=== PATIENT | male | born 1945 | race Caucasian/White ===

== ENCOUNTER 2023-08-21 10:40 | Emergency (ER) | payer MEDICARE, OTHER ==
[2023-08-21 11:31] LABS: Basophils % (A) 1 %; Eosinophils # (A) 0.1 k/uL (0-0.7); Eosinophils % (A) 2 %; HCT 41.1 % (39.0-53.0); HGB 13.4 gm/dL (13.0-17.5); Lymphocytes # (A) 0.9 k/uL (1.0-4.8); Lymphocytes % (A) 21 %; MCH 32.5 pg (25.0-35.0); MCHC 32.6 g/dL (31.0-37.0); MCV 99.6 fL (80.0-100.0); Mean Platelet Volume 9.4; Monocytes # (A) 0.3 k/uL (0-1.0); Monocytes % (A) 7 %; Neutrophils % (A) 68 %; Platelet Count 100 k/uL (150-450); RBC 4.13 m/uL (4.30-5.90); RDW 13.8 % (11.5-15.5); WBC 4.4 k/uL (3.8-10.6)
[2023-08-21 11:48] LABS: ALT <6 U/L (4-49); AST 18 U/L (17-59); African American GFR (CKD) 86 (>60 ml/min/1.73 sqM); Albumin 3.5 g/dL (3.5-5.0); Alcohol <10 mg/dL; Alkaline Phosphatase 65 U/L (38-126); Anion Gap 5 mmol/L; Blood Urea Nitrogen 29 mg/dL (9-20); Calcium 9.2 mg/dL (8.4-10.2); Carbon Dioxide 25 mmol/L (22-30); Chloride 108 mmol/L (98-107); Glucose 142 mg/dL (74-99); Non-African American GFR(CKD) 75 (>60 ml/min/1.73 sqM); Potassium 4.5 mmol/L (3.5-5.1); Sodium 138 mmol/L (137-145); Total Bilirubin 0.8 mg/dL (0.2-1.3); Total Protein 5.9 g/dL (6.3-8.2)
--- NOTE | 2023-08-21 11:59 | ED ---
Altered Mental Status HPI - General Chief Complaint: Altered Mental Status Stated Complaint: Failure to thrive Time Seen by Provider: 08/21/23 10:50 Source: patient Mode of arrival: EMS Limitations: no limitations, altered mental status, physical limitation - History of Present Illness Initial Comments: 77-year-old male brought into the emergency department from [facility]. They sent in the patient as they were concerned for his failure to thrive. He lost his in October. States that he has been going downhill. He has lost over 5 0 pounds because he does not have an appetite. He admits he is so depressed that he wishes he was with her. Nursing facility was concerned that the patient was slightly confused and therefore had him transferred to the hospital for evaluation. Upon my evaluation patient is alert and oriented x 3. Admits to his depression. States that he has balance issues due to his Parkinson's. Denies any head injuries. No urinary complaints. Does admit to pain in his left great toe due to an abnormal nail. No other alleviating, precipitating modifying factors - Related Data Home Medications Medication Instructions Recorded Confirmed Carbidopa-Levodopa ER 50-200Mg 1 tab PO TID@0800,1300,1800 08/21/23 08/21/23 [Sinemet CR 50-200 mg] Pramipexole [Mirapex] 0.25 mg PO BID@0800,2000 08/21/23 08/21/23 Allergies Allergy/AdvReac Type Severity Reaction Status Date / Time No Known Allergies Allergy Verified 08/21/23 13:56 Review of Systems ROS Statement: Those systems with pertinent positive or pertinent negative responses have been documented in the HPI. ROS Other: All systems not noted in ROS Statement are negative. Past Medical History Additional Past Medical History / Comment(s): parkinsons Past Surgical History: No Surgical Hx Reported Past Psychological History: No Psychological Hx Reported Smoking Status: Former smoker Past Alcohol Use History: None Reported Past Drug Use History: None Reported General Exam Limitations: no limitations General appearance: alert, in no apparent distress Head exam: Present: atraumatic, normocephalic, normal inspection Eye exam: Present: normal appearance, PERRL, EOMI. Absent: scleral icterus, conjunctival injection, periorbital swelling ENT exam: Present: normal exam, mucous membranes moist Neck exam: Present: normal inspection. Absent: tenderness, meningismus, lymphadenopathy Respiratory exam: Present: normal lung sounds bilaterally. Absent: respiratory distress, wheezes, rales, rhonchi, stridor Cardiovascular Exam: Present: regular rate, normal rhythm, normal heart sounds. Absent: systolic murmur, diastolic murmur, rubs, gallop, clicks GI/Abdominal exam: Present: soft, normal bowel sounds. Absent: distended, tenderness, guarding, rebound, rigid Extremities exam: Present: normal inspection, full ROM, normal capillary refill. Absent: tenderness, pedal edema, joint swelling, calf tenderness Back exam: Present: normal inspection Neurological exam: Present: alert, oriented X3, CN II-XII intact Psychiatric exam: Present: normal affect, normal mood Skin exam: Present: warm, dry, intact, normal color. Absent: rash Course Vital Signs 08/21/23 08/21/23 08/21/23 10:46 10:48 10:50 Temperature 98.8 F Pulse Rate 56 L 56 L Respiratory 20 16 Rate Blood Pressure 127/73 127/73 O2 Sat by Pulse 91 L 99 99 Oximetry 08/21/23 08/21/23 08/21/23 11:00 11:10 11:20 Temperature Pulse Rate 56 L 57 L 57 L Respiratory 18 18 15 Rate Blood Pressure 127/73 103/58 103/58 O2 Sat by Pulse 98 98 99 Oximetry 08/21/23 08/21/23 08/21/23 11:30 11:40 11:50 Temperature Pulse Rate 54 L 54 L 53 L Respiratory 11 L 11 L 13 Rate Blood Pressure 103/58 101/55 101/55 O2 Sat by Pulse 98 98 99 Oximetry 08/21/23 08/21/23 08/21/23 12:24 14:28 16:14 Temperature Pulse Rate 50 L 60 60 Respiratory 18 18 18 Rate Blood Pressure 120/60 98/60 100/60 O2 Sat by Pulse 99 96 97 Oximetry 08/21/23 08/21/23 08/21/23 19:00 20:24 23:30 Temperature Pulse Rate 56 L 56 L 60 Respiratory 18 18 13 Rate Blood Pressure 108/76 120/70 105/64 O2 Sat by Pulse 99 99 95 Oximetry 08/22/23 08/22/23 08/22/23 00:00 00:30 00:40 Temperature 97.4 F L Pulse Rate 60 57 L 57 L Respiratory 14 17 19 Rate Blood Pressure 107/59 107/72 100/59 O2 Sat by Pulse 98 99 97 Oximetry 08/22/23 08/22/23 08/22/23 02:30 04:30 07:55 Temperature 98.5 F Pulse Rate 57 L 54 L 56 L Respiratory 12 18 17 Rate Blood Pressure 91/52 121/67 109/68 O2 Sat by Pulse 98 97 99 Oximetry 08/22/23 08/22/23 08/22/23 09:00 10:06 14:32 Temperature 97.8 F Pulse Rate 56 L 57 L 81 Respiratory 17 16 18 Rate Blood Pressure 113/63 98/50 133/79 O2 Sat by Pulse 97 96 97 Oximetry Medical Decision Making - Medical Decision Making Was pt. sent in by a medical professional or institution (Dr. PA, CUSTOMER SUCCESS SPECIALIST, urgent care, hospital, or custodial...) When possible be specific @ -Patient sent in by [facility] Did you speak to anyone other than the patient for history (EMS, parent, family, police, friend...)? What history was obtained from this source @ -Poke with the daughter for history Did you review nursing and triage notes (agree or disagree)? Why? @ -I reviewed and agree with nursing and triage notes Were old charts reviewed (outside hosp., previous admission, EMS record, old EKG, old radiological studies, urgent care reports/EKG's, custodial records)? Report findings @ -No old charts were reviewed Differential Diagnosis (chest pain, altered mental status, abdominal pain women, abdominal pain men, vaginal bleeding, weakness, fever, dyspnea, syncope, headache, dizziness, GI bleed, back pain, seizure, CVA, palpatations, mental health, musculoskeletal)? @ -MDM altered mental status EKG interpreted by me (3pts min.). @ -Yes and demonstrates sinus bradycardia with a rate of 56. W[place] interval 188. QRS 134. QTc of 447. Right bundle branch block. No acute ST segment elevations X-rays interpreted by me (1pt min.). @ -Yes and demonstrates no acute process CT interpreted by me (1pt min.). @ -Yes and demonstrates no acute process U/S interpreted by me (1pt. min.). @ -None done What testing was considered but not performed or refused? (CT, X-rays, U/S, labs)? Why? @ -None What meds were considered but not given or refused? Why? @ -None Did you discuss the management of the patient with other professionals (professionals i.e. , PA, CUSTOMER SUCCESS SPECIALIST, lab, RT, psych nurse, social service director, apartment maintenance supervisor, teacher, staff air defense officer, porter sample case)? Give summary @ -Spoke with the EPS who feels that the patient should be transferred to [facility] Was smoking cessation discussed for >3mins.? @ -No Was critical care preformed (if so, how long)? @ -No Were there social determinants of health that impacted care today? How? (Homelessness, low income, unemployed, alcoholism, drug addiction, transpor tation, low edu. Level, literacy, decrease access to med. care, prison, rehab)? @ -Patient resides in [facility] Was there de-escalation of care discussed even if they declined (Discuss DNR or withdrawal of care, Hospice)? DNR status @ -No What co-morbidities impacted this encounter? (DM, HTN, Smoking, COPD, CAD, Cancer, CVA, ARF, Chemo, Hep., AIDS, mental health diagnosis, sleep apnea, morbid obesity)? @ -deression, Parkinson's pression, Parkinson's Was patient admitted / discharged? Hospital course, mention meds given and route, prescriptions, significant lab abnormalities, going to OR and other pertinent info. @ -Upon arrival patient seen and evaluated in room 23. Thorough history and physical exam was performed. Due to reported confusion patient has complete medical workup. He does seem appropriate. Urine is slightly abnormal and therefore will be started on antibiotic. EPS does evaluate the patient. Feels that he does need to be psychiatrically placed. Patient is pending transfer at this time Undiagnosed new problem with uncertain prognosis? @ -No Drug Therapy requiring intensive monitoring for toxicity (Heparin, Nitro, Insulin, Cardizem)? @ -No Were any procedures done? @ -No Diagnosis/symptom? @ -Failure to thrive, acute depression, abnormal UA Acute, or Chronic, or Acute on Chronic? @ -Acute, progressive Uncomplicated (without systemic symptoms) or Complicated (systemic symptoms)? @ -Complicated Side effects of treatment? @ -No Exacerbation, Progression, or Severe Exacerbation? @ -No Poses a threat to life or bodily function? How? (Chest pain, USA, IA, pneumonia, PE, COPD, DKA, ARF, appy, cholecystitis, CVA, Diverticulitis, Homicidal, Suicidal, threat to staff... and all critical care pts) @ -No - Lab Data Result diagrams: 08/21/23 11:06 08/21/23 11:06 Lab Results 08/21/23 08/21/23 08/21/23 Range/Units 11:06 11:06 11:06 WBC 4.4 (3.8-10.6) k/uL RBC 4.13 L (4.30-5.90) m/uL Hgb 13.4 (13.0-17.5) gm/dL Hct 41.1 (39.0-53.0) % MCV 99.6 (80.0-100.0) fL MCH 32.5 (25.0-35.0) pg MCHC 32.6 (31.0-37.0) g/dL RDW 13.8 (11.5-15.5) % Plt Count 100 L (150-450) k/uL MPV 9.4 Neutrophils % 68 % Lymphocytes % 21 % Monocytes % 7 % Eosinophils % 2 % Basophils % 1 % Neutrophils # 3.0 (1.3-7.7) k/uL Lymphocytes # 0.9 L (1.0-4.8) k/uL Monocytes # 0.3 (0-1.0) k/uL Eosinophils # 0.1 (0-0.7) k/uL Basophils # 0.0 (0-0.2) k/uL PT (10.0-12.5) sec INR (<1.2) APTT (22.0-30.0) sec Sodium 138 (137-145) mmol/L Potassium 4.5 (3.5-5.1) mmol/L Chloride 108 H (98-107) mmol/L Carbon Dioxide 25 (22-30) mmol/L Anion Gap 5 mmol/L BUN 29 H (9-20) mg/dL Creatinine 0.97 (0.66-1.25) mg/dL Est GFR (CKD-EPI)AfAm 86 (>60 ml/min/1.73 sqM) Est GFR (CKD-EPI)NonAf 75 (>60 ml/min/1.73 sqM) Glucose 142 H (74-99) mg/dL Calcium 9.2 (8.4-10.2) mg/dL Total Bilirubin 0.8 (0.2-1.3) mg/dL AST 18 (17-59) U/L ALT <6 (4-49) U/L Alkaline Phosphatase 65 (38-126) U/L Troponin I <0.012 (0.000-0.034) ng/mL Total Protein 5.9 L (6.3-8.2) g/dL Albumin 3.5 (3.5-5.0) g/dL Urine Color Urine Appearance (Clear) Urine pH (5.0-8.0) Ur Specific [place] (1.001-1.035) Urine Protein (Negative) Urine Glucose (UA) (Negative) Urine Ketones (Negative) Urine Blood (Negative) Urine Nitrite (Negative) Urine Bilirubin (Negative) Urine Urobilinogen (<2.0) mg/dL Ur Leukocyte Esterase (Negative) Urine RBC (0-5) /hpf Urine WBC (0-5) /hpf Urine Bacteria (None) /hpf Urine Mucus (None) /hpf Urine Opiates Screen (NotDetected) Ur Oxycodone Screen (NotDetected) Urine Methadone Screen (NotDetected) Ur Barbiturates Screen (NotDetected) U Tricyclic Antidepress (NotDetected) Ur Phencyclidine Scrn (NotDetected) Ur Amphetamines Screen (NotDetected) U Methamphetamines Scrn (NotDetected) U Benzodiazepines Scrn (NotDetected) Urine Cocaine Screen (NotDetected) U Marijuana (THC) Screen (NotDetected) Serum Alcohol <10 mg/dL SARS-CoV-2 (PCR) (Not Detectd) 08/21/23 08/21/23 08/21/23 Range/Units 12:00 16:10 18:43 WBC (3.8-10.6) k/uL RBC (4.30-5.90) m/uL Hgb (13.0-17.5) gm/dL Hct (39.0-53.0) % MCV (80.0-100.0) fL MCH (25.0-35.0) pg MCHC (31.0-37.0) g/dL RDW (11.5-15.5) % Plt Count (150-450) k/uL MPV Neutrophils % % Lymphocytes % % Monocytes % % Eosinophils % % Basophils % % Neutrophils # (1.3-7.7) k/uL Lymphocytes # (1.0-4.8) k/uL Monocytes # (0-1.0) k/uL Eosinophils # (0-0.7) k/uL Basophils # (0-0.2) k/uL PT 10.3 (10.0-12.5) sec INR 0.9 (<1.2) APTT 24.2 (22.0-30.0) sec Sodium (137-145) mmol/L Potassium (3.5-5.1) mmol/L Chloride (98-107) mmol/L Carbon Dioxide (22-30) mmol/L Anion Gap mmol/L BUN (9-20) mg/dL Creatinine (0.66-1.25) mg/dL Est GFR (CKD-EPI)AfAm (>60 ml/min/1.73 sqM) Est GFR (CKD-EPI)NonAf (>60 ml/min/1.73 sqM) Glucose (74-99) mg/dL Calcium (8.4-10.2) mg/dL Total Bilirubin (0.2-1.3) mg/dL AST (17-59) U/L ALT (4-49) U/L Alkaline Phosphatase (38-126) U/L Troponin I (0.000-0.034) ng/mL Total Protein (6.3-8.2) g/dL Albumin (3.5-5.0) g/dL Urine Color Light Yellow Urine Appearance Clear (Clear) Urine pH 7.0 (5.0-8.0) Ur Specific [place] 1.018 (1.001-1.035) Urine Protein Negative (Negative) Urine Glucose (UA) Negative (Negative) Urine Ketones Negative (Negative) Urine Blood Negative (Negative) Urine Nitrite Positive (Negative) Urine Bilirubin Negative (Negative) Urine Urobilinogen <2.0 (<2.0) mg/dL Ur Leukocyte Esterase Moderate H (Negative) Urine RBC 1 (0-5) /hpf Urine WBC 8 H (0-5) /hpf Urine Bacteria Few H (None) /hpf Urine Mucus Rare H (None) /hpf Urine Opiates Screen Not Detected (NotDetected) Ur Oxycodone Screen Not Detected (NotDetected) Urine Methadone Screen Not Detected (NotDetected) Ur Barbiturates Screen Not Detected (NotDetected) U Tricyclic Antidepress Not Detected (NotDetected) Ur Phencyclidine Scrn Not Detected (NotDetected) Ur Amphetamines Screen Not Detected (NotDetected) U Methamphetamines Scrn Not Detected (NotDetected) U Benzodiazepines Scrn Not Detected (NotDetected) Urine Cocaine Screen Not Detected (NotDetected) U Marijuana (THC) Screen Not Detected (NotDetected) Serum Alcohol mg/dL SARS-CoV-2 (PCR) Not Detected (Not Detectd) Disposition Clinical Impression: Depressed Disposition: TRANSFER TO PSYCH HOSP/UNIT Condition: Undetermined Is patient prescribed a controlled substance at d/c from ED?: No Referrals: Quoc Edwards DO [Primary Care Provider] - 1-2 days
[2023-08-21 12:31] LABS: INR 0.9 (<1.2); Partial Thromboplastin Time 24.2 sec (22.0-30.0); Prothrombin Time 10.3 sec (10.0-12.5)
--- NOTE | 2023-08-21 13:00 | XR ---
EXAMINATION TYPE: XR chest 2V DATE OF EXAM: 08/21/2023 COMPARISON: None INDICATION: Altered mental status. TECHNIQUE: Frontal and lateral views of the chest are obtained. FINDINGS: The heart size is normal. The pulmonary vasculature is normal. The lungs are clear. Moderate size hiatal hernia with an air-fluid levels present. IMPRESSION: 1. No acute pulmonary process. 2. Hiatal hernia
--- NOTE | 2023-08-21 13:05 | XR ---
EXAMINATION TYPE: XR foot complete LT DATE OF EXAM: 08/21/2023 COMPARISON: None HISTORY: Pain, infection TECHNIQUE: 3 view left foot FINDINGS: No acute fracture or dislocation is evident. No suspicious erosions are evident to suggest osteomyelitis. Follow-up 3 phase bone scan be performed for suspicion clinical suspicion. Hammertoes are present. Small plantar calcaneal heel spur is present. Follow up exams can be performed 7-10 days from acute trauma for continued pain. IMPRESSION: 1. No acute osseous abnormality. 2. No suspicious change suggestive of acute osteomyelitis
--- NOTE | 2023-08-21 13:08 | CT ---
EXAMINATION TYPE: CT brain wo con DATE OF EXAM: 08/21/2023 COMPARISON: INDICATION: Altered mental status DLP: 1138.4 mGycm, Automated exposure control for dose reduction was used. CONTRAST: None CT of the brain is performed utilizing 3 mm thick sections through the posterior fossa and 3 mm thick sections through the remaining calvarium. Study is performed within 24 hours of arrival to the hosp [facility]. No abnormal hyperdensity is present to suggest an acute intracranial hemorrhage. No mass lesion is evident. No acute infarcts are evident. Patchy periventricular white matter hypodensity is present, likely on the basis of chronic white ischemic changes. This may be greater towards the right occipital. Ventricles and sulci are prominent for the patient age. Paranasal sinuses and mastoid air cells within the [id number] are clear. IMPRESSION: 1. Atrophy with chronic appearing periventricular white matter ischemic changes
[2023-08-21 16:30] LABS: Appearance,Urine Clear (Clear); Bacteria,Urine Few /hpf; Bilirubin,Urine Negative (Negative); Blood,Urine Negative (Negative); Color,Urine Light Yellow; Glucose,Urine (UA) Negative (Negative); Ketones,Urine Negative (Negative); Leukocyte Esterase,Urine Moderate (Negative); Mucus,Urine Rare /hpf; Nitrite,Urine Positive (Negative); Protein,Urine Negative (Negative); RBC,Urine 1 /hpf (0-5); Specific Gravity,Urine 1.018 (1.001-1.035); Urobilinogen,Urine <2.0 mg/dL (<2.0); WBC,Urine 8 /hpf (0-5)
[2023-08-21 16:31] LABS: Amphetamine Screen,Urine Not Detected (NotDetected); Barbiturate Screen,Urine Not Detected (NotDetected); Benzodiazepines Screen,Urine Not Detected (NotDetected); Cocaine Screen,Urine Not Detected (NotDetected); Methadone Screen, Urine Not Detected (NotDetected); Opiate Screen,Urine Not Detected (NotDetected); Oxycodone Screen, Urine Not Detected (NotDetected); Phencyclidine Screen,Urine Not Detected (NotDetected); Tricyclic Antidepressant,Urine Not Detected (NotDetected); Urn Cannabinoid Scrn Not Detected (NotDetected)
[2023-08-21] MEDS: cefTRIAXone IN SWFI 1,000 MG/10 ML SYRINGE IVP STA (19:29)
[2023-08-22 15:15] VITALS: BP 133/79; PULSE 81; RESP 18; TEMP 97.8
== END 2023-08-22 14:34 ==
LOC: EC 10:40
DX: F32.A Depression, unspecified (principal); R62.7 Adult failure to thrive; R82.90 Unspecified abnormal findings in urine; I45.10 Unspecified right bundle-branch block; Z11.52 Encounter for screening for COVID-19; Z87.891 Personal history of nicotine dependence
CPT/HCPCS: 82075; 36415; 93005; 80053; 84484; 85025; 85610; 85730; 81001; 80306; 87635; 73630; 71046; 70450; 99285; 96374; G0480; J0696; 80320

== ENCOUNTER 2023-09-20 18:23 | Inpatient (IN) | payer MEDICARE ==
[2023-09-20 19:57] LABS: Basophils # (A) 0.1 k/uL (0-0.2); Basophils % (A) 1 %; Eosinophils # (A) 0.1 k/uL (0-0.7); Eosinophils % (A) 3 %; HCT 37.7 % (39.0-53.0); HGB 12.4 gm/dL (13.0-17.5); Lymphocytes % (A) 23 %; MCH 32.4 pg (25.0-35.0); MCHC 32.8 g/dL (31.0-37.0); MCV 98.8 fL (80.0-100.0); Mean Platelet Volume 9.1; Monocytes # (A) 0.4 k/uL (0-1.0); Monocytes % (A) 8 %; Neutrophils # (A) 2.8 k/uL (1.3-7.7); Neutrophils % (A) 61 %; RBC 3.82 m/uL (4.30-5.90); RDW 13.5 % (11.5-15.5); WBC 4.5 k/uL (3.8-10.6)
[2023-09-20 20:06] LABS: Partial Thromboplastin Time 23.8 sec (22.0-30.0); Prothrombin Time 10.7 sec (10.0-12.5)
--- NOTE | 2023-09-20 20:10 | XR ---
EXAMINATION TYPE: XR chest 2V DATE OF EXAM: 09/20/2023 7:46 PM CLINICAL INDICATION:Male, 77 years old with history of Weakness; [facility] COMPARISON: Chest radiographs from 08/21/2023. TECHNIQUE: XR chest 2V Frontal and lateral views of the chest. FINDINGS: Lungs/Pleura: Prominent interstitial lung markings are seen scattered throughout the lungs. No eviden ce of focal consolidation, pneumothorax or pleural effusion. Pulmonary vascularity: Unremarkable. Heart/mediastinum: Cardiomediastinal silhouette is unremarkable. Musculoskeletal: No acute osseous pathology. IMPRESSION: Chronic changes without acute pulmonary process. No significant change from prior.
[2023-09-20 20:21] LABS: ALT 6 U/L (4-49); AST 18 U/L (17-59); African American GFR (CKD) 85 (>60 ml/min/1.73 sqM); Albumin 3.4 g/dL (3.5-5.0); Alkaline Phosphatase 81 U/L (38-126); Anion Gap 4 mmol/L; Blood Urea Nitrogen 34 mg/dL (9-20); Calcium 9.5 mg/dL (8.4-10.2); Carbon Dioxide 27 mmol/L (22-30); Chloride 110 mmol/L (98-107); Glucose 106 mg/dL (74-99); Magnesium 2.1 mg/dL (1.6-2.3); Non-African American GFR(CKD) 74 (>60 ml/min/1.73 sqM); Potassium 4.4 mmol/L (3.5-5.1); Sodium 141 mmol/L (137-145); Total Bilirubin 0.4 mg/dL (0.2-1.3); Total Protein 5.7 g/dL (6.3-8.2)
[2023-09-20 20:28] LABS: NT-Pro-B-Type Natriuretic Pept 446 pg/mL
[2023-09-20 20:32] LABS: Platelet Count 206 k/uL (150-450)
[2023-09-20 20:46] LABS: Appearance,Urine Clear (Clear); Bilirubin,Urine Negative (Negative); Blood,Urine Negative (Negative); Color,Urine Light Yellow; Glucose,Urine (UA) Negative (Negative); Ketones,Urine Negative (Negative); Leukocyte Esterase,Urine Negative (Negative); Nitrite,Urine Negative (Negative); Protein,Urine Negative (Negative); Specific Gravity,Urine 1.023 (1.001-1.035); Urobilinogen,Urine <2.0 mg/dL (<2.0)
[2023-09-20] MEDS: MECLIZINE 12.5 MG TAB PO STA (22:21)
[2023-09-20] MEDS: SODIUM CHLORIDE 0.9% 1,000 ML IV ONE (22:26)
[2023-09-20] MEDS ORDERED: NALOXONE 0.4 MG/ML 1 ML VIAL IV PRN (22:48)
[2023-09-20] MEDS ORDERED: ACETAMINOPHEN TAB 325 MG TAB PO PRN (22:48)
--- NOTE | 2023-09-20 22:48 | ED ---
General Adult HPI - General Chief complaint: Recheck/Abnormal Lab/Rx Stated complaint: Lethargy Time Seen by Provider: 09/20/23 19:05 Source: EMS Mode of arrival: EMS Limitations: no limitations - History of Present Illness Initial comments: 77-year-old man presents to the emergency department from his [facility] home. It was reported that the patient has been fatigued with decreased responsiveness. Patient had the feeling like he was going to pass out and fell to his knees. EMS was called. He states that he has no will to live. He lost his last October and has been depressed. Patient was seen previously for this and was hospitalized at a psychiatric facility. States that he has been doing well up until recently. He states the home he is in makes him depressed. Patient denies hitting his head. No chest pain or shortness of breath. No other alleviating, precipitating or modifying factors - Related Data Home Medications Medication Instructions Recorded Confirmed Carbidopa-Levodopa ER 50-200Mg 1 tab PO TID@0800,1300,1800 08/21/23 09/21/23 [Sinemet CR 50-200 mg] Pramipexole [Mirapex] 0.25 mg PO BID@0800,2000 08/21/23 09/21/23 FLUoxetine HCL [PROzac] 20 mg PO DAILY@0800 09/21/23 09/21/23 OLANZapine [ZyPREXA] 5 mg PO HS@199909/21/23 09/21/23 Previous Rx's Medication Instructions Recorded Acetaminophen Tab [Tylenol] 650 mg PO Q6HR PRN tab 09/26/23 Folic Acid 1 mg PO DAILY@1200 #30 tab 09/26/23 Multivitamins, Thera [Multivitamin 1 each PO DAILY@1200 #30 tab 09/26/23 (formulary)] Thiamine [Vitamin B-1] 100 mg PO BID-W/MEALS #60 tab 09/26/23 Allergies Allergy/AdvReac Type Severity Reaction Status Date / Time No Known Allergies Allergy Verified 08/21/23 13:56 Review of Systems ROS Statement: Those systems with pertinent positive or pertinent negative responses have been documented in the HPI. ROS Other: All systems not noted in ROS Statement are negative. Past Medical History Additional Past Medical History / Comment(s): parkinsons Past Surgical History: No Surgical Hx Reported Past Psychological History: No Psychological Hx Reported Smoking Status: Former smoker Past Alcohol Use History: None Reported Past Drug Use History: None Reported General Exam Limitations: no limitations General appearance: alert, in no apparent distress Head exam: Present: atraumatic, normocephalic, normal inspection Eye exam: Present: normal appearance, PERRL, EOMI. Absent: scleral icterus, conjunctival injection, periorbital swelling ENT exam: Present: normal exam, mucous membranes moist Neck exam: Present: normal inspection. Absent: tenderness, meningismus, lymphadenopathy Respiratory exam: Present: normal lung sounds bilaterally. Absent: respiratory distress, wheezes, rales, rhonchi, stridor Cardiovascular Exam: Present: regular rate, normal rhythm, normal heart sounds. Absent: systolic murmur, diastolic murmur, rubs, gallop, clicks GI/Abdominal exam: Present: soft, normal bowel sounds. Absent: distended, tenderness, guarding, rebound, rigid Extremities exam: Present: normal inspection, full ROM, normal capillary refill. Absent: tenderness, pedal edema, joint swelling, calf tenderness Back exam: Present: normal inspection Neurological exam: Present: alert, oriented X3, CN II-XII intact Psychiatric exam: Present: depressed Skin exam: Present: warm, dry, intact, normal color. Absent: rash Course Vital Signs 09/20/23 09/20/23 09/21/23 19:02 21:19 02:39 Temperature 94 F L 97.0 F L Pulse Rate 68 56 L 57 L Respiratory 14 16 16 Rate Blood Pressure 127/67 104/53 101/62 O2 Sat by Pulse 94 L 97 95 Oximetry 09/21/23 09/21/23 09/21/23 03:00 06:06 07:45 Temperature 97.6 F Pulse Rate 58 L 57 L Respiratory 16 16 Rate Blood Pressure 108/54 O2 Sat by Pulse 97 Oximetry 09/21/23 09/21/23 09/21/23 09:13 17:41 18:09 Temperature Pulse Rate 69 55 L 62 Respiratory 16 18 18 Rate Blood Pressure 110/68 139/72 130/70 O2 Sat by Pulse 95 98 Oximetry Medical Decision Making - Medical Decision Making Was pt. sent in by a medical professional or institution (, PA, PROPULSION SYSTEMS ENGINEER, urgent care, hospital, or retirement...) When possible be specific @ -Sent in from [facility] Did you speak to anyone other than the patient for history (EMS, parent, family, police, friend...)? What history was obtained from this source @ -Spoke with EMS and the caretakers at the facility for history Did you review nursing and triage notes (agree or disagree)? Why? @ -I reviewed and agree with nursing and triage notes Were old charts reviewed (outside hosp., previous admission, EMS record, old EKG, old radiological studies, urgent care reports/EKG's, retirement records)? Report findings @ -I reviewed the note from [facility] unit where the patient was just hospitalized for depression. Note was from August 23, 2023 Differential Diagnosis (chest pain, altered mental status, abdominal pain women, abdominal pain men, vaginal bleeding, weakness, fever, dyspnea, syncope, headache, dizziness, GI bleed, back pain, seizure, CVA, palpatations, mental health, musculoskeletal)? @ -Differential Mental Health Depression, anxiety, bipolar, psychosis, schizophrenia, borderline personality, situational depression, adjustment disorder, behavioral disorder, brain tumor, malingering, substance abuse, encephalopathy, medication reaction, dementia, hypothyroidism, degenerative neurologic disorder, lupus.... This is not meant to be all-inclusive list EKG interpreted by me (3pts min.). @ - yes and demonstrates sinus bradycardia with a rate of 57. NJ interval 192. QRS 132. QTc of 452. No acute ST segment elevations or depressions X-rays interpreted by me (1pt min.). @ -S and demonstrates no acute process CT interpreted by me (1pt min.). @ -None done U/S interpreted by me (1pt. min.). @ -None done What testing was considered but not performed or refused? (CT, X-rays, U/S, lab s)? Why? @ -None What meds were considered but not given or refused? Why? @ -None Did you discuss the management of the patient with other professionals (professionals i.e. , PA, PROPULSION SYSTEMS ENGINEER, lab, RT, psych nurse, social media intern, senior php web developer, teacher, defence force senior officer, case management social worker)? Give summary @ -I spoke with Lauren from [facility] for admission Was smoking cessation discussed for >3mins.? @ -No Was critical care preformed (if so, how long)? @ -No Were there social determinants of health that impacted care today? How? (Homelessness, low income, unemployed, alcoholism, drug addiction, transportation, low edu. Level, literacy, decrease access to med. care, penitentiary, rehab)? @ -Patient is coming from adult foster care Was there de-escalation of care discussed even if they declined (Discuss DNR or withdrawal of care, Hospice)? DNR status @ -Yes, patient is a no code What co-morbidities impacted this encounter? (DM, HTN, Smoking, COPD, CAD, Cancer, CVA, ARF, Chemo, Hep., AIDS, mental health diagnosis, sleep apnea, morbid obesity)? @ -Depression Was patient admitted / discharged? Hospital course, mention meds given and route, prescriptions, significant lab abnormalities, going to OR and other pertinent info. @ -Upon arrival patient seen and evaluated in room 16. Thorough history and physical exam was performed. I have seen the patient previously for the same complaint. He was hospitalized at [facility] for his depression however does not appear to be helping him. Today the patient ended up falling due to his weakness. Laboratory studies were conducted. Chest x-ray was performed. I will admit the patient medically with psychiatry to consult. Spoke with Lauren from [facility] will admit the patient. Undiagnosed new problem with uncertain prognosis? @ -No Drug Therapy requiring intensive monitoring for toxicity (Heparin, Nitro, Insulin, Cardizem)? @ -No Were any procedures done? @ -No Diagnosis/symptom? @ -Acute depression, failure to thrive, fall Acute, or Chronic, or Acute on Chronic? @ -Acute Uncomplicated (without systemic symptoms) or Complicated (systemic symptoms)? @ -Complicated Side effects of treatment? @ -No Exacerbation, Progression, or Severe Exacerbation? @ -No Poses a threat to life or bodily function? How? (Chest pain, [place], [place], pneumonia, PE, COPD, DKA, ARF, appy, cholecystitis, CVA, Diverticulitis, Homicidal, Suicidal, threat to staff... and all critical care pts) @ -No - Lab Data Result diagrams: 09/26/23 03:20 09/26/23 03:20 Lab Results 09/20/23 09/20/23 09/20/23 Range/Units 19:33 19:33 19:33 WBC 4.5 (3.8-10.6) k/uL RBC 3.82 L (4.30-5.90) m/uL Hgb 12.4 L (13.0-17.5) gm/dL Hct 37.7 L (39.0-53.0) % MCV 98.8 (80.0-100.0) fL MCH 32.4 (25.0-35.0) pg MCHC 32.8 (31.0-37.0) g/dL RDW 13.5 (11.5-15.5) % Plt Count 206 D (150-450) k/uL MPV 9.1 Immature Gran % (Auto) % Absolute Nucleated RBC % Neutrophils % 61 % Lymphocytes % 23 % Monocytes % 8 % Eosinophils % 3 % Basophils % 1 % Immature Gran # (0.00-0.04) X 10*3/uL Neutrophils # 2.8 (1.3-7.7) k/uL Lymphocytes # 1.0 (1.0-4.8) k/uL Monocytes # 0.4 (0-1.0) k/uL Eosinophils # 0.1 (0-0.7) k/uL Basophils # 0.1 (0-0.2) k/uL NRBC/100 WBC Diff (0.00-0.01) X 10*3/uL ESR (0-20) mm/Hr PT 10.7 (10.0-12.5) sec INR 1.0 (<1.2) APTT 23.8 (22.0-30.0) sec Sodium 141 (137-145) mmol/L Potassium 4.4 (3.5-5.1) mmol/L Chloride 110 H (98-107) mmol/L Carbon Dioxide 27 (22-30) mmol/L Anion Gap 4 mmol/L BUN 34 H (9-20) mg/dL Creatinine 0.98 (0.66-1.25) mg/dL Est GFR (CKD-EPI) (>=60) Est GFR (CKD-EPI)AfAm 85 (>60 ml/min/1.73 sqM) Est GFR (CKD-EPI)NonAf 74 (>60 ml/min/1.73 sqM) BUN/Creatinine Ratio (12.00-20.00) Ratio Glucose 106 H (74-99) mg/dL Plasma Lactic Acid Ebenezer (0.7-2.0) mmol/L Calcium 9.5 (8.4-10.2) mg/dL Magnesium 2.1 (1.6-2.3) mg/dL Total Bilirubin 0.4 (0.2-1.3) mg/dL AST 18 (17-59) U/L ALT 6 (4-49) U/L Alkaline Phosphatase 81 (38-126) U/L Ammonia (<30) umol/L Troponin I (0.000-0.034) ng/mL C-Reactive Protein (<1.0) mg/dL NT-Pro-B Natriuret Pep 446 pg/mL Total Protein 5.7 L (6.3-8.2) g/dL Albumin 3.4 L (3.5-5.0) g/dL TSH (0.465-4.680) mIU/L Free T3 pg/mL (2.30-4.20) pg/mL Urine Color Urine Appearance (Clear) Urine pH (5.0-8.0) Ur Specific Moran (1.001-1.035) Urine Protein (Negative) Urine Glucose (UA) (Negative) Urine Ketones (Negative) Urine Blood (Negative) Urine Nitrite (Negative) Urine Bilirubin (Negative) Urine Urobilinogen (<2.0) mg/dL Ur Leukocyte Esterase (Negative) Influenza Type A (PCR) (Not Detectd) Influenza Type B (PCR) (Not Detectd) RSV (PCR) (Not Detectd) SARS-CoV-2 (PCR) (Not Detectd) 09/20/23 09/20/23 09/20/23 Range/Units 19:33 19:33 20:17 WBC (3.8-10.6) k/uL RBC (4.30-5.90) m/uL Hgb (13.0-17.5) gm/dL Hct (39.0-53.0) % MCV (80.0-100.0) fL MCH (25.0-35.0) pg MCHC (31.0-37.0) g/dL RDW (11.5-15.5) % Plt Count (150-450) k/uL MPV Immature Gran % (Auto) % Absolute Nucleated RBC % Neutrophils % % Lymphocytes % % Monocytes % % Eosinophils % % Basophils % % Immature Gran # (0.00-0.04) X 10*3/uL Neutrophils # (1.3-7.7) k/uL Lymphocytes # (1.0-4.8) k/uL Monocytes # (0-1.0) k/uL Eosinophils # (0-0.7) k/uL Basophils # (0-0.2) k/uL NRBC/100 WBC Diff (0.00-0.01) X 10*3/uL ESR (0-20) mm/Hr PT (10.0-12.5) sec INR (<1.2) APTT (22.0-30.0) sec Sodium (137-145) mmol/L Potassium (3.5-5.1) mmol/L Chloride (98-107) mmol/L Carbon Dioxide (22-30) mmol/L Anion Gap mmol/L BUN (9-20) mg/dL Creatinine (0.66-1.25) mg/dL Est GFR (CKD-EPI) (>=60) Est GFR (CKD-EPI)AfAm (>60 ml/min/1.73 sqM) Est GFR (CKD-EPI)NonAf (>60 ml/min/1.73 sqM) BUN/Creatinine Ratio (12.00-20.00) Ratio Glucose (74-99) mg/dL Plasma Lactic Acid Ebenezer 1.5 (0.7-2.0) mmol/L Calcium (8.4-10.2) mg/dL Magnesium (1.6-2.3) mg/dL Total Bilirubin (0.2-1.3) mg/dL AST (17-59) U/L ALT (4-49) U/L Alkaline Phosphatase (38-126) U/L Ammonia (<30) umol/L Troponin I <0.012 (0.000-0.034) ng/mL C-Reactive Protein (<1.0) mg/dL NT-Pro-B Natriuret Pep pg/mL Total Protein (6.3-8.2) g/dL Albumin (3.5-5.0) g/dL TSH (0.465-4.680) mIU/L Free T3 pg/mL (2.30-4.20) pg/mL Urine Color Light Yellow Urine Appearance Clear (Clear) Urine pH 6.0 (5.0-8.0) Ur Specific Moran 1.023 (1.001-1.035) Urine Protein Negative (Negative) Urine Glucose (UA) Negative (Negative) Urine Ketones Negative (Negative) Urine Blood Negative (Negative) Urine Nitrite Negative (Negative) Urine Bilirubin Negative (Negative) Urine Urobilinogen <2.0 (<2.0) mg/dL Ur Leukocyte Esterase Negative (Negative) Influenza Type A (PCR) (Not Detectd) Influenza Type B (PCR) (Not Detectd) RSV (PCR) (Not Detectd) SARS-CoV-2 (PCR) (Not Detectd) 09/20/23 09/21/23 09/21/23 Range/Units 22:28 09:12 09:12 WBC 4.6 (3.8-10.6) k/uL RBC 3.75 L (4.30-5.90) m/uL Hgb 12.5 L (13.0-17.5) gm/dL Hct 37.0 L (39.0-53.0) % MCV 98.5 (80.0-100.0) fL MCH 33.4 (25.0-35.0) pg MCHC 33.9 (31.0-37.0) g/dL RDW 13.3 (11.5-15.5) % Plt Count 212 (150-450) k/uL MPV 9.4 Immature Gran % (Auto) % Absolute Nucleated RBC % Neutrophils % 68 % Lymphocytes % 19 % Monocytes % 6 % Eosinophils % 3 % Basophils % 1 % Immature Gran # (0.00-0.04) X 10*3/uL Neutrophils # 3.1 (1.3-7.7) k/uL Lymphocytes # 0.9 L (1.0-4.8) k/uL Monocytes # 0.3 (0-1.0) k/uL Eosinophils # 0.1 (0-0.7) k/uL Basophils # 0.1 (0-0.2) k/uL NRBC/100 WBC Diff (0.00-0.01) X 10*3/uL ESR (0-20) mm/Hr PT (10.0-12.5) sec INR (<1.2) APTT (22.0-30.0) sec Sodium 139 (137-145) mmol/L Potassium 3.9 (3.5-5.1) mmol/L Chloride 111 H (98-107) mmol/L Carbon Dioxide 21 L (22-30) mmol/L Anion Gap 7 mmol/L BUN 25 H (9-20) mg/dL Creatinine 0.86 (0.66-1.25) mg/dL Est GFR (CKD-EPI) (>=60) Est GFR (CKD-EPI)AfAm >90 (>60 ml/min/1.73 sqM) Est GFR (CKD-EPI)NonAf 83 (>60 ml/min/1.73 sqM) BUN/Creatinine Ratio (12.00-20.00) Ratio Glucose 197 H (74-99) mg/dL Plasma Lactic Acid Ebenezer (0.7-2.0) mmol/L Calcium 9.1 (8.4-10.2) mg/dL Magnesium (1.6-2.3) mg/dL Total Bilirubin (0.2-1.3) mg/dL AST (17-59) U/L ALT (4-49) U/L Alkaline Phosphatase (38-126) U/L Ammonia (<30) umol/L Troponin I (0.000-0.034) ng/mL C-Reactive Protein (<1.0) mg/dL NT-Pro-B Natriuret Pep pg/mL Total Protein (6.3-8.2) g/dL Albumin (3.5-5.0) g/dL TSH (0.465-4.680) mIU/L Free T3 pg/mL (2.30-4.20) pg/mL Urine Color Urine Appearance (Clear) Urine pH (5.0-8.0) Ur Specific Moran (1.001-1.035) Urine Protein (Negative) Urine Glucose (UA) (Negative) Urine Ketones (Negative) Urine Blood (Negative) Urine Nitrite (Negative) Urine Bilirubin (Negative) Urine Urobilinogen (<2.0) mg/dL Ur Leukocyte Esterase (Negative) Influenza Type A (PCR) Not Detected (Not Detectd) Influenza Type B (PCR) Not Detected (Not Detectd) RSV (PCR) Not Detected (Not Detectd) SARS-CoV-2 (PCR) Not Detected (Not Detectd) 06/26/24 06/26/24 06/27/24 Range/Units 14:23 14:23 07:04 WBC 5.27 (3.8-10.6) k/uL RBC 3.91 L (4.30-5.90) m/uL Hgb 12.5 L (13.0-17.5) gm/dL Hct 39.6 (39.0-53.0) % MCV 101.3 H (80.0-100.0) fL MCH 32.0 (25.0-35.0) pg MCHC 31.6 L (31.0-37.0) g/dL RDW 13.2 (11.5-15.5) % Plt Count 215 (150-450) k/uL MPV 11.4 Immature Gran % (Auto) 0.60 % Absolute Nucleated RBC 0 % Neutrophils % 66.1 % Lymphocytes % 18.2 % Monocytes % 10.2 % Eosinophils % 3.4 % Basophils % 1.5 % Immature Gran # 0.03 (0.00-0.04) X 10*3/uL Neutrophils # 3.48 (1.3-7.7) k/uL Lymphocytes # 0.96 (1.0-4.8) k/uL Monocytes # 0.54 (0-1.0) k/uL Eosinophils # 0.18 (0-0.7) k/uL Basophils # 0.08 (0-0.2) k/uL NRBC/100 WBC Diff 0 (0.00-0.01) X 10*3/uL ESR <1 (0-20) mm/Hr PT (10.0-12.5) sec INR (<1.2) APTT (22.0-30.0) sec Sodium (137-145) mmol/L Potassium (3.5-5.1) mmol/L Chloride (98-107) mmol/L Carbon Dioxide (22-30) mmol/L Anion Gap mmol/L BUN (9-20) mg/dL Creatinine (0.66-1.25) mg/dL Est GFR (CKD-EPI) (>=60) Est GFR (CKD-EPI)AfAm (>60 ml/min/1.73 sqM) Est GFR (CKD-EPI)NonAf (>60 ml/min/1.73 sqM) BUN/Creatinine Ratio (12.00-20.00) Ratio Glucose (74-99) mg/dL Plasma Lactic Acid Ebenezer (0.7-2.0) mmol/L Calcium (8.4-10.2) mg/dL Magnesium (1.6-2.3) mg/dL Total Bilirubin (0.2-1.3) mg/dL AST (17-59) U/L ALT (4-49) U/L Alkaline Phosphatase (38-126) U/L Ammonia (<30) umol/L Troponin I (0.000-0.034) ng/mL C-Reactive Protein <0.5 (<1.0) mg/dL NT-Pro-B Natriuret Pep pg/mL Total Protein (6.3-8.2) g/dL Albumin (3.5-5.0) g/dL TSH 1.960 (0.465-4.680) mIU/L Free T3 pg/mL 2.60 (2.30-4.20) pg/mL Urine Color Urine Appearance (Clear) Urine pH (5.0-8.0) Ur Specific Moran (1.001-1.035) Urine Protein (Negative) Urine Glucose (UA) (Negative) Urine Ketones (Negative) Urine Blood (Negative) Urine Nitrite (Negative) Urine Bilirubin (Negative) Urine Urobilinogen (<2.0) mg/dL Ur Leukocyte Esterase (Negative) Influenza Type A (PCR) (Not Detectd) Influenza Type B (PCR) (Not Detectd) RSV (PCR) (Not Detectd) SARS-CoV-2 (PCR) (Not Detectd) 09/22/23 09/22/23 Range/Units 07:04 07:04 WBC (3.8-10.6) k/uL RBC (4.30-5.90) m/uL Hgb (13.0-17.5) gm/dL Hct (39.0-53.0) % MCV (80.0-100.0) fL MCH (25.0-35.0) pg MCHC (31.0-37.0) g/dL RDW (11.5-15.5) % Plt Count (150-450) k/uL MPV Immature Gran % (Auto) % Absolute Nucleated RBC % Neutrophils % % Lymphocytes % % Monocytes % % Eosinophils % % Basophils % % Immature Gran # (0.00-0.04) X 10*3/uL Neutrophils # (1.3-7.7) k/uL Lymphocytes # (1.0-4.8) k/uL Monocytes # (0-1.0) k/uL Eosinophils # (0-0.7) k/uL Basophils # (0-0.2) k/uL NRBC/100 WBC Diff (0.00-0.01) X 10*3/uL ESR (0-20) mm/Hr PT (10.0-12.5) sec INR (<1.2) APTT (22.0-30.0) sec Sodium 142 (137-145) mmol/L Potassium 4.6 (3.5-5.1) mmol/L Chloride 109 (98-107) mmol/L Carbon Dioxide 24.6 (22-30) mmol/L Anion Gap 8.40 mmol/L BUN 24.8 (9-20) mg/dL Creatinine 1.3 (0.66-1.25) mg/dL Est GFR (CKD-EPI) 56 L (>=60) Est GFR (CKD-EPI)AfAm (>60 ml/min/1.73 sqM) Est GFR (CKD-EPI)NonAf (>60 ml/min/1.73 sqM) BUN/Creatinine Ratio 19.08 (12.00-20.00) Ratio Glucose 83 (74-99) mg/dL Plasma Lactic Acid Ebenezer (0.7-2.0) mmol/L Calcium 9.2 (8.4-10.2) mg/dL Magnesium (1.6-2.3) mg/dL Total Bilirubin (0.2-1.3) mg/dL AST (17-59) U/L ALT (4-49) U/L Alkaline Phosphatase (38-126) U/L Ammonia <9 (<30) umol/L Troponin I (0.000-0.034) ng/mL C-Reactive Protein (<1.0) mg/dL NT-Pro-B Natriuret Pep pg/mL Total Protein (6.3-8.2) g/dL Albumin (3.5-5.0) g/dL TSH (0.465-4.680) mIU/L Free T3 pg/mL (2.30-4.20) pg/mL Urine Color Urine Appearance (Clear) Urine pH (5.0-8.0) Ur Specific Moran (1.001-1.035) Urine Protein (Negative) Urine Glucose (UA) (Negative) Urine Ketones (Negative) Urine Blood (Negative) Urine Nitrite (Negative) Urine Bilirubin (Negative) Urine Urobilinogen (<2.0) mg/dL Ur Leukocyte Esterase (Negative) Influenza Type A (PCR) (Not Detectd) Influenza Type B (PCR) (Not Detectd) RSV (PCR) (Not Detectd) SARS-CoV-2 (PCR) (Not Detectd) Disposition Clinical Impression: Near syncope, Depression Disposition: ADMITTED IP TO THIS [facility] Condition: Fair Is patient prescribed a controlled substance at d/c from ED?: No Time of Disposition: 22:48 Decision to Admit Reason: Admit from EC Decision Date: 09/20/23 Decision Time: 22:48
[2023-09-20] MEDS: SODIUM CHLORIDE 0.9% 1,000 ML IV SCH (23:05)
[2023-09-21 09:42] LABS: Basophils # (A) 0.1 k/uL (0-0.2); Basophils % (A) 1 %; Eosinophils # (A) 0.1 k/uL (0-0.7); Eosinophils % (A) 3 %; HGB 12.5 gm/dL (13.0-17.5); Lymphocytes # (A) 0.9 k/uL (1.0-4.8); Lymphocytes % (A) 19 %; MCH 33.4 pg (25.0-35.0); MCHC 33.9 g/dL (31.0-37.0); MCV 98.5 fL (80.0-100.0); Mean Platelet Volume 9.4; Monocytes # (A) 0.3 k/uL (0-1.0); Monocytes % (A) 6 %; Neutrophils # (A) 3.1 k/uL (1.3-7.7); Neutrophils % (A) 68 %; Platelet Count 212 k/uL (150-450); RBC 3.75 m/uL (4.30-5.90); RDW 13.3 % (11.5-15.5); WBC 4.6 k/uL (3.8-10.6)
[2023-09-21 09:53] LABS: African American GFR (CKD) >90 (>60 ml/min/1.73 sqM); Anion Gap 7 mmol/L; Blood Urea Nitrogen 25 mg/dL (9-20); Calcium 9.1 mg/dL (8.4-10.2); Carbon Dioxide 21 mmol/L (22-30); Chloride 111 mmol/L (98-107); Glucose 197 mg/dL (74-99); Non-African American GFR(CKD) 83 (>60 ml/min/1.73 sqM); Potassium 3.9 mmol/L (3.5-5.1); Sodium 139 mmol/L (137-145)
--- NOTE | 2023-09-21 11:48 | CA ---
Transthoracic Echo Report Name: Jace Matthews Age: 77 Gender: M : 1945 Exam Date: 09/21/2023 09:51 Exam Location: [facility] Ht (in): 72 Wt (lb): 150 Ordering Physician: Deepthi Knight DO Attending/Referring Phys: [id number], Antonia Rock Contractor Suzie Hunt, [facility] Procedure CPT: Indications: near syncope Cardiac Hx: Technical Quality: Fair, Technically difficult study Contrast 1: Total Dose (mL): Contrast 2: Total Dose (mL): MEASUREMENTS (Male / Female) Normal Values 2D ECHO LV Diastolic Diameter PLAX 4.3 cm 4.2 - 5.9 / 3.9 - 5.3 cm LV Systolic Diameter PLAX 3.0 cm IVS Diastolic Thickness 1.4 cm 0.6 - 1.0 / 0.6 - 0.9 cm LVPW Diastolic Thickness 1.1 cm 0.6 - 1.0 / 0.6 - 0.9 cm LV Relative Wall Thickness 0.6 RV Internal Dim ED PLAX 2.1 cm LVOT Diameter 2.1 cm Aortic Root Diameter 3.9 cm LA Systolic Diameter LX 3.5 cm 3.0 - 4.0 / 2.7 - 3.8 cm LV Diastolic Volume MOD BP 53.3 cm??? 67 - 155 / 56 - 104 cm??? LV Systolic Volume MOD BP 15.1 cm??? 22 - 58 / 19 - 49 cm??? LV Ejection Fraction MOD BP 71.7 % >= 55 % LV Cardiac Index MOD BP 1279.6 cm???/min???m??? LV Diastolic Volume MOD 4C 62.5 cm??? LV Systolic Volume MOD 4C 19.3 cm??? LV Ejection Fraction MOD 4C 69.0 % LV Cardiac Index MOD 4C 1444.9 cm???/min???m??? LV Diastolic Length 4C 7.3 cm LV Systolic Length 4C 5.3 cm LV Diastolic Volume MOD 2C 37.2 cm??? LV Systolic Volume MOD 2C 11.3 cm??? LV Ejection Fraction MOD 2C 69.7 % LV Cardiac Index MOD 2C 867.8 cm???/min???m??? LV Diastolic Length 2C 5.8 cm LV Systolic Length 2C 5.6 cm M-MODE Aortic Root Diameter MM 4.1 cm LA Systolic Diameter MM 4.0 cm LA Ao Ratio MM 1.0 AV Cusp Separation MM 0.9 cm DOPPLER AV Peak Velocity 349.5 cm/s AV Peak Gradient 48.9 mmHg AV Mean Velocity 266.3 cm/s AV Mean Gradient 31.9 mmHg AV Velocity Time Integral 77.1 cm AI Peak Velocity 233.3 cm/s AI Peak Gradient 21.8 mmHg AI Pressure Half Time 1045.1 ms LVOT Peak Velocity 104.0 cm/s LVOT Peak Gradient 4.3 mmHg LVOT Velocity Time Integral 27.7 cm LVOT Stroke Volume 99.3 cm??? LVOT Stroke Volume Index 52.7 ml/m??? LVOT Cardiac Index 3327.1 cm???/min???m??? AV Area Cont Eq vti 1.3 cm??? AV Area Cont Eq pk 1.1 cm??? Mitral E Point Velocity 59.1 cm/s Mitral A Point Velocity 72.9 cm/s Mitral E to A Ratio 0.8 MV Deceleration Time 331.6 ms MV E' Velocity 7.3 cm/s Mitral E to MV E' Ratio 8.1 TR Peak Velocity 286.3 cm/s TR Peak Gradient 32.8 mmHg FINDINGS Left Ventricle Left ventricular ejection fraction is estimated at 60-65 %. Mildly increased septal wall thickness. No obvious regional wall motion abnormalities. Left ventricular cavity size normal. Right Ventricle Normal RV size. Right ventricular systolic pressure within normal limits. RVSP 35 mmHg Right Atrium Normal right atrial size. Left Atrium Moderate left atrial dilatation. Mitral Valve Myxomatous (redundant) mitral valve. Mitral valve thickened. Mild mitral regurgitation. Aortic Valve Aortic valve not well visualized. Moderate aortic stenosis with a peak gradient of 48mmHg and a mean gradient of 31 mmHg. Mild aortic regurgitation. VTI ratio 0.7 Tricuspid Valve Structurally normal tricuspid valve. Mild tricuspid regurgitation. No tricuspid stenosis. Pulmonic Valve Structurally normal pulmonic valve. Trace pulmonic regurgitation. Pericardium No pericardial or pleural effusion. Aorta Mildly dilated aortic annulus. CONCLUSIONS LVEF 60 to 65% Mild concentric LVH No obvious regional wall motion abnormality Calcific aortic valve with moderate aortic stenosis with mean gradient of 31 mmHg. 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 Mild MR Previewed by: Dr Broderick Willard (Electronically Signed) Final Date: 21 September 2023 11:47
[2023-09-21] MEDS ORDERED: IOPAMIDOL CONTRAST (ORAL USE) VIAL PO PRN (13:20)
[2023-09-21] MEDS: PRAMIPEXOLE 0.25 MG TAB PO SCH (13:43)
[2023-09-21] MEDS: PANTOPRAZOLE 40 MG/10 ML VIAL IVP SCH (13:43)
[2023-09-21] MEDS: CARBIDOPA-LEVODOPA ER 50-200MG 1 EACH TABLET.ER PO SCH (13:54)
[2023-09-21 14:50] LABS: C Reactive Protein <0.5 mg/dL (<1.0)
--- NOTE | 2023-09-21 16:03 | P.CN ---
Psychiatric Consult - . Consult date: 09/21/23 Consult:: 09/21/23 16:02 CONSULTATION Reason for consult: Depression Identifying Data: The patient is 77 years old, white male, who lives in a [facility] in [place], [place]. Reason for admission: Fatigue and decreased and responsiveness. History of present illness: The patient noted that he lost his in October. He did well for some time and then started feeling lonely and took 4-5 pills of his Parkinsons medications and told his son and daughter that he took a bunch of pills. The patient noted that he lied to them. The patient was getting a little confused and was mixing-up the chronology. He could not tell me when he came to the hospital or how he was brought to the hospital He could not tell why he is brought to the hospital. The patients daughter indicated that the patient was admitted to [facility] in [place] in February and then again 2 months later for mentioning that he does not want to live anymore to [facility]. on his way to the hospital for a fall and weakness. [facility] She indicated that her dad has been diagnosed with Parkinsons disease for past 3 years. She noted that the patient started showing memory decline after year and a half of developing Parkinsons disease. He was placed in a [facility] after the first psychiatric admission because he was not eating and forgetting to take his medications. The patient has no other h/o of psychiatric treatment outside the two hospitalizations mentioned above. .He has not been to any out-pt psychiatric facility after the last psychiatric discharge. The patient takes Zyprexa 5 mg and Prozac 20 mg at the [facility], most likely prescribed by PCP. On leading questions, the patient admitted to depression. He denied suicidal or homicidal ideations. He noted that was foolish for him to tell his son and daughter that he took bunch of pills. The patient denied any symptoms of paranoia, or any other delusional thinking, A/V hallucinations. Current and past medications: As stated above. History of past psychiatric illness: No other than stated in HPI. No history of suicidal or homicidal ideations or behavior. Past medical history: Parkinsons disease. Substance abuse history: None MSE: Alert and attentive Orientation X2. Pleasant and cooperative. Psychomotor activity: Reduced Speech: Low toned, normal in quality, under productive Mood: Depressed. Affect: Consistent with mood. SI or HI: None Thought content: Normal Thought process: Normal Perceptual disturbance: none Cognition: Mild confusion and memory impairment, higher cognitive functions intact. Judgement and Insight: Fair. Diagnosis: Major depressive disorder in partial remission. Parkinson Disease with mild memory impairment Plan: Hold current psychiatric medications ill medical work is completed and then reinstate psychiatric medications, if not contraindications. The rn case management to arrange for out-pt psychiatric clinic for out-pt follow-up after discharge.
--- NOTE | 2023-09-21 17:26 | CT ---
EXAMINATION TYPE: CT brain wo con DATE OF EXAM: 09/21/2023 COMPARISON: 08/21/2023 HISTORY: 77-year-old male weakness, ams TECHNIQUE: Examination was done in axial plane without intravenous contrast. Coronal and sagittal r econstructions performed. CT DLP: 1140 mGycm Automated exposure control for dose reduction was used. FINDINGS: There is no evidence of acute intracranial hemorrhage, acute ischemic changes, mass, mass-effect, or extra-axial fluid collection. There is no effacement of cerebral sulci or basal subarachnoid cister ns. There is mild hydrocephalus, Conner's ratio calculated at 0.38. There is no midline shift. Quan-white matter distinction is preserved. Confluent white matter hypodensity posterior biospheres. Subcortical and some inflammation right fron kristi lobe redemonstrated. Lacunar and deep white matter are left basal ganglia and left maguire radiata . Near complete opacification right maxillary sinus. Mild mucosal thickening ethmoid air cells. Rightwa rd nasal septal deviation. Orbits and globes are intact. Mastoid air cells well pneumatized. IMPRESSION: 1. Moderate to severe confluent burden of chronic small vessel ischemic disease. Cortical encephaloma lacia right frontal lobe suggesting area of old infarct. Additional deep white matter infarct left co bettina radiata. No acute intracranial abnormality seen. If concern for subtle acute ischemia, follow-up MRI. 2. Mild hydrocephalus may in part relate to central cerebral atrophy. Correlate to exclude a componen t of NPH. 3. Severe chronic right maxillary sinusitis.
[2023-09-21] MEDS: THIAMINE 100 MG TAB PO SCH (17:36)
--- NOTE | 2023-09-21 17:38 | CT ---
EXAMINATION TYPE: CT ChestAbdPelvis wo con DATE OF EXAM: 09/21/2023 COMPARISON: None HISTORY: 77-year-old male with weight loss, weakness, ams TECHNIQUE: Contiguous axial scanning of the chest, abdomen, and pelvis without IV contrast. Coronal a nd sagittal reconstructions performed. CT DLP: 556.6 mGycm Automated exposure control for dose reduction was used. FINDINGS: Chest: Heart normal size with trace anterior pericardial effusion measuring 6 mm thick. Moderate aortic valv ular calcifications. Mild scattered three-vessel coronary calcifications. Ectatic aortic root at 3.8 cm and ascending aorta 4.0 cm. Mild atherosclerotic arch calcifications in conventional vessel branching anatomy. No thoracic lymphadenopathy by CT size criteria. Mild patchy opacities at both lung bases, likely representing atelectasis. There is a 4 mm pulmonary nodule at the periphery of the right lower lobe, axial image 48 which can b e reassessed at follow-up. Mild emphysematous change. Mild biapical pleural-parenchymal scarring. No consolidation or pleural effusion. ABDOMEN: There is a large paraesophageal hernia with the entire stomach located at the left base and demonstra ting organoaxial positioning Noncontrast appearance of the liver, gallbladder, adrenal glands, kidneys, spleen, and pancreas show no gross abnormality. There is a 4.0 cm diverticulum of the third portion of the duodenum projecting superiorly. The third portion of the duodenum here shows mild thickening, axial image 80 which should be reassessed on foll ow-up. No dilated small bowel, free fluid, or free air. Generalized colonic diverticulosis with scattered moderate stool. The rectum is distended up to 8.7 cm wide with stool. Foci of air along the periphery of the rectum p robably represents air trapped between stool and the rectal wall. Minimal presacral edema is demonstr ated. No mesenteric or retroperitoneal lymphadenopathy seen. Pelvis: Bladder urine distended. Prostate gland measures 5.0 cm wide. No abnormal fluid collection in the pel vis or pelvic lymphadenopathy. Bones: No osseous destructive process. IMPRESSION: 1. A large paraesophageal hernia involving the entire stomach within the left lower chest and with or ganoaxial positioning. Correlate for any associated symptoms. 2. COPD with mild emphysema. A 4 mm right lower lobe pulmonary nodule can be reassessed at a 6 month follow-up CT. 3. Large amount of stool distending the rectum up to nearly 19 mm wide. Foci of air along the periphe ry of the rectal wall probably represents trapped air rather than rectal wall pneumatosis. Correlate with lactic acid levels to exclude the possibility of any ischemic change. Disimpaction advised if th e patient is unable to pass the stool. 4. Third portion the duodenum shows mild circumferential wall thickening which may be due to incomple te distention or duodenitis. Recommend three-month follow-up CT to ensure a stable or improved appear ance and exclude any possibility of early neoplasm here. There is an adjacent 4 cm duodenal diverticu lum. 5. Generalized colonic diverticulosis. No convincing findings of acute diverticulitis.
[2023-09-21] MEDS: HEPARIN SODIUM,PORCINE 5,000 UNIT/ML 1 ML VIAL SQ SCH (21:08)
--- NOTE | 2023-09-21 23:28 | HP ---
HISTORY AND PHYSICAL CHIEF COMPLAINT: Weakness, weight loss, and change in mental status. HISTORY OF PRESENT ILLNESS: This is a 77-year-old gentleman with a past medical history of Parkinson's, was complaining of diminished p.o. intake and as well as progressive weight loss and significant weakness. The patient was confused also. The patient came to [facility]. The patient also had a fall, so was admitted for further evaluation and treatment. The patient is also found to be depressed as well. COVID-19 test was negative. Otherwise, chest x-ray showed only chronic changes, no acute abnormality. An echocardiogram was ordered, which was read by Cardiology as showing normal ejection fraction. There is no history of any fever, rigors, or chills. PAST MEDICAL HISTORY: Parkinson's. HOME MEDICATIONS: Mirapex and dose and rest of medications noted. ALLERGIES: None. FAMILY HISTORY: No history of heart disease or strokes in the family. SOCIAL HISTORY: Remote history of smoking. REVIEW OF SYSTEMS: Fourteen-point review is negative except as mentioned earlier. PHYSICAL EXAMINATION: VITAL SIGNS: Pulse is 57, blood pressure 186/56, respirations 16. HEENT: Conjunctivae normal. NECK: No JVD. CARDIOVASCULAR: S1, S2. RESPIRATIONS: Breath sounds diminished at the bases. A few scattered rhonchi. ABDOMEN: Soft. Minimal discomfort in the upper abdomen. No guarding. No rigidity. No mass palpable. LEGS: No edema. No swelling. NERVOUS SYSTEM: Diffusely weak. Tone is increased slightly. Some diffuse wasting also present. SKIN: No ulcer, rash, bleeding. JOINTS: No active deforming arthropathy. LABORATORY DATA: WBC 4.2, hemoglobin 12.7. Rest of the labs are reviewed. ASSESSMENT: 1. Severe weakness and gait dysfunction, possibly parkinsonian exacerbation. 2. Diffuse weight loss and malnutrition, rule out internal malignancy. 3. Anemia, normocytic. 4. Depression. 5. Remote history of nicotine dependence. RECOMMENDATIONS AND DISCUSSION: This is a 77-year-old gentleman, who presented with multiple complex medical issues, we will monitor the patient closely. The exact etiology of the patient's pathology is unknown at this time, I recommend Neurology consultation and evaluation of Parkinson's and adjust medications if necessary. PT, OT evaluation, possible ECF rehab, and I would also recommend CT scan of chest, abdomen, and pelvis to rule out any internal malignancy also at this time. CT scan of the brain also will be ordered. Overall prognosis extremely guarded because of multiple complex medical issues. Further recommendations to follow. I would recommend the patient is a full admit to evaluate and treat the above-mentioned multiple complex medical issues. The patient is confused also. I would recommend cultures to rule out the remote possibility of sepsis as well. Further recommendations to follow. MMODL / IJN: [id number] /
[2023-09-22 10:35] LABS: Basophils # (A) 0.08 X 10*3/uL (0.00-0.10); Basophils % (A) 1.5 %; Eosinophils # (A) 0.18 X 10*3/uL (0.04-0.35); Eosinophils % (A) 3.4 %; HCT 39.6 % (39.6-50.0); HGB 12.5 g/dL (13.0-17.0); Lymphocytes # (A) 0.96 X 10*3/uL (0.90-5.00); Lymphocytes % (A) 18.2 %; MCHC 31.6 g/dL (32.0-37.0); MCV 101.3 FL (80.0-97.0); Mean Platelet Volume 11.4 FL (9.5-12.2); Monocytes # (A) 0.54 X 10*3/uL (0.20-1.00); Monocytes % (A) 10.2 %; NRBC Per 100 WBC 0 X 10*3/uL (0.00-0.01); Neutrophils # (A) 3.48 X 10*3/uL (1.80-7.70); Neutrophils % (A) 66.1 %; Platelet Count 215 X 10*3/uL (140-440); RBC 3.91 X 10*6/uL (4.40-5.60); RDW 13.2 % (11.5-14.5); WBC 5.27 X 10*3/uL (4.50-10.00)
[2023-09-22 10:39] LABS: BUN/Creat Ratio 19.08 Ratio (12.00-20.00); Blood Urea Nitrogen 24.8 mg/dL (9.0-27.0); Calcium 9.2 mg/dL (8.7-10.3); Carbon Dioxide 24.6 mmol/L (21.6-31.8); Chloride 109 mmol/L (96-109); Glucose 83 mg/dL (70-110); Potassium 4.6 mmol/L (3.5-5.5); Sodium 142 mmol/L (135-145)
[2023-09-22] MEDS: MULTIVITAMINS, THERA 1 EACH TAB PO SCH (11:18)
[2023-09-22] MEDS: FOLIC ACID 1 MG TAB PO SCH (11:18)
[2023-09-22 13:54] VITALS: BMI 20.3
--- NOTE | 2023-09-22 15:16 | PN ---
PROGRESS NOTE DATE OF SERVICE: 09/22/2023 This is a 77-year-old gentleman who was admitted with severe weakness and gait dysfunction, who is also being worked up to rule out the possibility of malignancy. CAT scan of chest, abdomen and pelvis showed large paraesophageal hernia with anterior stomach located in the left base, COPD. Multiple abnormalities on the CAT scan were noted, recommended repeat CAT scan. No chest pain. No palpitations. No fever. The patient is mildly confused. PHYSICAL EXAMINATION: VITAL SIGNS: Pulse 63, blood pressure n, respirations 16. CHEST: Few scattered rhonchi. ABDOMEN: Soft, nontender. LEGS: No edema. No swelling. NERVOUS SYSTEM: Nonfocal. LABORATORY DATA: Hemoglobin 12.5. Rest of the labs are noted. ASSESSMENT: 1. Severe weakness and gait dysfunction, possibly parkinsonian, acute exacerbation. 2. Diffuse weight loss and malnutrition. 3. Paraesophageal hernia, severe. 4. Rule out internal malignancy. 5. Anemia, normocytic. 6. Depression. 7. Remote history of nicotine dependence. RECOMMENDATIONS AND DISCUSSION: Recommend to continue current management and treatment, otherwise closely follow with Neurology. PT/OT evaluation. Guarded prognosis. Further recommendations to follow. MMODL / IJN: [id number] / [facility]
--- NOTE | 2023-09-22 16:06 | P.CNNES ---
History of Present Illness Consult date: 09/22/23 Requesting physician: Laron Reid Reason for Consult: Parkinson's History of Present Illness: Patient is a 77-year-old male who has been diagnosed with Parkinson's disease, came to the hospital by ambulance 2 days ago at 6:23 PM. As per EMS flowsheet patient complains of generalized global weakness, flulike symptoms, lethargy, depression and anxiety for 3 days. Patient was alert and orient x 4 with GCS of 15. Patient was speaking in complete sentences and vitals stable. Patient reports having a cold and feeling weak and tired for the last 3 days. Patient feels depressed because his in last October. He denied any suicidal thoughts. He has been complaining of anxiety. Patient was diagnosed with Parkinson's disease 8 months ago. Patient's vitals at the scene was blood pressure 151/54, pulse rate 53, respirations 16 saturation 99% temperature 98.7. Blood sugar 98 mg/dL. Blood test shows normal WBC, hemoglobin 12.4, platelets are normal. PT PTT normal, electrolytes, renal function, hepatic panel, troponin are normal. TSH 1.96, free T42.6. UA negative. Influenza, RSV and coronavirus PCR negative. CT head showed moderate to severe confluent burden of chronic small vessel ischemic disease. Cortical encephalomalacia right frontal lobe suggesting area of old infarct. Additional deep white matter infarct left maguire radiata. No acute intracranial abnormality seen. Mild hydrocephalus may in part related to central cerebral atrophy. Correlate to exclude a component of NPH. Severe chronic right maxillary sinusitis. I personally reviewed CT head, agree with e findings. Patient states that he was diagnosed with Parkinson's disease about 6 months ago. He follows up with the neurologist Dr. Ivy close to [facility]. 2D echo revealed mildly increased septal wall thickness, with LVEF 60 to 65%. No obvious regional wall motion abnormalities. Moderate left atrial dilation. Mild thickening of mitral valve leaflets suggest mild myxomatous degeneration. Mild MR. EKG shows sinus bradycardia with heart rate of 57. CT of abdomen pelvis revealed large paraesophageal hernia, COPD, third portion of duodenum shows mild circumferential wall thickening which may be due to incomplete distention or duodenitis. Recommend follow-up. Diverticulosis. Patient has been seen by general surgery, and patient undergoing possible hernia surgery on Tuesday. Home medications include Mirapex 0.25 mg twice daily, Sinemet ER 50/200 3 times daily at 8 AM, 1 PM and 6 PM. Prozac 20 mg and Zyprexa 5 mg bedtime. Patient states he is taking Sinemet 4 times a day, 8 AM, 1 PM, 5 PM and 8 PM. But later he said that he is taking it 3 times a day. He is not very sure. He is not sure if he is taking Mirapex either. Patient states he lives alone, although the nurse reports that he lives in a nursing home and the medications are supervised. Patient has smoked 1 pack/day for 40 years, quit 5 years ago. Patient lives by himself. He does have 2 adult children. Patient's in December 2022, and he has been depressed since. He uses walker once in a while. Otherwise he does not use any device. Review of Systems Constitutional: Reports weight loss, Denies chills, Denies fever Eyes: denies blurred vision, denies diplopia, denies pain Ears: deny: decreased hearing, ear discharge Ears, nose, mouth and throat: Denies headache, Denies sore throat, Denies vertigo Cardiovascular: Denies chest pain, Denies lightheadedness, Denies shortness of breath Respiratory: Denies cough, Denies excessive sputum Gastrointestinal: Denies abdominal pain, Denies diarrhea, Denies nausea, Denies vomiting Genitourinary: Reports incontinence (urge), Denies dysuria Musculoskeletal: Denies low back pain, Denies myalgias, Denies neck pain Integumentary: Denies pruritus, Denies rash Neurological: Reports as per HPI Psychiatric: Reports anxiety, Reports depression, Denies memory loss Endocrine: Reports fatigue, Reports weight change Past Medical History Additional Past Medical History / Comment(s): parkinsons History of Any Multi-Drug Resistant Organisms: None Reported Past Surgical History: No Surgical Hx Reported Past Psychological History: No Psychological Hx Reported Smoking Status: Former smoker Past Alcohol Use History: None Reported Past Drug Use History: None Reported Medications and Allergies Home Medications Medication Instructions Recorded Confirmed Type Carbidopa-Levodopa ER 50-200Mg 1 tab PO TID@0800,1300,1800 08/21/23 09/21/23 History [Sinemet CR 50-200 mg] Pramipexole [Mirapex] 0.25 mg PO BID@0800,2000 05/26/24 06/26/24 History FLUoxetine HCL [PROzac] 20 mg PO DAILY@79909/21/23 09/21/23 History OLANZapine [ZyPREXA] 5 mg PO HS@199909/21/23 09/21/23 History Allergies Allergy/AdvReac Type Severity Reaction Status Date / Time No Known Allergies Allergy Verified 08/21/23 13:56 Physical Examination - Vital Signs Vital Signs: Vital Signs Temp Pulse Pulse Resp BP BP BP 09/22/23 07:00 98.0 F 56 L 16 119/66 09/22/23 02:08 98.4 F 63 16 98/55 09/22/23 02:00 63 09/21/23 21:08 57 L 09/21/23 20:34 98.2 F 57 L 16 128/78 09/21/23 18:58 55 L 09/21/23 18:35 97.7 F 55 L 16 131/70 09/21/23 18:09 62 18 130/70 09/21/23 17:41 55 L 18 139/72 Pulse Ox 09/22/23 07:00 99 09/22/23 02:08 99 09/22/23 02:00 09/21/23 21:08 09/21/23 20:34 99 09/21/23 18:58 09/21/23 18:35 100 09/21/23 18:09 98 09/21/23 17:41 Intake and Output 09/21/23 09/22/23 09/22/23 22:59 06:59 14:59 Intake Total 118 Output Total 900 Balance -900 118 Intake: Oral 118 Output: Urine 900 Other: Voiding Method Urinal Urinal Diaper Diaper # Voids 3 Weight 68.039 kg Patient is an elderly male, very pleasant, no acute distress. Patient is alert awake oriented to time place and person. Patient knows it is September 23, 2023, his complete date of and that he is in "[facility]" in [facility] and name of the current president Mr. Robins. He knows it is summer season, but believes it is Tuesday (although actually ). Speech and language functions are normal. Patient can name and repeat very well. No aphasia or dysarthria. Attention, concentration and fund of knowledge is adequate. On cranial nerve examination, pupils are equal, round and reacting to light, visual guevara are full on confrontation, with no neglect on double simultaneous stimulation. Extraocular muscles are intact with no nystagmus. Face is symmetric, tongue protrudes to the midline. Palatal elevation and sensation normal, hearing and shoulder shrug normal, facial sensation normal. On muscle strength testing, there is no pronator drift and the strength is normal in arms and legs distally and proximally. Deep tendon reflexes are symmetric 1 at the brachioradialis, 2 at the biceps, 2 knees and plantars are flat. Sensory to touch is equal with no neglect on double simultaneous stimulation. Cerebellar function showed no ataxia for uldzjv-me-chiu testing. There is mild, or mild to moderate tremor for orwjij-ov-tnno testing bilaterally, left slig htly more than right. There is mild fine tremors of outstretched hands. Mild tremors at rest, right more than left. No ataxia for tuag-ac-vdth testing on either side. Tone and bulk of muscles normal. Patient does not appear bradykinetic. Gait deferred.. On general examination, there is no carotid bruit or murmur, S1-S2 audible. Chest is clear on consultation. Abdomen is soft nontender. No organomegaly, bowel sounds present. Peripheral pulses are present. No peripheral edema. Results - Laboratory Findings CBC and BMP: 09/23/23 03:43 09/23/23 03:43 Abnormal Lab Findings: Abnormal Labs 09/20/23 09/20/23 09/21/23 19:33 19:33 09:12 RBC 3.82 L 3.75 L Hgb 12.4 L 12.5 L Hct 37.7 L 37.0 L MCV MCHC Lymphocytes # 0.9 L Chloride 110 H Carbon Dioxide BUN 34 H Est GFR (CKD-EPI) Glucose 106 H Total Protein 5.7 L Albumin 3.4 L 09/21/23 09/22/23 09/22/23 09:12 07:04 07:04 RBC 3.91 L Hgb 12.5 L Hct MCV 101.3 H MCHC 31.6 L Lymphocytes # Chloride 111 H Carbon Dioxide 21 L BUN 25 H Est GFR (CKD-EPI) 56 L Glucose 197 H Total Protein Albumin Assessment and Plan Assessment: * Possible Parkinson's disease. Patient has some tremors at rest, along with postural and intention tremors as well. His Parkinson's is fairly well- controlled. He does not appear bradykinetic, and the tone of muscles is normal. This could be related to optimal control of Parkinson's disease. * Abnormal CT head, rule out NPH. Evidence of previous CVA. * Large paraesophageal hiatal hernia, involving the entire stomach within the left lower chest * Ex tobacco use Plan: * Patient's Parkinson's is fairly well-controlled. Patient will continue Sinemet ER 50/200, 1 tablet 3 times daily, and Mirapex 0.25 mg twice daily. * I would recommend to discontinue Zyprexa, as it can produce drug-induced Parkinson's. * TSH is normal. Ammonia <9 * CT head revealed mild normal pressure hydrocephalus. Recommend patient follow-up with his neurologist, or perhaps a neurosurgeon as an outpatient. CT head also revealed evidence of old CVA. We will check carotid Doppler. Also check lipid panel and A1c. * Patient possibly undergoing surgery for large paraesophageal hernia on 09/26/2023. * Neurologically clear. Recommend patient follow-up with his neurologist outpatient in 1-2 weeks after discharge. * Thank you for the consult.
[2023-09-22] MEDS: MELATONIN 3 MG TABLET PO PRN (21:57)
--- NOTE | 2023-09-23 02:37 | CONS ---
CONSULTATION CHIEF COMPLAINT: Lethargy and fatigue. HISTORY OF PRESENT ILLNESS: This is a 77-year-old male, who presented with fatigue and weakness. He is from an [facility] home. The patient is a poor historian. The patient reports that he is tolerating diet with no nausea and vomiting currently. Due to the patient having weight loss, and malnutrition, Medicine Service ordered a CT scan of the chest, abdomen, and pelvis. Results reported a large paraesophageal hiatal hernia involving the entire stomach within the left lower chest and with organoaxial positioning. Surgical Service was consulted. The patient currently denies any abdominal pain. Denies any nausea, or vomiting. He did have a large bowel movement. PAST MEDICAL HISTORY: Includes Parkinson's. PAST SURGICAL HISTORY: None. REVIEW OF SYSTEMS: Please refer to HPI. PHYSICAL EXAMINATION: ABDOMEN: Soft, nontender, nondistended. NEURO: The patient is confused. Able to answer some questions. VITAL SIGNS: Stable. LABORATORY RESULTS: WBC is 5.27, HGB 12.5, platelets 215. Sodium 142, potassium 4.6, creatinine 1.3. CT scan chest, abdomen and pelvis reports large paraesophageal hernia involving entire stomach, within the left lower chest, and with organoaxial positioning. COPD with mild emphysema. A 4 mm right lower lobe pulmonary nodule. Large amount of stool distending the rectum up to nearly 19 mm wide. ASSESSMENT: 1. Large paraesophageal hiatal hernia involving the entire stomach within the left lower chest. 2. Organoaxial volvulus. PLAN: The patient is scheduled for laparoscopic repair of hiatal hernia on Tuesday with Dr. Jaramillo. Continue to medically optimize patient. Okay to continue regular diet for now. Continue supportive care. MMODL / IJN: [id number] /
[2023-09-23 08:41] LABS: BUN/Creat Ratio 21.46 Ratio (12.00-20.00); Blood Urea Nitrogen 27.9 mg/dL (9.0-27.0); Calcium 9.1 mg/dL (8.7-10.3); Carbon Dioxide 25.3 mmol/L (21.6-31.8); Chloride 107 mmol/L (96-109); Glucose 95 mg/dL (70-110); Potassium 4.5 mmol/L (3.5-5.5); Sodium 140 mmol/L (135-145)
[2023-09-23 08:43] LABS: Basophils # (A) 0.04 X 10*3/uL (0.00-0.10); Basophils % (A) 0.7 %; Eosinophils # (A) 0.18 X 10*3/uL (0.04-0.35); Eosinophils % (A) 3.1 %; HCT 36.5 % (39.6-50.0); Lymphocytes # (A) 1.18 X 10*3/uL (0.90-5.00); Lymphocytes % (A) 20.3 %; MCH 32.8 pg (27.0-32.0); MCHC 32.9 g/dL (32.0-37.0); MCV 99.7 FL (80.0-97.0); Mean Platelet Volume 11.6 FL (9.5-12.2); Monocytes # (A) 0.61 X 10*3/uL (0.20-1.00); Monocytes % (A) 10.5 %; NRBC Per 100 WBC 0 X 10*3/uL (0.00-0.01); Neutrophils # (A) 3.79 X 10*3/uL (1.80-7.70); Neutrophils % (A) 65.1 %; Platelet Count 193 X 10*3/uL (140-440); RBC 3.66 X 10*6/uL (4.40-5.60); RDW 13.2 % (11.5-14.5); WBC 5.82 X 10*3/uL (4.50-10.00)
--- NOTE | 2023-09-23 11:34 | CDI ---
Documentation Clarification Form Date: 09/23/2023 10:34:54 AM From: Laila Dodge RN CCDS Phone: [phone] Admit Date: 09/22/2023 07:44:00 AM Patient Name: Jace Matthews Visit Number: [id number] Discharge Date: ATTENTION: The Clinical Documentation Specialists (CDI) and [facility] Coding Staff appreciate your assistance in clarifying documentation. Please respond to the clarification below the line at the bottom and electronically sign. The CDI & [facility] Coding staff will review the response and follow-up if needed. Please note: Queries are made part of the Legal Health Record. If you have any questions, please contact the author of this message via ITS. Dr. Laron Reid Malnutrition is documented 09/20, HP. Additional clarification regarding the severity of malnutrition is requested. History/Risk Factors: 77 year old male presents to the ED with fatigue and weakness. Medical History: Parkinsons disease, Depression and Anemia. 09/22, HP Clinical Indicators: 09/20, HP: Diffuse weight loss and malnutrition RD Consult Assessment: 09/21 Current BMI: 20.3kg/m Height 6ft Weight 68.039kg estimated by staff. Usual weight 79.379kg Weight loss 11.34kg related to: Depression, decreased intake, a year ago and she cooked the meals. Duration one year. Estimated nutritional needs Kcals: 25 -30 Kcals/Kg. Energy Needs 1,700 2,040 Kcal Estimated nutritional needs Protein: Estimated 1.25 gram/kg, Estimated Protein 85 grams/day Estimated fluid needs: Fluid formula 1ml/Kcal, Estimated fluid 1,700 2,040mls/day Nutritional diagnosis clinical : Unintended weight loss related to depression evidenced by weight loss of 25lbs x 1 year. [Cite applicable ASPEN criteria listed below] Treatment: Heart healthy diet, monitor po intake, and supplement intake. Diet education. Supplements: Magic cup BID Please clarify the severity of malnutrition, if known: [ ] Moderate Protein-Calorie Malnutrition [ ] Severe Protein-Calorie Malnutrition [ ] Other condition, please specify [ ] Unable to Determine Reference: Using the ASPEN Guidelines, Undernutrition (Malnutrition) is characterized by at least two of the following six findings. The severity can be determined based on the criteria listed below. Malnutrition Characteristics for Moderate and Severe Malnutrition Type of Malnutrition Acute Illness or Injury Chronic Illness Degree of Malnutrition Non-severe (moderate) Malnutrition Severe Malnutrition Non-severe (moderate) Malnutrition Severe Malnutrition Energy Intake <75% for >7 days = 50% for = 5 days <75% for = 1 month =75% for = 1 month Weight Loss 1-2% in one week, 5% in 1 month, 7.5% in 3 months 2% in one week, >5% in 1 month, >7.5% in 3 months 5% in one month, 7.5% in 3 months, 10% in 6 months, 20% in 1 year >5% in one month, >7.5% in 3 months, >10% in 6 months, >20% in 1 year Body Fat Wasting Mild Moderate Mild Severe Muscle Wasting Mild Moderate Mild Severe Presence of Edema Mild Moderate to Severe Mild Severe Literature Teacher Strength Not applicable Measurably Reduced Not applicable Measurably Reduced Source: Deb BlancoV, Carina P, Baljit G, et al. Consensus statement: Academy of Nutrition and Dietetics and [place] Society for Parenteral and Enteral Nutrition: characteristics recommended for the identification and documentation of adult malnutrition (undernutrition).HEATHER J Parenter Enteral Nutr. 2012;36(3):275-283. (Template Last Revised: September 2022) Unable to Determine MTDD
--- NOTE | 2023-09-23 12:40 | US ---
EXAMINATION TYPE: US carotid duplex BILAT DATE OF EXAM: 09/23/2023 COMPARISON: NONE CLINICAL INDICATION: Male, 77 years old with history of Abnormal CT, rule out stenosis; abnormal CT TECHNIQUE: Carotid duplex ultrasound examination. Indirect Doppler criteria was utilized. FINDINGS: EXAM MEASUREMENTS: RIGHT: Peak Systolic Velocity (PSV) cm/sec ----- Right CCA: 97.1 ----- Right ICA: 119 ----- Right ECA: 138 ICA/CCA ratio: 1.2 RIGHT: End Diastole cm/sec ----- Right CCA: 16.1 ----- Right ICA: 26.1 ----- Right ECA: 9.1 LEFT: Peak Systolic Velocity (PSV) cm/sec ----- Left CCA: 114 ----- Left ICA: 82.0 ----- Left ECA: 125 ICA/CCA ratio: 0.7 LEFT: End Diastole cm/sec ----- Left CCA: 17.4 ----- Left ICA: 23.2 ----- Left ECA: 8.7 VERTEBRALS (direction of flow): Right Vertebral: Antegrade Left Vertebral: Antegrade Rhythm: Normal FORK LIFT MECHANIC NOTES: plaque seen in bilateral bulbs and prox ICA's IMPRESSION: Less than 50% stenosis of the bilateral carotid bifurcations. Criteria for Assigning % of Stenosis / Diameter reduction (Estimation based on the indirect measurements of the internal carotid artery velocities (ICA PSV). 1. Normal (no stenosis)=ICA PSV < 125 cm/s: ratio < 2.0: ICA EDV<40 cm/s. 2. Less than 50% stenosis=ICA PSV < 125 cm/s: ratio < 2.0: ICA EDV<40 cm/s. 3. 50 to 69% stenosis=ICA PSV of 125 to 230 cm/s: ration 2.0 ? 4.0: ICA EDV 40-100 cm/s. 4. Greater than 70% stenosis to near occlusion= ICA PSV > 230 cm/s: ratio > 4.0: ICA EDV > 100 cm/s. 5. Near occlusion= ICA PSV velocities may be low or undetectable: variable ratio and ICA EDV. 6. Total occlusion=unable to detect flow.
--- NOTE | 2023-09-23 14:55 | PN ---
PROGRESS NOTE DATE OF SERVICE: 09/23/2023 SUBJECTIVE: This 77-year-old gentleman admitted with weakness and gait dysfunction, also had significant large paraesophageal hiatal hernia. Surgery is planned on Tuesday by Dr. Jaramillo. The patient is confused. OBJECTIVE: VITAL SIGNS: Pulse is 59, blood pressure 90/50, respirations 16. CHEST: Clear to auscultation. CARDIOVASCULAR: S1, S2. ABDOMEN: Soft, nontender. NERVOUS SYSTEM: Nonfocal. LABORATORY DATA: Reviewed. ASSESSMENT: 1. Large paraesophageal hiatal hernia involving the anterior stomach with left lower chest. 2. Severe weakness and gait dysfunction, possibly parkinsonian acute exacerbation. 3. Diffuse weight loss and malnutrition. 4. Anemia, normocytic. 5. Depression. 6. Remote history of nicotine dependence. RECOMMENDATIONS AND DISCUSSION: Continue current medications, continue symptomatic treatment. Otherwise closely follow with Surgery. Possible surgery on Tuesday. I will recommend repeat labs and further recommendations to follow. MMODL / IJN: [id number] /
--- NOTE | 2023-09-23 14:58 | P.PN ---
Subjective Progress Note Date: 09/23/23 patient still. Patient has a large paraesophageal hiatal hernia. We will plan for repair on Tuesday. Objective - Vital Signs Vital signs: Vital Signs Temp 97.9 F 09/23/23 14:30 Pulse 63 09/23/23 14:30 Resp 16 09/23/23 14:30 BP 103/61 09/23/23 14:30 Pulse Ox 96 09/23/23 14:30 FiO2 Intake & Output 09/22/23 09/23/23 09/23/23 18:59 06:59 18:59 Intake Total 466 118 Output Total 1050 575 Balance -584 -575 118 Weight 68.039 kg Intake: Oral 466 118 Output: Urine 1050 575 Other: Voiding Method Bedside Commode Bedside Commode Bedside Commode Diaper Diaper Diaper Incontinent Incontinent Incontinent External Catheter External Catheter External Catheter # Voids 2 # Bowel Movements 1 - Labs CBC & Chem 7: 09/23/23 03:43 09/23/23 03:43 Labs: Abnormal Lab Results - Last 24 Hours (Table) 09/23/23 09/23/23 Range/Units 03:43 03:43 RBC 3.66 L (4.40-5.60) X 10*6/uL Hgb 12.0 L (13.0-17.0) g/dL Hct 36.5 L (39.6-50.0) % MCV 99.7 H (80.0-97.0) FL MCH 32.8 H (27.0-32.0) pg BUN 27.9 H (9.0-27.0) mg/dL Est GFR (CKD-EPI) 56 L (>=60) BUN/Creatinine Ratio 21.46 H (12.00-20.00) Ratio
[2023-09-23 18:29] LABS: Chol/HDL Ratio 3.87 Ratio; LDL Cholesterol,Calculated 107.4 mg/dL (0.0-131.0)
[2023-09-24] MEDS ORDERED: HYDROmorphone 0.5 MG/0.5 ML SYRINGE IVP PRN (07:12)
[2023-09-24 09:19] LABS: Basophils # (A) 0.05 X 10*3/uL (0.00-0.10); Basophils % (A) 0.9 %; Eosinophils # (A) 0.14 X 10*3/uL (0.04-0.35); Eosinophils % (A) 2.5 %; HCT 36.6 % (39.6-50.0); HGB 12.3 g/dL (13.0-17.0); Lymphocytes # (A) 0.92 X 10*3/uL (0.90-5.00); Lymphocytes % (A) 16.3 %; MCH 33.3 pg (27.0-32.0); MCHC 33.6 g/dL (32.0-37.0); MCV 99.2 FL (80.0-97.0); Mean Platelet Volume 11.8 FL (9.5-12.2); Monocytes # (A) 0.68 X 10*3/uL (0.20-1.00); Monocytes % (A) 12.1 %; NRBC Per 100 WBC 0 X 10*3/uL (0.00-0.01); Neutrophils # (A) 3.82 X 10*3/uL (1.80-7.70); Neutrophils % (A) 67.7 %; Platelet Count 188 X 10*3/uL (140-440); RBC 3.69 X 10*6/uL (4.40-5.60); WBC 5.64 X 10*3/uL (4.50-10.00)
[2023-09-24 09:41] LABS: BUN/Creat Ratio 27.36 Ratio (12.00-20.00); Blood Urea Nitrogen 30.1 mg/dL (9.0-27.0); Calcium 8.8 mg/dL (8.7-10.3); Carbon Dioxide 23.6 mmol/L (21.6-31.8); Chloride 109 mmol/L (96-109); Glucose 99 mg/dL (70-110); Potassium 4.2 mmol/L (3.5-5.5); Sodium 142 mmol/L (135-145)
[2023-09-24] MEDS: LACTATED RINGERS 1,000 ML IV SCH (10:29)
[2023-09-24] MEDS: ONDANSETRON 4 MG/2 ML VIAL IVP ONE (10:29)
--- NOTE | 2023-09-24 11:12 | P.PN ---
Subjective Progress Note Date: 09/23/23 Patient was seen for a follow-up. Patient is laying comfortably in the bed. A sitter is also present. Patient is stressed because of need for upcoming abdominal surgery for large pad a esophageal hernia. 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 Patient denies any history of clinical stroke. He denies any history of concussions or any accidents. Objective - Vital Signs Vital signs: Vital Signs Temp 97.9 F 09/23/23 14:30 Pulse 63 09/23/23 14:30 Resp 16 09/23/23 14:30 BP 103/61 09/23/23 14:30 Pulse Ox 96 09/23/23 14:30 FiO2 Intake & Output 09/22/23 09/23/23 09/23/23 18:59 06:59 18:59 Intake Total 466 118 Output Total 1050 575 Balance -584 -575 118 Weight 68.039 kg Intake: Oral 466 118 Output: Urine 1050 575 Other: Voiding Method Bedside Commode Bedside Commode Bedside Commode Diaper Diaper Diaper Incontinent Incontinent Incontinent External Catheter External Catheter External Catheter # Voids 2 # Bowel Movements 1 - Exam Examination is essentially unchanged. - Labs CBC & Chem 7: 09/24/23 03:53 09/24/23 03:53 Labs: Abnormal Lab Results - Last 24 Hours (Table) 09/23/23 09/23/23 Range/Units 03:43 03:43 RBC 3.66 L (4.40-5.60) X 10*6/uL Hgb 12.0 L (13.0-17.0) g/dL Hct 36.5 L (39.6-50.0) % MCV 99.7 H (80.0-97.0) FL MCH 32.8 H (27.0-32.0) pg BUN 27.9 H (9.0-27.0) mg/dL Est GFR (CKD-EPI) 56 L (>=60) BUN/Creatinine Ratio 21.46 H (12.00-20.00) Ratio Assessment and Plan Assessment: * Possible Parkinson's disease. Patient has some tremors at rest, along with postural and intention tremors as well. His Parkinson's is fairly well- controlled. He does not appear bradykinetic, and the tone of muscles is normal. This could be related to optimal control of Parkinson's disease. * Abnormal CT head, rule out NPH. Evidence of previous CVA. * Large paraesophageal hiatal hernia, involving the entire stomach within the left lower chest * Ex tobacco use Plan: * Patient's Parkinson's is fairly well-controlled. Patient will continue Sinemet ER 50/200, 1 tablet 3 times daily, and Mirapex 0.25 mg twice daily. * I would recommend to discontinue Zyprexa, as it can produce drug-induced Parkinson's. * TSH is normal. Ammonia <9 * CT head revealed mild normal pressure hydrocephalus. Recommend patient follow-up with his neurologist, or perhaps a neurosurgeon as an outpatient. CT head also revealed evidence of old CVA. Patient denies any history of clinical stroke. * Carotid Doppler revealed less than 50% stenosis of bilateral carotid bifurcations. Antegrade flow in both vertebral arteries. * 2-D echo 09/20/2023 revealed LVEF 60-65%. Mildly increased septal wall thickness. No obvious regional wall motion abnormality. Moderate left atrial dilation. Myxomatous mitral valve. Mitral valve thickened. Moderate aortic stenosis. * Hemoglobin A1c 5.1 * Lipid panel with cholesterol 167, LDL 107, AST 43 triglycerides 82. * Suggest starting aspirin 81 mg and Lipitor 20 mg, if no medical contraindications. * Patient possibly undergoing surgery for large paraesophageal hernia on 09/26/2023. * Neurologically clear. Recommend patient follow-up with his neurologist outpatient in 1-2 weeks after discharge.
--- NOTE | 2023-09-24 22:49 | P.PN ---
Subjective Patient seen and evaluated at bedside. Appears to be somewhat pleasantly confused. Denies abdominal pain, difficulty breathing or swallowing. Objective - Vital Signs Vital signs: Vital Signs Temp 98 F 09/24/23 20:00 Pulse 63 09/24/23 20:00 Resp 18 09/24/23 20:00 BP 99/57 09/24/23 20:00 Pulse Ox 97 09/24/23 20:00 FiO2 Intake & Output 09/24/23 09/24/23 09/25/23 06:59 18:59 06:59 Intake Total 472 Output Total 400 397 Balance -400 75 Intake: Oral 472 Output: Urine 400 200 Post Void Residual 197 Other: Voiding Method Bedside Commode Urinal Diaper Incontinent # Voids 2 3 # Bowel Movements 1 - Exam gen; nad cv: rrr pul: non labored abd: soft, non tender, non distended - Labs CBC & Chem 7: 09/24/23 03:53 09/24/23 03:53 Labs: Abnormal Lab Results - Last 24 Hours (Table) 09/24/23 09/24/23 Range/Units 03:53 03:53 RBC 3.69 L (4.40-5.60) X 10*6/uL Hgb 12.3 L (13.0-17.0) g/dL Hct 36.6 L (39.6-50.0) % MCV 99.2 H (80.0-97.0) FL MCH 33.3 H (27.0-32.0) pg BUN 30.1 H (9.0-27.0) mg/dL BUN/Creatinine Ratio 27.36 H (12.00-20.00) Ratio Assessment and Plan Assessment: 77 yo male w/ large paraesophageal hernia -continue npo for now -surgery on tuesday Time with Patient: Less than 30
--- NOTE | 2023-09-25 01:46 | PN ---
PROGRESS NOTE DATE OF SERVICE: 09/24/2023 SUBJECTIVE: This is a 77-year-old gentleman with multiple medical issues, had large paraesophageal hiatal hernia, scheduled for surgery on Tuesday. No chest pain, no palpitation. OBJECTIVE: VITAL SIGNS: Pulse is 64, blood pressure 196/60, respirations 13. CHEST: Clear to auscultation. CARDIOVASCULAR: S1, S2. ABDOMEN: Soft. NERVOUS SYSTEM: Diffusely weak. LABORATORY DATA: Hemoglobin 12.34. ASSESSMENT: 1. Large paraesophageal hernia, hiatal hernia involving the anterior stomach of the left lower chest. 2. Severe weakness and gait dysfunction, possibly Parkinson's acute exacerbation. 3. Diffuse weight loss and malnutrition. 4. Anemia, normocytic. 5. Multiple complex medical issues. RECOMMENDATIONS: Recommended to continue current management, continue symptomatic and treatment. Repeat labs. Closely follow with surgery. Continue with Sinemet. Further recommendations to follow. MMODL / IJN: [id number] /
[2023-09-25 09:34] LABS: Basophils # (A) 0.06 X 10*3/uL (0.00-0.10); Basophils % (A) 1.4 %; Eosinophils # (A) 0.14 X 10*3/uL (0.04-0.35); Eosinophils % (A) 3.2 %; HCT 36.8 % (39.6-50.0); HGB 12.2 g/dL (13.0-17.0); Lymphocytes # (A) 0.89 X 10*3/uL (0.90-5.00); Lymphocytes % (A) 20.4 %; MCH 33.1 pg (27.0-32.0); MCHC 33.2 g/dL (32.0-37.0); MCV 99.7 FL (80.0-97.0); Mean Platelet Volume 11.4 FL (9.5-12.2); Monocytes # (A) 0.59 X 10*3/uL (0.20-1.00); Monocytes % (A) 13.5 %; NRBC Per 100 WBC 0 X 10*3/uL (0.00-0.01); Neutrophils # (A) 2.65 X 10*3/uL (1.80-7.70); Neutrophils % (A) 60.8 %; Platelet Count 172 X 10*3/uL (140-440); RBC 3.69 X 10*6/uL (4.40-5.60); WBC 4.36 X 10*3/uL (4.50-10.00)
--- NOTE | 2023-09-25 09:45 | P.PN ---
Subjective Progress Note Date: 09/25/23 Principal diagnosis: Hiatal hernia Patient doing well today. Denies pain. No nausea or vomiting currently. Somewhat agitated at times. Objective - Vital Signs Vital signs: Vital Signs Temp 97.4 F L 09/25/23 07:27 Pulse 59 L 09/25/23 07:27 Resp 14 09/25/23 07:27 BP 104/60 09/25/23 07:27 Pulse Ox 98 09/25/23 07:27 FiO2 Intake & Output 09/24/23 09/25/23 09/25/23 18:59 06:59 18:59 Intake Total 472 118 Output Total 397 Balance 75 118 Intake: Oral 472 118 Output: Urine 200 Post Void Residual 197 Other: Voiding Method Toilet Diaper Incontinent # Voids 3 2 1 # Bowel Movements 1 1 - Exam Abdomen: Soft, nontender, nondistended - Labs CBC & Chem 7: 09/25/23 05:30 09/24/23 03:53 Labs: Abnormal Lab Results - Last 24 Hours (Table) 09/25/23 Range/Units 05:30 WBC 4.36 L (4.50-10.00) X 10*3/uL RBC 3.69 L (4.40-5.60) X 10*6/uL Hgb 12.2 L (13.0-17.0) g/dL Hct 36.8 L (39.6-50.0) % MCV 99.7 H (80.0-97.0) FL MCH 33.1 H (27.0-32.0) pg Lymphocytes # 0.89 L (0.90-5.00) X 10*3/uL Assessment and Plan (1) Hiatal hernia Narrative/Plan: 77-year-old male with large hiatal hernia. Patient is scheduled for operative repair tomorrow. N.p.o. after midnight. Current Visit: Yes Status: Acute Code(s): K44.9 - DIAPHRAGMATIC HERNIA WITHOUT OBSTRUCTION OR GANGRENE SNOMED Code(s): 79893539
[2023-09-25 10:09] LABS: BUN/Creat Ratio 23.08 Ratio (12.00-20.00); Blood Urea Nitrogen 27.7 mg/dL (9.0-27.0); Calcium 8.8 mg/dL (8.7-10.3); Carbon Dioxide 24.1 mmol/L (21.6-31.8); Chloride 109 mmol/L (96-109); Glucose 97 mg/dL (70-110); Potassium 4.2 mmol/L (3.5-5.5); Sodium 140 mmol/L (135-145)
--- NOTE | 2023-09-25 21:57 | PN ---
PROGRESS NOTE DATE OF SERVICE: 09/25/2023 SUBJECTIVE: This 77-year-old gentleman was admitted with large paraesophageal hernia, is scheduled for surgery. No chest pain, no palpitations, no fever. OBJECTIVE: VITAL SIGNS: Pulse is 59, blood pressure 104/60, respirations 14. CHEST: Clear to auscultation. CARDIOVASCULAR: S1, S2. ABDOMEN: Soft. LABORATORY DATA: Hemoglobin 12.2. ASSESSMENT: 1. Large paraesophageal hernia, hiatal hernia involving the anterior stomach going in the left lower chest. 2. Severe weakness and gait dysfunction, possibly Parkinson's acute exacerbation. 3. Diffuse weight loss and malnutrition. 4. Anemia, normocytic. 5. Multiple complex medical issues. RECOMMENDATIONS: Recommended to continue current management, continue symptomatic treatment. Continue surgical evaluation, PT OT evaluation, possible ECF rehab. Guarded prognosis. Further recommendations to follow. Repeat labs. CHUCKIE / NISA: [id number] /
--- NOTE | 2023-09-26 01:56 | P.PN ---
Subjective Progress Note Date: 09/25/23 Patient was seen for a follow-up. Patient is laying comfortably in the bed. A sitter is also present. Patient states that he is feeling "mentally sick". He denies any headache, no chest pain, no abdominal pain. He wants to go for surgery for paraesophageal hernia. He says that he is "tired of living". "It is a "road so long". He admits to feeling depression. 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 Patient denies any history of clinical stroke. He denies any history of concussions or any accidents. Objective - Vital Signs Vital signs: Vital Signs Temp 98.0 F 09/25/23 21:59 Pulse 57 L 09/25/23 21:59 Resp 17 09/25/23 21:59 BP 110/67 09/25/23 21:59 Pulse Ox 97 09/25/23 21:59 FiO2 Intake & Output 09/25/23 09/25/23 09/26/23 06:59 18:59 06:59 Intake Total 236 Output Total 300 Balance -64 Intake: Oral 236 Output: Urine 300 Other: Voiding Method Toilet Toilet Toilet Diaper Diaper Diaper Incontinent Incontinent Incontinent # Voids 2 1 # Bowel Movements 1 - Exam Examination is essentially unchanged. - Labs CBC & Chem 7: 09/25/23 05:30 09/25/23 05:30 Labs: Abnormal Lab Results - Last 24 Hours (Table) 09/25/23 09/25/23 Range/Units 05:30 05:30 WBC 4.36 L (4.50-10.00) X 10*3/uL RBC 3.69 L (4.40-5.60) X 10*6/uL Hgb 12.2 L (13.0-17.0) g/dL Hct 36.8 L (39.6-50.0) % MCV 99.7 H (80.0-97.0) FL MCH 33.1 H (27.0-32.0) pg Lymphocytes # 0.89 L (0.90-5.00) X 10*3/uL BUN 27.7 H (9.0-27.0) mg/dL BUN/Creatinine Ratio 23.08 H (12.00-20.00) Ratio Assessment and Plan Assessment: * Possible Parkinson's disease. Patient has some tremors at rest, along with postural and intention tremors as well. His Parkinson's is fairly well- controlled. He does not appear bradykinetic, and the tone of muscles is normal. * Abnormal CT head, rule out NPH. Evidence of previous CVA. * Large paraesophageal hiatal hernia, involving the entire stomach within the le ft lower chest * Ex tobacco use * Depression Plan: * Patient's Parkinson's is fairly well-controlled. Patient will continue Sinemet ER 50/200, 1 tablet 3 times daily, and Mirapex 0.25 mg twice daily. * I would recommend to discontinue Zyprexa, as it can produce drug-induced Parkinson's. * TSH is normal. Ammonia <9 * CT head revealed mild normal pressure hydrocephalus. Recommend patient follow-up with his neurologist, or perhaps a neurosurgeon as an outpatient. CT head also revealed evidence of old CVA. Patient denies any history of clinical stroke. * Carotid Doppler revealed less than 50% stenosis of bilateral carotid bifurcations. Antegrade flow in both vertebral arteries. * 2-D echo 09/20/2023 revealed LVEF 60-65%. Mildly increased septal wall thickness. No obvious regional wall motion abnormality. Moderate left atrial dilation. Myxomatous mitral valve. Mitral valve thickened. Moderate aortic stenosis. * Hemoglobin A1c 5.1 * Lipid panel with cholesterol 167, LDL 107, AST 43 triglycerides 82. * Suggest starting aspirin 81 mg and Lipitor 20 mg, if no medical contraindications. * Patient undergoing surgery for large paraesophageal hernia on 09/26/2023. * Patient admits to feeling depressed. Suggest follow-up with psychiatry. * Recommend patient follow up with neurologist in 1-2 weeks after discharge. * Dr. David Garduno to resume neurology service in the morning.
[2023-09-26 08:44] LABS: Basophils # (A) 0.06 X 10*3/uL (0.00-0.10); Basophils % (A) 1.4 %; Eosinophils # (A) 0.18 X 10*3/uL (0.04-0.35); Eosinophils % (A) 4.1 %; HCT 36.9 % (39.6-50.0); HGB 12.3 g/dL (13.0-17.0); Lymphocytes % (A) 25.3 %; MCH 32.6 pg (27.0-32.0); MCHC 33.3 g/dL (32.0-37.0); MCV 97.9 FL (80.0-97.0); Mean Platelet Volume 11.5 FL (9.5-12.2); Monocytes % (A) 11.5 %; NRBC Per 100 WBC 0 X 10*3/uL (0.00-0.01); Neutrophils # (A) 2.48 X 10*3/uL (1.80-7.70); Neutrophils % (A) 57.2 %; Platelet Count 183 X 10*3/uL (140-440); RBC 3.77 X 10*6/uL (4.40-5.60); WBC 4.34 X 10*3/uL (4.50-10.00)
[2023-09-26 09:47] LABS: Blood Urea Nitrogen 22.5 mg/dL (9.0-27.0); Carbon Dioxide 21.4 mmol/L (21.6-31.8); Chloride 108 mmol/L (96-109); Glucose 101 mg/dL (70-110); Potassium 4.2 mmol/L (3.5-5.5); Sodium 140 mmol/L (135-145)
--- NOTE | 2023-09-26 13:00 | P.PN ---
Subjective Progress Note Date: 09/26/23 CHIEF COMPLAINT: Large paraesophageal hiatal hernia HISTORY OF PRESENT ILLNESS: Patient denies any abdominal pain. He denies any nausea or vomiting. Denies any acid reflux. Patient somewhat agitated at times. Patient currently stating that he does not want any surgery done. PHYSICAL EXAM: VITAL SIGNS: Reviewed. GENERAL: no acute distress. ABDOMEN: Soft. Nondistended. Nontender. NEUROLOGIC: awake and alert ASSESSMENT: 1. Large paraesophageal hiatal hernia 2. Organoaxial volvulus PLAN: -Patient can be discharged from surgical standpoint with outpatient follow-up -Dr. Jaramillo does recommend a large hiatal hernia repair outpatient given patient's volvulus Physician Occupational Health Rn note has been reviewed by physician. Signing provider agrees with the documented findings, assessment, and plan of care. Objective - Vital Signs Vital signs: Vital Signs Temp 97.5 F L 09/26/23 07:00 Pulse 54 L 09/26/23 07:00 Resp 16 09/26/23 07:00 BP 111/67 09/26/23 07:00 Pulse Ox 98 09/26/23 07:00 FiO2 Intake & Output 09/25/23 09/26/23 09/26/23 18:59 06:59 18:59 Intake Total 236 118 Output Total 300 Balance -64 118 Intake: Oral 236 118 Output: Urine 300 Other: Voiding Method Toilet Toilet Diaper Diaper Incontinent Incontinent # Voids 1 1 # Bowel Movements 1 - Labs CBC & Chem 7: 09/26/23 03:20 09/26/23 03:20 Labs: Abnormal Lab Results - Last 24 Hours (Table) 09/26/23 09/26/23 Range/Units 03:20 03:20 WBC 4.34 L (4.50-10.00) X 10*3/uL RBC 3.77 L (4.40-5.60) X 10*6/uL Hgb 12.3 L (13.0-17.0) g/dL Hct 36.9 L (39.6-50.0) % MCV 97.9 H (80.0-97.0) FL MCH 32.6 H (27.0-32.0) pg Carbon Dioxide 21.4 L (21.6-31.8) mmol/L BUN/Creatinine Ratio 22.50 H (12.00-20.00) Ratio
[2023-09-26] MEDS: FLUoxetine HCL 20 MG CAP PO SCH (13:40)
[2023-09-26 14:30] VITALS: BP 107/65; PULSE 59; RESP 17; TEMP 98.1
[2023-09-26] MEDS ORDERED: OLANZapine 5 MG TAB PO SCH (20:00)
[2023-09-26] MEDS ORDERED: PANTOPRAZOLE 40 MG/10 ML VIAL IVP SCH (21:00)
--- NOTE | 2023-09-28 09:52 | P.DS ---
Providers Date of admission: 09/22/23 07:44 Expected date of discharge: 09/26/23 Attending physician: Laron Reid Consults: 09/20/23 22:48 Consult Physician Urgent Consulting Provider: Ebenezer Lamar Consult Reason/Comments: depression Do you want consulting provider notified?: Yes 09/21/23 13:19 Consult Physician Routine Consulting Provider: Oswald Ceja Consult Reason/Comments: parkinsons Do you want consulting provider notified?: Yes 09/22/23 10:36 Consult Physician Urgent Consulting Provider: Gera Jaramillo Consult Reason/Comments: abnormal ct abd Do you want consulting provider notified?: Yes Primary care physician: Quoc Edwards [facility] Course: Final diagnosis Large paraesophageal hernia, hiatal hernia involving the anterior stomach going into the left lower chest Severe weakness and gait dysfunction, likely Parkinson's acute exacerbation Diffuse weight loss and malnutrition likely secondary to assessment #1 History of anemia, normocytic Moderate protein calorie malnutrition with a BMI of 20.3 gi prophylaxis dvt prophylaxis no code Discharge disposition Patient is being discharged in a stable condition with guarded prognosis to [facility] where he resides. Patient will follow-up with Dr. Edwards in the outpatient setting upon discharge. Patient is to continue with current medications and outpatient follow-up with general surgery as scheduled. Total time taken is greater than 35 minutes. Hospital course This is a 77-year-old male who was recently admitted with abdominal pain and difficulty eating and evaluated by general surgery. Patient had imaging done including CT of the abdomen which showed a large paraesophageal hernia initially scheduled for surgery. After discussion with family patient is no code and did not want any further surgical intervention. Patient does not want to have surgery and this was confirmed with family. Patient to follow-up with general surgery outpatient. Patient will be returning to [facility] where he resides and recommend outpatient follow-up with primary care provider this week. Patient has been cleared by consultations for discharge. Please refer to other consultation notes for further HPI. Currently no reports of chest pain, shortness of breath, or palpitations. Patient is afebrile. No reports of nausea or vomiting and patient is tolerating diet. Patient will be going to [facility] where he resides today. Guarded prognosis and high risk for readmissions Physical exam: Gen: This is a 77-year-old male who is awake, alert and oriented x 2, baseline, well-developed, ill-appearing, elderly appearing, anxious HEENT: Head is atraumatic, normocephalic. Pupils equal, round. Sclerae is anicteric. NECK: Supple. No JVD. No lymphadenopathy. No thyromegaly. LUNGS: Diminished breath sounds bilaterally otherwise clear to auscultation. No wheezes or rhonchi. No intercostal retractions. HEART: S1, S2 are muffled ABDOMEN: Soft. Thin bowel sounds are present. No masses. No tenderness. EXTREMITIES: No pedal edema. No calf tenderness. NEUROLOGICAL: Patient is awake, alert and oriented x3. Cranial nerves 2 through 12 are grossly intact. Please refer to medication reconciliation sheet for a list of medications. The impression and plan of care has been dictated by Lauren Meza, Nurse Practitioner as directed. Dr. Franklin MD I have performed a history and examination and MDM of this patient, discussed the same with the dictator, and agree with the dictator's assessment and plan as written ,documented as a scribe. Based on total visit time, I have performed more than 50% of the visit. Patient Condition at Discharge: Fair Plan - Discharge Summary Discharge Rx Participant: No New Discharge Prescriptions: New Multivitamins, Thera [Multivitamin (formulary)] 1 each PO DAILY@1200 #30 tab Folic Acid 1 mg PO DAILY@1200 #30 tab Acetaminophen Tab [Tylenol] 650 mg PO Q6HR PRN tab PRN Reason: Mild Pain Or Fever > 100.5 Thiamine [Vitamin B-1] 100 mg PO BID-W/MEALS #60 tab Continue Pramipexole [Mirapex] 0.25 mg PO BID@799,1999 FLUoxetine HCL [PROzac] 20 mg PO DAILY@0800 Carbidopa-Levodopa ER 50-200Mg [Sinemet CR 50-200 mg] 1 tab PO TID@0800,1300,1800 OLANZapine [ZyPREXA] 5 mg PO HS@1999 Discharge Medication List Carbidopa-Levodopa ER 50-200Mg [Sinemet CR 50-200 mg] 1 tab PO TID@0800,1300,1800 08/21/23 [History] Pramipexole [Mirapex] 0.25 mg PO BID@0800,199908/21/23 [History] FLUoxetine HCL [PROzac] 20 mg PO DAILY@0800 09/21/23 [History] OLANZapine [ZyPREXA] 5 mg PO HS@199909/21/23 [History] Acetaminophen Tab [Tylenol] 650 mg PO Q6HR PRN tab 09/26/23 [Rx] Folic Acid 1 mg PO DAILY@1200 #30 tab 09/26/23 [Rx] Multivitamins, Thera [Multivitamin (formulary)] 1 each PO DAILY@1200 #30 tab 09/26/23 [Rx] Thiamine [Vitamin B-1] 100 mg PO BID-W/MEALS #60 tab 09/26/23 [Rx] Follow up Appointment(s)/Referral(s): Quoc Edwards DO [Primary Care Provider] - 1-2 days Gera Jaramillo MD [STAFF PHYSICIAN] - 10/11/23 1:50 pm Activity/Diet/Wound Care/Special Instructions: Okay to return to [facility] Continue current diet Follow-up with general surgery outpatient Follow-up with psychiatry/[facility] outpatient Discharge Disposition: HOME SELF-CARE
== END 2023-09-26 17:15 | disposition home or self-care (01) | DRG 57 ==
LOC: EC 18:23 → 6NMEDSUR 22:50 → OBSVTOIN 09-22 07:44
PROVIDERS: ADMIT Hospitalist; ATTEND Hospitalist
DX: G20.A1 Parkinson's disease without dyskinesia, without mention of fluctuations (principal); E44.0 Moderate protein-calorie malnutrition; G91.9 Hydrocephalus, unspecified; Z68.20 Body mass index [BMI] 20.0-20.9, adult; F32.4 Major depressive disorder, single episode, in partial remission; K44.9 Diaphragmatic hernia without obstruction or gangrene; D64.9 Anemia, unspecified; Z66 Do not resuscitate; K31.89 Other diseases of stomach and duodenum; J43.9 Emphysema, unspecified; J32.0 Chronic maxillary sinusitis; G93.89 Other specified disorders of brain; F41.9 Anxiety disorder, unspecified; Z87.891 Personal history of nicotine dependence; Z79.899 Other long term (current) drug therapy; Z71.3 Dietary counseling and surveillance; Z86.73 Personal history of transient ischemic attack (TIA), and cerebral infarction without residual deficits; Z63.4 Disappearance and death of family member; Z91.81 History of falling
CPT/HCPCS: 36415; 70450; 71046; 71250; 74176; 80048; 80053; 80061; 81003; 82140; 83036; 83605; 83735; 83880; 84443; 84481; 84484; 85025; 85610; 85652; 85730; 86140; 86850; 86870; 86880; 86900; 86901; 87636; 93005; 93306; 93880; 96361; 96374; 99285

== ENCOUNTER 2023-10-12 01:32 | Emergency (ER) | payer MEDICARE ==
[2023-10-12 01:56] VITALS: RESP 16; TEMP 97.6
--- NOTE | 2023-10-12 02:01 | ED ---
General Adult HPI - General Chief complaint: Psychiatric Symptoms Stated complaint: Mental health Time Seen by Provider: 10/12/23 01:50 Source: patient, EMS, RN notes reviewed, old records reviewed Mode of arrival: EMS - History of Present Illness Initial comments: Patient is a 77-year-old male who presents emergency department for suicidal ideations. Is having thoughts of generalized feelings of not wanting to be here anymore. Denies any specific plans. States that he recently lost his within the last year has been having issues with depression and suicidal ideation since then. Has been seen before here in our department for similar complaints. He has a history of Parkinson's. Endorses a dry cough but no other complaints. Presents for further evaluation. Denies homicidal ideations, times complaints. Denies any hallucinations. - Related Data Home Medications Medication Instructions Recorded Confirmed Carbidopa-Levodopa ER 50-200Mg 1 tab PO TID@0800,1300,1800 08/21/23 09/21/23 [Sinemet CR 50-200 mg] Pramipexole [Mirapex] 0.25 mg PO BID@0800,199908/21/23 09/21/23 FLUoxetine HCL [PROzac] 20 mg PO DAILY@0800 09/21/23 09/21/23 OLANZapine [ZyPREXA] 5 mg PO HS@199909/21/23 09/21/23 Previous Rx's Medication Instructions Recorded Acetaminophen Tab [Tylenol] 650 mg PO Q6HR PRN tab 09/26/23 Folic Acid 1 mg PO DAILY@1200 #30 tab 09/26/23 Multivitamins, Thera [Multivitamin 1 each PO DAILY@1200 #30 tab 09/26/23 (formulary)] Thiamine [Vitamin B-1] 100 mg PO BID-W/MEALS #60 tab 09/26/23 Allergies Allergy/AdvReac Type Severity Reaction Status Date / Time No Known Allergies Allergy Verified 10/12/23 01:56 Review of Systems ROS Statement: Those systems with pertinent positive or pertinent negative responses have been documented in the HPI. Review of Systems: CONST: Denies fever EYES: Denies blurry vision ENT: Denies nasal congestion C/V: Denies Chest pain RESP: Denies shortness of breath GI: Denies abdominal pain : Denies dysuria SKIN: Denies rash. MSK: Denies joint pain. NEURO: Denies headache ROS Other: All systems not noted in ROS Statement are negative. Past Medical History Additional Past Medical History / Comment(s): parkinsons History of Any Multi-Drug Resistant Organisms: None Reported Past Surgical History: No Surgical Hx Reported Past Psychological History: No Psychological Hx Reported Smoking Status: Former smoker Past Alcohol Use History: None Reported Past Drug Use History: None Reported General Exam - General Exam Comments Initial Comments: General: Appears in no acute distress. HEAD: Normal with no signs of head trauma. EYES: PERRLA, EOMI, conjunctiva normal, no discharge. ENT: Hearing grossly intact, normal oropharynx. RESPIRATORY: Clear breath sounds bilaterally. No wheezes, rales, or rhonchi. C/V: Regular rate and rhythm. S1 and S2 auscultated, no edema, peripheral pulses 2+ and intact throughout ABD: Abd is soft, nontender, nondistended EXT: Normal range of motion, no obvious deformity SKIN: No rashes or lesions observed on exposed skin. NEURO: Alert and oriented x 4. Cranial nerves II-XII intact. No focal sensory or strength deficits. Course Vital Signs 10/12/23 01:47 Temperature 97.6 F Pulse Rate 64 Respiratory 16 Rate Blood Pressure 115/67 O2 Sat by Pulse 96 Oximetry Medical Decision Making - Medical Decision Making Was pt. sent in by a medical professional or institution ([facility], RESIDENTIAL TREATMENT STAFF, urgent care, hospital, or long-term...) When possible be specific @ -No Did you speak to anyone other than the patient for history (EMS, parent, family, police, friend...)? What history was obtained from this source @ -No Did you review nursing and triage notes (agree or disagree)? Why? @ -I reviewed and agree with nursing and triage notes Were old charts reviewed (outside hosp., previous admission, EMS record, old EKG, old radiological studies, urgent care reports/EKG's, long-term records)? Report findings @ -Old charts reviewed viewed which shows that patient was evaluated for similar complaints last month. Differential Diagnosis (chest pain, altered mental status, abdominal pain women, abdominal pain men, vaginal bleeding, weakness, fever, dyspnea, syncope, headache, dizziness, GI bleed, back pain, seizure, CVA, palpatations, mental health, musculoskeletal)? @ -Differential Mental Health Depression, anxiety, bipolar, psychosis, schizophrenia, borderline personality, situational depression, adjustment disorder, behavioral disorder, brain tumor, malingering, substance abuse, encephalopathy, medication reaction, dementia, h ypothyroidism, degenerative neurologic disorder, lupus.... This is not meant to be all-inclusive list EKG interpreted by me (3pts min.). @ -As above X-rays interpreted by me (1pt min.). @ -Chest x-ray reveals no obvious acute cardiopulmonary process. CT interpreted by me (1pt min.). @ -None done U/S interpreted by me (1pt. min.). @ -None done What testing was considered but not performed or refused? (CT, X-rays, U/S, labs)? Why? @ -None What meds were considered but not given or refused? Why? @ -None Did you discuss the management of the patient with other professionals (professionals i.e. , PA, RESIDENTIAL TREATMENT STAFF, lab, RT, psych nurse, social worker aide, linoleum tile layer, teacher, chief strategy officer, case operator)? Give summary @ -EPS notified of the consult. Was smoking cessation discussed for >3mins.? @ -No Was critical care preformed (if so, how long)? @ -No Were there social determinants of health that impacted care today? How? (Homelessness, low income, unemployed, alcoholism, drug addiction, transpor tation, low edu. Level, literacy, decrease access to med. care, half-way, rehab)? @ -No Was there de-escalation of care discussed even if they declined (Discuss DNR or withdrawal of care, Hospice)? DNR status @ -No What co-morbidities impacted this encounter? (DM, HTN, Smoking, COPD, CAD, Cancer, CVA, ARF, Chemo, Hep., AIDS, mental health diagnosis, sleep apnea, morbid obesity)? @ -None Was patient admitted / discharged? Hospital course, mention meds given and route, prescriptions, significant lab abnormalities, going to OR and other pertinent info. @ -Patient presents emergency department complaining of suicidal ideations. Sitter ordered. Suicide precautions ordered. Due to his age we will obtain basic labs as well as screening EKG. He is having a cough and Cepheid as well as chest x-ray will be obtained. Presents from nursing facility. Vital signs within acceptable limits. Patient was in agreement this plan. BAT is 0. EKG shows no signs of acute ischemia. Patient's laboratory studies are unremarkable. Chest x-ray shows no evidence of pneumonia. At this time, patient is medically cleared for evaluation by psychiatry. Disposition pending psychiatric evaluation. EPS notified of the consult. EPS Jayna evaluate the patient after discussion with the nursing facility as well as family, patient is cleared by psychiatry. Does not meet inpatient criteria. Patient be discharged home with safety plan. Undiagnosed new problem with uncertain prognosis? @ -No Drug Therapy requiring intensive monitoring for toxicity (Heparin, Nitro, Insulin, Cardizem)? @ -No Were any procedures done? @ -No Diagnosis/symptom? @ -Encounter for psychiatric evaluation Acute, or Chronic, or Acute on Chronic? @ -Acute Uncomplicated (without systemic symptoms) or Complicated (systemic symptoms)? @ -Uncomplicated Side effects of treatment? @ -None Exacerbation, Progression, or Severe Exacerbation] @ -No Poses a threat to life or bodily function? @ -Unlikely - Lab Data Result diagrams: 10/12/23 02:20 10/12/23 02:20 Lab Results 10/12/23 10/12/23 10/12/23 Range/Units 02:20 02:20 02:20 WBC 6.1 (3.8-10.6) k/uL RBC 3.86 L (4.30-5.90) m/uL Hgb 12.5 L (13.0-17.5) gm/dL Hct 38.7 L (39.0-53.0) % MCV 100.3 H (80.0-100.0) fL MCH 32.5 (25.0-35.0) pg MCHC 32.4 (31.0-37.0) g/dL RDW 12.9 (11.5-15.5) % Plt Count 197 (150-450) k/uL MPV 9.2 Neutrophils % 73 % Lymphocytes % 15 % Monocytes % 7 % Eosinophils % 2 % Basophils % 1 % Neutrophils # 4.5 (1.3-7.7) k/uL Lymphocytes # 0.9 L (1.0-4.8) k/uL Monocytes # 0.4 (0-1.0) k/uL Eosinophils # 0.1 (0-0.7) k/uL Basophils # 0.1 (0-0.2) k/uL Sodium 138 (137-145) mmol/L Potassium 4.3 (3.5-5.1) mmol/L Chloride 110 H (98-107) mmol/L Carbon Dioxide 22 (22-30) mmol/L Anion Gap 6 mmol/L BUN 38 H (9-20) mg/dL Creatinine 1.21 (0.66-1.25) mg/dL Est GFR (CKD-EPI)AfAm 66 (>60 ml/min/1.73 sqM) Est GFR (CKD-EPI)NonAf 57 (>60 ml/min/1.73 sqM) Glucose 110 H (74-99) mg/dL Calcium 9.6 (8.4-10.2) mg/dL Total Bilirubin 0.7 (0.2-1.3) mg/dL AST 24 (17-59) U/L ALT <6 (4-49) U/L Alkaline Phosphatase 104 (38-126) U/L Total Protein 6.0 L (6.3-8.2) g/dL Albumin 3.8 (3.5-5.0) g/dL Urine Color Urine Appearance (Clear) Urine pH (5.0-8.0) Ur Specific [place] (1.001-1.035) Urine Protein (Negative) Urine Glucose (UA) (Negative) Urine Ketones (Negative) Urine Blood (Negative) Urine Nitrite (Negative) Urine Bilirubin (Negative) Urine Urobilinogen (<2.0) mg/dL Ur Leukocyte Esterase (Negative) Urine RBC (0-5) /hpf Urine WBC (0-5) /hpf Urine WBC Clumps (None) /hpf Urine Bacteria (None) /hpf Hyaline Casts (0-2) /lpf Urine Mucus (None) /hpf Urine Opiates Screen (NotDetected) Ur Oxycodone Screen (NotDetected) Urine Methadone Screen (NotDetected) Ur Barbiturates Screen (NotDetected) U Tricyclic Antidepress (NotDetected) Ur Phencyclidine Scrn (NotDetected) Ur Amphetamines Screen (NotDetected) U Methamphetamines Scrn (NotDetected) U Benzodiazepines Scrn (NotDetected) Urine Cocaine Screen (NotDetected) U Marijuana (THC) Screen (NotDetected) Influenza Type A (PCR) Not Detected (Not Detectd) Influenza Type B (PCR) Not Detected (Not Detectd) RSV (PCR) Not Detected (Not Detectd) SARS-CoV-2 (PCR) Not Detected (Not Detectd) 10/12/23 Range/Units 03:10 WBC (3.8-10.6) k/uL RBC (4.30-5.90) m/uL Hgb (13.0-17.5) gm/dL Hct (39.0-53.0) % MCV (80.0-100.0) fL MCH (25.0-35.0) pg MCHC (31.0-37.0) g/dL RDW (11.5-15.5) % Plt Count (150-450) k/uL MPV Neutrophils % % Lymphocytes % % Monocytes % % Eosinophils % % Basophils % % Neutrophils # (1.3-7.7) k/uL Lymphocytes # (1.0-4.8) k/uL Monocytes # (0-1.0) k/uL Eosinophils # (0-0.7) k/uL Basophils # (0-0.2) k/uL Sodium (137-145) mmol/L Potassium (3.5-5.1) mmol/L Chloride (98-107) mmol/L Carbon Dioxide (22-30) mmol/L Anion Gap mmol/L BUN (9-20) mg/dL Creatinine (0.66-1.25) mg/dL Est GFR (CKD-EPI)AfAm (>60 ml/min/1.73 sqM) Est GFR (CKD-EPI)NonAf (>60 ml/min/1.73 sqM) Glucose (74-99) mg/dL Calcium (8.4-10.2) mg/dL Total Bilirubin (0.2-1.3) mg/dL AST (17-59) U/L ALT (4-49) U/L Alkaline Phosphatase (38-126) U/L Total Protein (6.3-8.2) g/dL Albumin (3.5-5.0) g/dL Urine Color Light Yellow Urine Appearance Clear (Clear) Urine pH 5.5 (5.0-8.0) Ur Specific [place] 1.022 (1.001-1.035) Urine Protein Negative (Negative) Urine Glucose (UA) Negative (Negative) Urine Ketones Negative (Negative) Urine Blood Negative (Negative) Urine Nitrite Negative (Negative) Urine Bilirubin Negative (Negative) Urine Urobilinogen <2.0 (<2.0) mg/dL Ur Leukocyte Esterase Trace H (Negative) Urine RBC <1 (0-5) /hpf Urine WBC 9 H (0-5) /hpf Urine WBC Clumps Rare H (None) /hpf Urine Bacteria Rare H (None) /hpf Hyaline Casts 1 (0-2) /lpf Urine Mucus Rare H (None) /hpf Urine Opiates Screen Not Detected (NotDetected) Ur Oxycodone Screen Not Detected (NotDetected) Urine Methadone Screen Not Detected (NotDetected) Ur Barbiturates Screen Not Detected (NotDetected) U Tricyclic Antidepress Not Detected (NotDetected) Ur Phencyclidine Scrn Not Detected (NotDetected) Ur Amphetamines Screen Not Detected (NotDetected) U Methamphetamines Scrn Not Detected (NotDetected) U Benzodiazepines Scrn Not Detected (NotDetected) Urine Cocaine Screen Not Detected (NotDetected) U Marijuana (THC) Screen Not Detected (NotDetected) Influenza Type A (PCR) (Not Detectd) Influenza Type B (PCR) (Not Detectd) RSV (PCR) (Not Detectd) SARS-CoV-2 (PCR) (Not Detectd) - EKG Data -: EKG Interpreted by Me EKG Comments: 12-lead Electrocardiogram Interpretation Note EKG was reviewed and interpreted by myself. 12-lead ECG performed at 0155 is interpreted by me as revealing sinus bradycardia with a right bundle branch block at a rate of 59 beats per minute. [place] is normal. [place] interval is 202 ms, QRS duration is 125 ms, QTc is 452 ms.. There were no ST or T wave abnormalities to suggest myocardial ischemia or injury. R wave progression across the precordium was satisfactory. By my interpretation this EKG is non- diagnostic for acute ischemia. When compared with EKG from August 2023, no significant change. Disposition Clinical Impression: Encounter for psychiatric assessment Disposition: HOME SELF-CARE Condition: Good Additional Instructions: follow safety plan Is patient prescribed a controlled substance at d/c from ED?: No Referrals: None,Stated [Primary Care Provider] - 1-2 days Time of Disposition: 06:19
[2023-10-12 02:41] LABS: Basophils # (A) 0.1 k/uL (0-0.2); Basophils % (A) 1 %; Eosinophils # (A) 0.1 k/uL (0-0.7); Eosinophils % (A) 2 %; HCT 38.7 % (39.0-53.0); HGB 12.5 gm/dL (13.0-17.5); Lymphocytes # (A) 0.9 k/uL (1.0-4.8); Lymphocytes % (A) 15 %; MCH 32.5 pg (25.0-35.0); MCHC 32.4 g/dL (31.0-37.0); MCV 100.3 fL (80.0-100.0); Mean Platelet Volume 9.2; Monocytes # (A) 0.4 k/uL (0-1.0); Monocytes % (A) 7 %; Neutrophils # (A) 4.5 k/uL (1.3-7.7); Neutrophils % (A) 73 %; Platelet Count 197 k/uL (150-450); RBC 3.86 m/uL (4.30-5.90); RDW 12.9 % (11.5-15.5); WBC 6.1 k/uL (3.8-10.6)
[2023-10-12 02:55] LABS: ALT <6 U/L (4-49); AST 24 U/L (17-59); African American GFR (CKD) 66 (>60 ml/min/1.73 sqM); Albumin 3.8 g/dL (3.5-5.0); Alkaline Phosphatase 104 U/L (38-126); Anion Gap 6 mmol/L; Blood Urea Nitrogen 38 mg/dL (9-20); Calcium 9.6 mg/dL (8.4-10.2); Carbon Dioxide 22 mmol/L (22-30); Chloride 110 mmol/L (98-107); Glucose 110 mg/dL (74-99); Non-African American GFR(CKD) 57 (>60 ml/min/1.73 sqM); Potassium 4.3 mmol/L (3.5-5.1); Sodium 138 mmol/L (137-145); Total Bilirubin 0.7 mg/dL (0.2-1.3)
--- NOTE | 2023-10-12 03:47 | XR ---
EXAM: XR Chest, 2 Views CLINICAL HISTORY: Cough TECHNIQUE: Frontal and lateral views of the chest. COMPARISON: Chest 2 views dated 09/20/2023 FINDINGS: Lungs: No focal airspace consolidation identified. The interstitial markings are stable. The pulmonary vasculature demonstrates no significant radiographic abnormality. Pleural space: Unremarkable. No pneumothorax. No large pleural effusion. Heart: Unremarkable. No cardiomegaly. Mediastinum: The mediastinal contours are stable in appearance and unremarkable. No significant tracheal deviation. The thoracic aorta is widely calcified and is tortuous without significant enlargement. Bones/joints: Unremarkable. No acute fracture. IMPRESSION: No acute cardiopulmonary process or significant alteration from the prior examination.
[2023-10-12 04:10] LABS: Appearance,Urine Clear (Clear); Bacteria,Urine Rare /hpf; Bilirubin,Urine Negative (Negative); Blood,Urine Negative (Negative); Color,Urine Light Yellow; Glucose,Urine (UA) Negative (Negative); Hyaline Casts,Urine 1 /lpf (0-2); Ketones,Urine Negative (Negative); Leukocyte Esterase,Urine Trace (Negative); Mucus,Urine Rare /hpf; Nitrite,Urine Negative (Negative); PH, Urine 5.5 (5.0-8.0); Protein,Urine Negative (Negative); RBC,Urine <1 /hpf (0-5); Specific Gravity,Urine 1.022 (1.001-1.035); Urobilinogen,Urine <2.0 mg/dL (<2.0); WBC,Urine 9 /hpf (0-5)
[2023-10-12 04:28] LABS: Amphetamine Screen,Urine Not Detected (NotDetected); Benzodiazepines Screen,Urine Not Detected (NotDetected); Cocaine Screen,Urine Not Detected (NotDetected); Methadone Screen, Urine Not Detected (NotDetected); Opiate Screen,Urine Not Detected (NotDetected); Phencyclidine Screen,Urine Not Detected (NotDetected); Tricyclic Antidepressant,Urine Not Detected (NotDetected); Urn Cannabinoid Scrn Not Detected (NotDetected)
[2023-10-12 04:29] LABS: Barbiturate Screen,Urine Not Detected (NotDetected); Oxycodone Screen, Urine Not Detected (NotDetected)
[2023-10-12 06:46] VITALS: BP 104/62; PULSE 56
== END 2023-10-12 06:46 | disposition home or self-care (01) ==
LOC: EC 01:32
DX: Z13.39 Encounter for screening examination for other mental health and behavioral disorders (principal); I45.10 Unspecified right bundle-branch block; R00.1 Bradycardia, unspecified; Z11.52 Encounter for screening for COVID-19; Z87.891 Personal history of nicotine dependence
CPT/HCPCS: 36415; 71046; 80053; 80306; 81001; 82075; 85025; 87636; 93005; 99285

== ENCOUNTER 2023-10-14 01:47 | Emergency (ER) | payer MEDICARE ==
--- NOTE | 2023-10-14 02:10 | ED ---
Chest Pain HPI - General Chief Complaint: Shortness of Breath Stated Complaint: Chest Pain Time Seen by Provider: 10/14/23 01:54 Source: patient, EMS Mode of arrival: EMS Limitations: no limitations - History of Present Illness Initial Comments: This patient is an 78-year-old man who presents with complaint of chest pain. The patient states he has been having pains intermittently going back sometime. He is in fact scheduled to have surgery related to hiatal hernia next week. The it was reported that he had low pulse oximetry reading at his long-term care facility however during EMS transport the numbers were normal. Patient denies any anginal type symptoms. MD Complaint: chest pain -: week(s) Onset: during rest Pain Location: epigastric Pain Radiation: none Severity: moderate Quality: aching Consistency: constant Improves With: nothing Worsens With: eating Treatments Prior to Arrival: none - Related Data Home Medications Medication Instructions Recorded Confirmed Carbidopa-Levodopa ER 50-200Mg 1 tab PO TID@0800,1300,1800 08/21/23 10/18/23 [Sinemet CR 50-200 mg] Pramipexole [Mirapex] 0.25 mg PO BID@0800,2000 08/21/23 10/18/23 FLUoxetine HCL [PROzac] 20 mg PO QAM 09/21/23 10/18/23 OLANZapine [ZyPREXA] 5 mg PO HS@199909/21/23 10/18/23 busPIRone HCL [Buspar] 7.5 mg PO BID 10/14/23 10/18/23 Previous Rx's Medication Instructions Recorded Acetaminophen Tab [Tylenol] 650 mg PO Q6HR PRN tab 09/26/23 Folic Acid 1 mg PO DAILY@1200 #30 tab 09/26/23 Multivitamins, Thera [Multivitamin 1 each PO DAILY@1200 #30 tab 09/26/23 (formulary)] Thiamine [Vitamin B-1] 100 mg PO BID-W/MEALS #60 tab 09/26/23 traMADol HCl [Ultram] 50 mg PO Q6HR PRN 3 Days #12 tab 10/20/23 Allergies Allergy/AdvReac Type Severity Reaction Status Date / Time No Known Allergies Allergy Verified 10/18/23 09:54 Review of Systems ROS Statement: Those systems with pertinent positive or pertinent negative responses have been documented in the HPI. ROS Other: All systems not noted in ROS Statement are negative. Constitutional: Denies: fever, chills Respiratory: Denies: cough, dyspnea Cardiovascular: Reports: chest pain. Denies: as per HPI, palpitations, edema, syncope Gastrointestinal: Denies: abdominal pain, nausea, vomiting, diarrhea Genitourinary: Denies: dysuria, hematuria Musculoskeletal: Denies: back pain Skin: Denies: rash Neurological: Denies: headache, weakness EKG Findings - EKG Results: EKG: interpreted by RIMAD, sinus rhythm, normal axis, normal ST/T EKG shows: bradycardia (Rate 56 bpm) - Blocks, [place], Hypertrophy, ST Abn: AV and intraventricular conduction: right bundle branch block (fixed/intermittent, complete/incomplete) Past Medical History Additional Past Medical History / Comment(s): parkinsons History of Any Multi-Drug Resistant Organisms: None Reported Past Surgical History: No Surgical Hx Reported Past Psychological History: No Psychological Hx Reported Smoking Status: Former smoker Past Alcohol Use History: None Reported Past Drug Use History: None Reported General Exam Limitations: no limitations General appearance: alert, in no apparent distress Head exam: Present: atraumatic, normocephalic Eye exam: Present: normal appearance. Absent: scleral icterus, conjunctival injection Neck exam: Present: normal inspection Respiratory exam: Present: normal lung sounds bilaterally. Absent: respiratory distress, wheezes, rales, rhonchi, stridor, accessory muscle use Cardiovascular Exam: Present: regular rate, normal rhythm, normal heart sounds. Absent: systolic murmur, diastolic murmur, rubs, gallop GI/Abdominal exam: Present: soft. Absent: distended, tenderness, guarding, rebound, rigid, mass Extremities exam: Present: normal inspection, normal capillary refill. Absent: pedal edema, calf tenderness Back exam: Present: normal inspection. Absent: CVA tenderness (R), CVA tenderness (L) Neurological exam: Present: alert Skin exam: Present: warm, dry, intact, normal color. Absent: rash Course Vital Signs 10/14/23 10/14/23 10/14/23 01:52 02:04 03:12 Temperature 97.9 F Pulse Rate 70 53 L Respiratory 18 18 14 Rate Blood Pressure 102/60 96/53 O2 Sat by Pulse 98 100 Oximetry 10/14/23 10/14/23 04:29 05:37 Temperature 97.6 F Pulse Rate 68 52 L Respiratory 16 15 Rate Blood Pressure 120/59 110/57 O2 Sat by Pulse 99 99 Oximetry Chest Pain MDM - [facility] The patient had chest x-ray that I interpreted as negative for acute infiltrate, congestive heart failure, pneumothorax. Was pt. sent in by a medical professional or institution (, [facility], [employer], urgent ca re, hospital, or correction...) When possible be specific @ -[Patient is sent in from [facility] to have evaluation Did you speak to anyone other than the patient for history (EMS, parent, family, police, friend...)? What history was obtained from this source @ -[No] Did you review nursing and triage notes (agree or disagree)? Why? @ -[I reviewed and agree with nursing and triage notes] Were old charts reviewed (outside hosp., previous admission, EMS record, old EKG, old radiological studies, urgent care reports/EKG's, correction records)? Report findings @ -[No old charts were reviewed] Differential Diagnosis (chest pain, altered mental status, abdominal pain women, abdominal pain men, vaginal bleeding, weakness, fever, dyspnea, syncope, headache, dizziness, GI bleed, back pain, seizure, CVA, palpatations, mental health, musculoskeletal)? @ -[Differential Chest Pain: Stable Angina, Unstable Angina, STEMI, NSTEMI Aortic Dissection, Pneumothorax, Musculoskeletal, Esophageal Spasm GERD, Cholecystitis, Pancreatitis, Zoster, this is not meant to be an all-inclusive list. EKG interpreted by me (3pts min.). @ -[I interpreted as above] X-rays interpreted by me (1pt min.). @ -[I interpreted as above CT interpreted by me (1pt min.). @ -[None done] U/S interpreted by me (1pt. min.). @ -[None done] What testing was considered but not performed or refused? (CT, X-rays, U/S, labs)? Why? @ -[None] What meds were considered but not given or refused? Why? @ -[None] Did you discuss the management of the patient with other professionals (professionals i.e. MARY ANNE Monterroso, B[employer]IER, lab, RT, psych nurse, social services coordinator, bag grader, teacher, assurance officer, case management coordinator)? Give summary @ -[No] Was smoking cessation discussed for >3mins.? @ -[No] Was critical care preformed (if so, how long)? @ -[No] Were there social determinants of health that impacted care today? How? (Homelessness, low income, unemployed, alcoholism, drug addiction, transportation, low edu. Level, literacy, decrease access to med. care, mcc, rehab)? @ -[No] Was there de-escalation of care discussed even if they declined (Discuss DNR or withdrawal of care, Hospice)? DNR status @ -[No] What co-morbidities impacted this encounter? (DM, HTN, Smoking, COPD, CAD, Cancer, CVA, ARF, Chemo, Hep., AIDS, mental health diagnosis, sleep apnea, morbid obesity)? @ -[None] Was patient admitted / discharged? Hospital course, mention meds given and route, prescriptions, significant lab abnormalities, going to OR and other pertinent info. @ -[Patient is an 78-year-old man presenting with exacerbation of chronic chest pain. He is scheduled to have surgery related to hiatal hernia. The patient states that the pain is similar to what it has been. The home reported that the patient had low pulse oximetry readings but throughout the EMS transport and here his readings have been well and he is not complaining of dyspnea. At this point patient appears stable to follow-up for his already scheduled surgery. Undiagnosed new problem with uncertain prognosis? @ -[No] Drug Therapy requiring intensive monitoring for toxicity (Heparin, Nitro, Insulin, Cardizem)? @ -[No] Were any procedures done? @ -[No] Diagnosis/symptom? @ -Acute exacerbation of chronic chest pain Acute, or Chronic, or Acute on Chronic? @ -[Acute on chronic Uncomplicated (without systemic symptoms) or Complicated (systemic symptoms)? @ -Uncomplicated Side effects of treatment? @ -[No] Exacerbation, Progression, or Severe Exacerbation? @ -[No] Poses a threat to life or bodily function? How? (Chest pain, [place], [place], pneumonia, PE, COPD, DKA, ARF, appy, cholecystitis, CVA, Diverticulitis, Homicidal, Suicidal, threat to staff... and all critical care pts) @ -[No] Disposition Clinical Impression: Hiatal hernia, Chest pain Disposition: HOME SELF-CARE Condition: Good Instructions (If sedation given, give patient instructions): Chest Pain (ED) Is patient prescribed a controlled substance at d/c from ED?: No Referrals: None,Stated [REFERRING] - 1-2 days
[2023-10-14] MEDS: MAG HYDROX/AL HYDROX/SIMETH 30 ML, HYOSCYAMINE ELIXIR 10 ML, LIDOCAINE VISCOUS 2% 10 ML PO STA (02:40)
--- NOTE | 2023-10-14 02:52 | XR ---
EXAM: XR Chest, 2 Views CLINICAL HISTORY: ITS.REASON XR Reason: Chest Pain TECHNIQUE: Frontal and lateral views of the chest. COMPARISON: No relevant prior studies available. FINDINGS: Lungs: Unremarkable. No consolidation. Pleural space: Unremarkable. No pneumothorax. Heart: Unremarkable. No cardiomegaly. Mediastinum: Unremarkable. Normal mediastinal contour. Bones/joints: Unremarkable. No acute fracture. IMPRESSION: Normal chest x-rays.
[2023-10-14 02:55] LABS: Basophils # (A) 0.1 k/uL (0-0.2); Basophils % (A) 1 %; Eosinophils # (A) 0.1 k/uL (0-0.7); Eosinophils % (A) 3 %; HGB 13.6 gm/dL (13.0-17.5); Lymphocytes # (A) 1.5 k/uL (1.0-4.8); Lymphocytes % (A) 30 %; MCH 32.9 pg (25.0-35.0); MCHC 33.1 g/dL (31.0-37.0); MCV 99.5 fL (80.0-100.0); Mean Platelet Volume 8.5; Monocytes # (A) 0.4 k/uL (0-1.0); Monocytes % (A) 8 %; Neutrophils # (A) 2.7 k/uL (1.3-7.7); Neutrophils % (A) 55 %; Platelet Count 230 k/uL (150-450); RBC 4.12 m/uL (4.30-5.90); RDW 12.9 % (11.5-15.5)
[2023-10-14 02:57] LABS: ALT <6 U/L (4-49); AST 58 U/L (17-59); African American GFR (CKD) >90 (>60 ml/min/1.73 sqM); Albumin 4.3 g/dL (3.5-5.0); Alkaline Phosphatase 47 U/L (38-126); Anion Gap 4 mmol/L; Blood Urea Nitrogen 30 mg/dL (9-20); Calcium 9.4 mg/dL (8.4-10.2); Carbon Dioxide 22 mmol/L (22-30); Chloride 111 mmol/L (98-107); Glucose 97 mg/dL (74-99); Magnesium 2.3 mg/dL (1.6-2.3); Non-African American GFR(CKD) 83 (>60 ml/min/1.73 sqM); Sodium 137 mmol/L (137-145); Total Bilirubin 2.2 mg/dL (0.2-1.3); Total Protein 6.9 g/dL (6.3-8.2)
[2023-10-14] MEDS: LORazepam 2 MG/ML INJ IV STA (03:08)
[2023-10-14 03:25] LABS: INR 0.9 (<1.2); Partial Thromboplastin Time 23.2 sec (22.0-30.0); Prothrombin Time 10.2 sec (10.0-12.5)
[2023-10-14] MEDS: SODIUM CHLORIDE 0.9% 1,000 ML IV ONE (03:41)
[2023-10-14 05:39] VITALS: BP 110/57; PULSE 52; RESP 15; TEMP 97.6
== END 2023-10-14 05:58 | disposition home or self-care (01) ==
LOC: EC 01:47
DX: R00.1 Bradycardia, unspecified (principal); R07.89 Other chest pain; K44.9 Diaphragmatic hernia without obstruction or gangrene; Z87.891 Personal history of nicotine dependence
CPT/HCPCS: 36415; 93005; 80053; 83735; 84484; 85025; 85610; 85730; 71046; 99285; 96374; 96361 ×2; J2060

== ENCOUNTER 2023-10-18 09:14 | Inpatient (IN) | payer MEDICARE ==
[~2023-10-18 09:14] MED LIST: HYDROmorphone 0.5 MG/0.5 ML SYRINGE IVP PRN; LIDOCAINE 1% (10MG/ML) FOR IV START INTRADERMA PRN
[2023-10-18] MEDS: IV FLUID CONTINUATION 1,000 ML IV ONE (09:47)
[2023-10-18] MEDS: HEPARIN SODIUM,PORCINE 5,000 UNIT/ML 1 ML VIAL SQ PRN (10:03)
[2023-10-18] MEDS: ONDANSETRON 4 MG/2 ML VIAL IVP ONE (10:03)
[2023-10-18] MEDS: ACETAMINOPHEN TAB 500 MG TAB PO PRN (10:03)
[2023-10-18] MEDS: LACTATED RINGERS 1,000 ML IV SCH ×2 (10:11→13:00)
[2023-10-18] MEDS ORDERED: SUCCINYLCHOLINE CHLORIDE 200 MG/10 ML VIAL IV ONE (10:27)
[2023-10-18] MEDS ORDERED: NEOSTIGMINE 1 MG/ML 10 ML VIAL ONE (10:27)
[2023-10-18] MEDS ORDERED: fentaNYL (PF) 50 MCG/ML 2 ML AMP ONE (10:27)
[2023-10-18] MEDS ORDERED: ROCURONIUM 10 MG/ML (5 ML VIAL) IV ONE (10:27)
[2023-10-18] MEDS ORDERED: LIDOCAINE 1% INJ 10MG/ML (20 ML MDV) ONE (10:27)
[2023-10-18] MEDS ORDERED: GLYCOPYRROLATE 0.2 MG/ML 2 ML VIAL ONE (10:27)
[2023-10-18] MEDS ORDERED: PROPOFOL 10 MG/ML 20 ML VIAL IV ONE (10:27)
[2023-10-18] MEDS ORDERED: ePHEDrine 50 MG/ML 1 ML VIAL ONE (10:27)
[2023-10-18] MEDS: LIDOCAINE 1%-EPI 1:100,000 20 ML VIAL SQ ONE (10:51)
[2023-10-18] MEDS: LACTATED RINGERS 1,000 ML IV ONE (11:25)
[2023-10-18] MEDS ORDERED: ONDANSETRON 4 MG/2 ML VIAL IVP PRN (11:35)
[2023-10-18] MEDS ORDERED: NALOXONE 0.4 MG/ML 1 ML VIAL IV PRN (11:35)
[2023-10-18] MEDS ORDERED: ACETAMINOPHEN TAB 325 MG TAB PO PRN (11:35)
--- NOTE | 2023-10-18 11:35 | P.OP ---
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 The patient received general anesthesia. And was placed in dorsal lithotomy position. The patient was prepped and draped in the usual sterile fashion. The skin incision sites were anesthetized with 1% local Xylocaine. The skin was incised in the left periumbilical area and then using a blade less 5 mm trocar under direct visualization panel cavity was entered. After adequate insufflation the laparoscope was then placed into the peritoneal cavity. Next a 5 mm trochars placed in the right epigastric position. Another 5 millimeter trocar the right lateral position. Another 5 millimeter trocar in the left la teral position a 5 mm trocar is placed in the left epigastric position. And then the initial 5 mm trocar was exchanged for a 10 mm trocar. The left lateral lobe liver was retracted. The hernia was seen. The patient had a large intrathoracic paraesophageal hiatal hernia. The stomach was reduced. The adhesions to the stomach and hernia sac were then dissected using robotic scissors. The crural defect was then dissected using the Harmonic scissors device. A 360 crural dissection was performed the esophagus stomach was reduced back into the peritoneal Cavity. The crural defect was then closed using 2-0 Ethibond suture. Next. A piece of [place] bio a mesh was placed over top of the hiatal hernia repair. This secured with a 2-0 Ethibond via the Sogroya device.. Care was taken that the fundal location rested over top of the intra-abdominal esophagus. There was no injury seen to the stomach or esophagus. The dilator was then withdrawn. The abdomen was irrigated there is no bleeding seen. The trochars were then withdrawn and then skin incision sites were closed using 3-0 Monocryl suture Steri-Strips are applied. Patient thought procedure well and sent to recovery room in stable condition.
[2023-10-18] MEDS: KETOROLAC 15 MG/ML 1 ML VIAL IVP SCH (12:08)
[2023-10-18] MEDS: THIAMINE 100 MG TAB PO SCH (17:10)
[2023-10-18] MEDS: CARBIDOPA-LEVODOPA ER 50-200MG 1 EACH TABLET.ER PO SCH (17:10)
--- NOTE | 2023-10-18 19:09 | P.CONS ---
History of Present Illness - Reason for Consult Consult date: 10/18/23 Medical Management Requesting physician: Gera Jaramillo - History of Present Illness History of Presenting Illness: Patient is a 77-year-old male with a past medical history of Parkinson's disease. He is currently admitted under general surgery team status post paraesophageal hernia repair. Surgical procedure was completed by Dr. Jaramillo. We were consulted for medical management throughout hospitalization. Patient seen and fully evaluated in room 478 upon completion of surgical procedure. He is currently resting comfortably and reports only complaint is feeling tired. Patient denies having any postoperative nausea or vomiting and currently reports pain is controlled. He denies having headache, lightheadedness, dizziness, chest pain, palpitations, shortness of breath, or any other complaints at this time. Review of systems: Pertinent positives and negatives as discussed in HPI, a complete review of systems was performed and all other systems are negative. Physical exam: Vital signs reviewed and stable. General: Nontoxic, no distress and appears stated age. Derm: Skin warm and dry, normal coloration for ethnicity. Head: Atraumatic, normocephalic and symmetric. Eyes: EOMs intact, no lid lag, and anicteric sclera Mouth: no lip lesions, mucus membranes moist Cardiovascular: regular rate and rhythm with normal S1S2, systolic murmur, positive posterior tibial pulses bilaterally, and cap refill < 2 seconds. Lungs: Respirations even, regular, and unlabored on room air. Lungs CTA bilaterally, no rhonchi, no rales, no wheezing, and no accessory muscle usage. Abdominal: soft, nontender to palpation, no guarding, no appreciable organomegaly. Laparoscopic incisions to abdomen intact. Ext: Movement and sensation intact. No gross muscle atrophy, no edema, no contractures Neuro: Speech clear, face symmetrical and CN II-XII grossly intact with no noted focal neuro deficits Psych: Alert and oriented to person, place, time, and situation. Appropriate and pleasant affect. Assessment and Plan of Care: Status post paraesophageal hernia repair -Management per primary admitting general surgery team including DVT prophylaxis, wound/dressing management, advancement of diet, and pain management. -Order placed for telemetry monitoring -Order placed for incentive spirometry -Symptomatic care and pain management. -Patient placed on telemetry monitoring. Parkinson's disease -Patient to continue daily medication regimen with carbidopa levodopa 50-200 mg tablets 3 times daily. Anxiety with depression -Continue daily medication regimen with BuSpar 7.5 mg twice daily, Prozac 20 mg daily, and Zyprexa 5 mg nightly. Data and imaging reviewed: Reviewed operative report. Reviewed preoperative labs completed 10/14/2023 showing WBC count of 5.0, hemoglobin 13.6, and platelet count of 230. Vital signs reviewed. Blood pressure 104/56, heart rate 62, respiratory rate 16, temp 98.0 F, and SpO2 of 99% on 3 L. Thank you for allowing us to participate in the care of this pleasant patient. Do not hesitate to contact us with questions. Someone can be reached from the [facility] hospitalist group all hours of the day at [phone] or via [employer]. Patient was seen independently by Nurse Practitioner. This document was prepared using [employer] dictation software. Please allow for errors in head animal keeper while rare they do occur. Past Medical History Additional Past Medical History / Comment(s): Parkinson's, hiatal hernia History of Any Multi-Drug Resistant Organisms: None Reported Past Surgical History: Tonsillectomy Additional Past Surgical History / Comment(s): hernia repair 2023 Past Anesthesia/Blood Transfusion Reactions: No Reported Reaction Past Psychological History: Anxiety, Depression Smoking Status: Former smoker Past Alcohol Use History: None Reported Additional Past Alcohol Use History / Comment(s): quit 2011, smoked 1 ppd x 30 years. quit drinking 2018 but was a heavy drinker Past Drug Use History: None Reported Medications and Allergies Home Medications Medication Instructions Recorded Confirmed Type Carbidopa-Levodopa ER 50-200Mg 1 tab PO TID@0800,1300,1800 08/21/23 10/18/23 History [Sinemet CR 50-200 mg] Pramipexole [Mirapex] 0.25 mg PO BID@0800,199908/21/23 10/18/23 History FLUoxetine HCL [PROzac] 20 mg PO QAM 09/21/23 10/18/23 History OLANZapine [ZyPREXA] 5 mg PO HS@199909/21/23 10/18/23 History Acetaminophen Tab [Tylenol] 650 mg PO Q6HR PRN tab 09/26/23 10/18/23 Rx Folic Acid 1 mg PO DAILY@1200 #30 tab 09/26/23 10/18/23 Rx Multivitamins, Thera [Multivitamin 1 each PO DAILY@1200 #30 tab 09/26/23 10/18/23 Rx (formulary)] Thiamine [Vitamin B-1] 100 mg PO BID-W/MEALS #60 tab 09/26/23 10/18/23 Rx busPIRone HCL [Buspar] 7.5 mg PO BID 10/14/23 10/18/23 History Allergies Allergy/AdvReac Type Severity Reaction Status Date / Time No Known Allergies Allergy Verified 10/18/23 09:54 Physical Exam Vitals: Vital Signs Temp Pulse Resp BP BP Pulse Ox 10/18/23 14:18 62 16 10/18/23 14:13 98.0 F 62 16 104/56 99 10/18/23 13:42 98.3 F 62 17 102/57 97 10/18/23 12:49 98 F 72 16 102/72 97 10/18/23 12:30 61 20 109/47 94 L 10/18/23 12:15 63 22 110/53 94 L 10/18/23 12:00 68 20 111/44 96 10/18/23 11:45 70 16 108/46 100 10/18/23 11:40 97.4 F L 76 16 113/49 100 10/18/23 10:00 97.0 F L 62 16 128/60 97 Intake and Output 10/18/23 10/18/23 10/18/23 06:59 14:59 22:59 Intake Total 1350 Output Total 5 Balance 1345 Intake: IV 1350 Output: Estimated Blood Loss 5 Other: Voiding Method Urinal Weight 63.4 kg
[2023-10-18] MEDS: busPIRone HCl 5 MG TAB PO SCH (20:11)
[2023-10-18] MEDS: OLANZapine 5 MG TAB PO SCH (20:11)
[2023-10-18] MEDS: PRAMIPEXOLE 0.25 MG TAB PO SCH (20:11)
[2023-10-18] MEDS: SODIUM CHLORIDE 0.9% 500 ML 500 ML IV ONE (20:19)
[2023-10-19] MEDS: traMADol 50 MG TAB PO PRN (08:09)
[2023-10-19 09:05] LABS: ALT 13 U/L (4-49); AST 33 U/L (17-59); African American GFR (CKD) 74 (>60 ml/min/1.73 sqM); Albumin 2.9 g/dL (3.5-5.0); Albumin/Globulin Ratio 1.3; Alkaline Phosphatase 62 U/L (38-126); Anion Gap 2 mmol/L; Blood Urea Nitrogen 25 mg/dL (9-20); Calcium 8.8 mg/dL (8.4-10.2); Carbon Dioxide 24 mmol/L (22-30); Chloride 111 mmol/L (98-107); Globulin 2.2 g/dL; Glucose 88 mg/dL (74-99); Magnesium 1.9 mg/dL (1.6-2.3); Non-African American GFR(CKD) 64 (>60 ml/min/1.73 sqM); Potassium 4.8 mmol/L (3.5-5.1); Sodium 137 mmol/L (137-145); Total Bilirubin 1.1 mg/dL (0.2-1.3); Total Protein 5.1 g/dL (6.3-8.2)
[2023-10-19 09:10] LABS: HCT 36.4 % (39.0-53.0); MCH 33.1 pg (25.0-35.0); MCHC 32.9 g/dL (31.0-37.0); MCV 100.5 fL (80.0-100.0); Mean Platelet Volume 8.2; Platelet Count 185 k/uL (150-450); RBC 3.62 m/uL (4.30-5.90); RDW 12.9 % (11.5-15.5); WBC 4.5 k/uL (3.8-10.6)
[2023-10-19] MEDS: ENOXAPARIN 40 MG/0.4 ML SYRINGE SQ SCH (09:18)
[2023-10-19] MEDS: FLUoxetine HCL 20 MG CAP PO SCH (09:19)
[2023-10-19] MEDS: HYDROmorphone 0.5 MG/0.5 ML SYRINGE IVP PRN (09:48)
[2023-10-19] MEDS: TAMSULOSIN 0.4 MG CAP.ER.24H PO STA (11:24)
[2023-10-19] MEDS: FOLIC ACID 1 MG TAB PO SCH (11:48)
[2023-10-19] MEDS: MULTIVITAMINS, THERA 1 EACH TAB PO SCH (11:48)
--- NOTE | 2023-10-19 14:12 | P.PN ---
Subjective Progress Note Date: 10/19/23 CHIEF COMPLAINT: Large paraesophageal hiatal HISTORY OF PRESENT ILLNESS: Patient postop day #1 status post laparoscopic repair of a large paraesophageal hiatal hernia with intrathoracic stomach with mesh. Patient reports his pain is controlled. He did tolerate a few sips of liquid. He is having urinary retention and required to be straight cathed. Afebrile. WBC is 4.5 Hgb 12 platelets 185 creatinine 1.09 PHYSICAL EXAM: VITAL SIGNS: Reviewed. GENERAL: no acute distress. ABDOMEN: Soft. Nondistended. Tenderness at incision sites. Incisions clean dry and intact NEUROLOGIC: Alert and oriented. Cranial nerves II through XII grossly intact. ASSESSMENT: 1. 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 Urinary retention PLAN: -Continue clear liquid diet with no straws or carbonated beverages -Flomax added for urinary retention. Recommend Lawrence catheter placement if patient has to be straight cathed again -Increase activity level. Consult placed for PT OT -Encourage patient to use incentive spirometer -Continue IV fluids -Continue pain management -DVT prophylaxis Lovenox and GI prophylaxis Protonix Physician Ultrasound Supervisor note has been reviewed by physician. Signing provider agrees with the documented findings, assessment, and plan of care. Objective - Vital Signs Vital signs: Vital Signs Temp 98.0 F 10/19/23 13:55 Pulse 60 10/19/23 13:55 Resp 17 10/19/23 13:55 BP 98/58 10/19/23 13:55 Pulse Ox 98 10/19/23 13:55 FiO2 Intake & Output 10/18/23 10/19/23 10/19/23 18:59 06:59 18:59 Intake Total 1350 Output Total 5 450 500 Balance 1345 -450 -500 Weight 63.4 kg Intake: IV 1350 Output: Urine 0 450 500 Straight 450 500 Stool 0 Estimated Blood Loss 5 Other: Voiding Method Urinal # Voids 0 - Labs CBC & Chem 7: 10/19/23 08:46 10/19/23 08:46 Labs: Abnormal Lab Results - Last 24 Hours (Table) 10/19/23 10/19/23 Range/Units 08:46 08:46 RBC 3.62 L (4.30-5.90) m/uL Hgb 12.0 L (13.0-17.5) gm/dL Hct 36.4 L (39.0-53.0) % MCV 100.5 H (80.0-100.0) fL Chloride 111 H (98-107) mmol/L BUN 25 H (9-20) mg/dL Total Protein 5.1 L (6.3-8.2) g/dL Albumin 2.9 L (3.5-5.0) g/dL
[2023-10-19] MEDS: PANTOPRAZOLE 40 MG/10 ML VIAL IVP SCH (14:26)
--- NOTE | 2023-10-19 16:22 | P.PN ---
Subjective Progress Note Date: 10/19/23 Hospital Course: Patient is a 77-year-old male with a past medical history of Parkinson's disease. He is currently admitted under general surgery team status post paraesophageal hernia repair. Surgical procedure was completed by Dr. Jaramillo. We were consulted for medical management throughout hospitalization. Physical exam: Patient was seen and fully evaluated at bedside. He reports mild abdominal discomfort this morning but denies any episodes of nausea or vomiting. Patient reports he really does not have a large appetite but has been able to tolerate intake with clear liquid diet. Patient denies having any chest pain, palpitations, shortness of breath, or any other complaints at this time. Vital signs reviewed and stable. General: Nontoxic, no distress and appears stated age. Derm: Skin warm and dry, normal coloration for ethnicity. Head: Atraumatic, normocephalic and symmetric. Eyes: EOMs intact, no lid lag, and anicteric sclera Mouth: no lip lesions, mucus membranes moist Cardiovascular: regular rate and rhythm with normal S1S2, systolic murmur, positive posterior tibial pulses bilaterally, and cap refill < 2 seconds. Lungs: Respirations even, regular, and unlabored on room air. Lungs CTA bilaterally, no rhonchi, no rales, no wheezing, and no accessory muscle usage. Abdominal: soft, nontender to palpation, no guarding, no appreciable organomegaly. Laparoscopic incisions to abdomen intact. Ext: Movement and sensation intact. No gross muscle atrophy, no edema, no contractures Neuro: Speech clear, face symmetrical and CN II-XII grossly intact with no noted focal neuro deficits Psych: Alert and oriented to person, place, time, and situation. Appropriate and pleasant affect. Assessment and Plan of Care: Postoperative pain Status post paraesophageal hernia repair -Management per primary admitting general surgery team including DVT prophylaxis, wound/dressing management, advancement of diet, and pain management. -Continue telemetry monitoring -Continue to encourage use of incentive spirometry -Symptomatic care and pain management. -Patient placed on telemetry monitoring. Parkinson's disease -Patient to continue daily medication regimen with carbidopa levodopa 50-200 mg tablets 3 times daily. Anxiety with depression -Continue daily medication regimen with BuSpar 7.5 mg twice daily, Prozac 20 mg daily, and Zyprexa 5 mg nightly. Data and imaging reviewed: Labs reviewed. CBC showing acute postoperative blood loss anemia with hemoglobin of 12.0. BMP showing mild hyperchloremia with chloride of 111 and mild prerenal azotemia with BUN of 25 otherwise normal findings. Magnesium 1.9. Liver profile showing normal findings with exception of hypoalbuminemia with albumin of 2.9. Vital signs reviewed. Blood pressure 104/58, heart rate 63, respiratory rate 17, temp 97.9 F, and SpO2 of 95% on room air. Thank you for allowing us to participate in the care of this pleasant patient. Do not hesitate to contact us with questions. Someone can be reached from the [facility] hospitalist group all hours of the day at [phone] or via [employer]. Patient was seen independently by Nurse Practitioner. This document was prepared using [employer] dictation software. Please allow for errors in copywriting intern while rare they do occur. Objective - Vital Signs Vital signs: Vital Signs Temp 97.9 F 10/19/23 07:11 Pulse 97 10/19/23 07:11 Resp 16 10/19/23 07:11 BP 107/57 10/19/23 07:11 Pulse Ox 97 10/19/23 07:11 FiO2 Intake & Output 10/18/23 10/19/23 10/19/23 18:59 06:59 18:59 Intake Total 1350 Output Total 5 450 Balance 1345 -450 Weight 63.4 kg Intake: IV 1350 Output: Urine 0 450 Straight 450 Stool 0 Estimated Blood Loss 5 Other: Voiding Method Urinal # Voids 0 - Labs CBC & Chem 7: 10/19/23 08:46 10/19/23 08:46
[2023-10-19] MEDS: TAMSULOSIN 0.4 MG CAP.ER.24H PO SCH (17:45)
[2023-10-20 08:49] LABS: HCT 39.4 % (39.0-53.0); HGB 12.7 gm/dL (13.0-17.5); Hypochromasia Slight; MCH 33.1 pg (25.0-35.0); MCHC 32.3 g/dL (31.0-37.0); MCV 102.5 fL (80.0-100.0); Macrocytosis Slight; Mean Platelet Volume 8.7; Platelet Count 185 k/uL (150-450); RBC 3.84 m/uL (4.30-5.90); RDW 12.9 % (11.5-15.5); WBC 5.3 k/uL (3.8-10.6)
[2023-10-20 09:04] LABS: ALT <6 U/L (4-49); AST 27 U/L (17-59); African American GFR (CKD) 85 (>60 ml/min/1.73 sqM); Albumin 3.1 g/dL (3.5-5.0); Albumin/Globulin Ratio 1.3; Alkaline Phosphatase 68 U/L (38-126); Anion Gap 5 mmol/L; Blood Urea Nitrogen 19 mg/dL (9-20); Carbon Dioxide 23 mmol/L (22-30); Chloride 109 mmol/L (98-107); Globulin 2.3 g/dL; Glucose 104 mg/dL (74-99); Magnesium 1.8 mg/dL (1.6-2.3); Non-African American GFR(CKD) 74 (>60 ml/min/1.73 sqM); Potassium 4.5 mmol/L (3.5-5.1); Sodium 137 mmol/L (137-145); Total Bilirubin 1.3 mg/dL (0.2-1.3); Total Protein 5.4 g/dL (6.3-8.2)
--- NOTE | 2023-10-20 12:17 | P.PN ---
Subjective Progress Note Date: 10/20/23 Hospital Course: Patient is a 77-year-old male with a past medical history of Parkinson's disease. He is currently admitted under general surgery team status post paraesophageal hernia repair completed 10/18/2023. Surgical procedure was completed by Dr. Jaramillo. We were consulted for medical management throughout hospitalization. Physical exam: Patient was seen and fully evaluated at bedside. He is postoperative day 2 and appears to be doing well this morning. Patient sitting up in the chair and reports only mild postoperative pain at incisional sites. He denies having any nausea or vomiting and continues to tolerate clear liquid diet without any difficulties. Vital signs reviewed and stable. General: Nontoxic, no distress and appears stated age. Derm: Skin warm and dry, normal coloration for ethnicity. Head: Atraumatic, normocephalic and symmetric. Eyes: EOMs intact, no lid lag, and anicteric sclera Mouth: no lip lesions, mucus membranes moist Cardiovascular: regular rate and rhythm with normal S1S2, systolic murmur, positive posterior tibial pulses bilaterally, and cap refill < 2 seconds. Lungs: Respirations even, regular, and unlabored on room air. Lungs CTA bilaterally, no rhonchi, no rales, no wheezing, and no accessory muscle usage. Abdominal: soft, nontender to palpation, no guarding, no appreciable organomegaly. Laparoscopic incisions to abdomen intact. Ext: Movement and sensation intact. No gross muscle atrophy, no edema, no contractures Neuro: Speech clear, face symmetrical and CN II-XII grossly intact with no noted focal neuro deficits Psych: Alert and oriented to person, place, time, and situation. Appropriate and pleasant affect. Assessment and Plan of Care: Postoperative pain Status post paraesophageal hernia repair -Management per primary admitting general surgery team including DVT prophylaxis, wound/dressing management, advancement of diet, and pain management. -Continue telemetry monitoring -Continue to encourage use of incentive spirometry -Symptomatic care and pain management. Postoperative urinary retention -Patient straight catheterized x 2 and continued to have postoperative urinary retention, order was placed for insertion of Lawrence catheter. -Patient started on Flomax 0.4 mg daily. -Strict I's and O's. Urinary output over the past 24 hours documented 3350 cc. Parkinson's disease -Patient to continue daily medication regimen with carbidopa levodopa 50-200 mg tablets 3 times daily. Anxiety with depression -Continue daily medication regimen with BuSpar 7.5 mg twice daily, Prozac 20 mg daily, and Zyprexa 5 mg nightly. Data and imaging reviewed: Labs reviewed. CBC showing stable and microcytic anemia with hemoglobin of 12.7 and MCV of 102.5. BMP showing mild hyperchloremia with chloride of 109 otherwise normal findings. Blood glucose 104. Magnesium 1.8. And liver profi le unremarkable with exception of hypoalbuminemia with albumin of 3.1. Vital signs reviewed. Blood pressure 129/72, heart rate 68, respiratory rate 18, temp 97.9 F, and SpO2 of 94% on room air. Thank you for allowing us to participate in the care of this pleasant patient. Do not hesitate to contact us with questions. Someone can be reached from the [facility] hospitalist group all hours of the day at [phone] or via [employer]. Patient was seen independently by Nurse Practitioner. This document was prepared using [employer] dictation software. Please allow for errors in associate professor of pathology while rare they do occur. Objective - Vital Signs Vital signs: Vital Signs Temp 97.9 F 10/20/23 07:12 Pulse 68 10/20/23 07:49 Resp 18 10/20/23 07:49 BP 129/72 10/20/23 07:12 Pulse Ox 94 L 10/20/23 07:12 FiO2 Intake & Output 10/19/23 10/20/23 10/20/23 18:59 06:59 18:59 Intake Total 240 Output Total 800 2550 Balance -800 -2310 Intake: Oral 240 Output: Urine 800 2550 Straight 500 Uretheral (Lawrence) 1100 Other: Voiding Method Urinal - Labs CBC & Chem 7: 10/20/23 08:26 10/20/23 08:26 Labs: Abnormal Lab Results - Last 24 Hours (Table) 10/19/23 10/19/23 Range/Units 08:46 08:46 RBC 3.62 L (4.30-5.90) m/uL Hgb 12.0 L (13.0-17.5) gm/dL Hct 36.4 L (39.0-53.0) % MCV 100.5 H (80.0-100.0) fL Chloride 111 H (98-107) mmol/L BUN 25 H (9-20) mg/dL Total Protein 5.1 L (6.3-8.2) g/dL Albumin 2.9 L (3.5-5.0) g/dL
--- NOTE | 2023-10-20 13:16 | P.PN ---
Subjective Progress Note Date: 10/20/23 CHIEF COMPLAINT: Large paraesophageal hiatal HISTORY OF PRESENT ILLNESS: Patient postop day #2 status post laparoscopic repair of a large paraesophageal hiatal hernia with intrathoracic stomach with mesh. Patient complaining of abdominal pain. He denies any nausea or vomiting. Denies any difficulty swallowing. Denies any bowel activity. He did have urinary retention and Lawrence catheter had to be placed yesterday. Afebrile. WBC 5.3 Hgb 12.7 Patient seen and examined with Dr. Jaramillo PHYSICAL EXAM: VITAL SIGNS: Reviewed. GENERAL: no acute distress. ABDOMEN: Soft. Mildly distended tenderness at incision sites. Incisions clean dry and intact NEUROLOGIC: Alert and oriented. Cranial nerves II through XII grossly intact. ASSESSMENT: 1. 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 Urinary retention PLAN: -Continue clear liquid diet with no straws or carbonated beverages -Encouraged patient to increase activity level -Anticipate discharge tomorrow -Discontinue Lawrence catheter in a.m. -Continue IV fluids -Continue pain management -DVT prophylaxis Lovenox and GI prophylaxis Protonix Physician Engine Turner note has been reviewed by physician. Signing provider agrees with the documented findings, assessment, and plan of care. Objective - Vital Signs Vital signs: Vital Signs Temp 97.9 F 10/20/23 07:12 Pulse 68 10/20/23 07:49 Resp 18 10/20/23 07:49 BP 129/72 10/20/23 07:12 Pulse Ox 94 L 10/20/23 07:12 FiO2 Intake & Output 10/19/23 10/20/23 10/20/23 18:59 06:59 18:59 Intake Total 240 360 Output Total 800 2550 Balance -800 -2310 360 Intake: Oral 240 360 Output: Urine 800 2550 Straight 500 Uretheral (Lawrence) 1100 Other: Voiding Method Indwelling Catheter - Labs CBC & Chem 7: 10/20/23 08:26 10/20/23 08:26 Labs: Abnormal Lab Results - Last 24 Hours (Table) 10/20/23 10/20/23 Range/Units 08:26 08:26 RBC 3.84 L (4.30-5.90) m/uL Hgb 12.7 L (13.0-17.5) gm/dL MCV 102.5 H (80.0-100.0) fL Chloride 109 H (98-107) mmol/L Glucose 104 H (74-99) mg/dL Total Protein 5.4 L (6.3-8.2) g/dL Albumin 3.1 L (3.5-5.0) g/dL
[2023-10-20 15:32] VITALS: BMI 18.9
[2023-10-21 08:31] LABS: HCT 34.2 % (39.6-50.0); HGB 11.6 g/dL (13.0-17.0); MCH 32.7 pg (27.0-32.0); MCHC 33.9 g/dL (32.0-37.0); MCV 96.3 FL (80.0-97.0); Mean Platelet Volume 11.5 FL (9.5-12.2); NRBC Per 100 WBC 0 X 10*3/uL (0.00-0.01); Platelet Count 169 X 10*3/uL (140-440); RBC 3.55 X 10*6/uL (4.40-5.60); RDW 12.4 % (11.5-14.5); WBC 3.87 X 10*3/uL (4.50-10.00)
[2023-10-21 08:38] LABS: ALT 8 U/L (10-49); AST 25 U/L (14-35); Albumin 3.4 g/dL (3.8-4.9); Albumin/Globulin Ratio 2.12 Ratio (1.60-3.17); Alkaline Phosphatase 85 U/L (41-126); Blood Urea Nitrogen 14.3 mg/dL (9.0-27.0); Calcium 8.8 mg/dL (8.7-10.3); Carbon Dioxide 21.9 mmol/L (21.6-31.8); Chloride 107 mmol/L (96-109); Globulin 1.6 g/dL (1.6-3.3); Glucose 87 mg/dL (70-110); Magnesium 1.8 mg/dL (1.5-2.4); Potassium 4.1 mmol/L (3.5-5.5); Sodium 139 mmol/L (135-145); Total Bilirubin 0.8 mg/dL (0.3-1.2)
[2023-10-21] MEDS: DICYCLOMINE 10 MG/ML 2 ML AMP IM STA (11:57)
--- NOTE | 2023-10-21 12:56 | US ---
EXAMINATION TYPE: US kidneys/renal and bladder DATE OF EXAM: 10/21/2023 Exam done portable COMPARISON: CT 2023 CLINICAL INDICATION: Male, 77 years old with history of hematuria, urinary retention; EXAM MEASUREMENTS: Right Kidney: 7.6 x 3.8 x 3.9 cm Left Kidney: not seen Right Kidney: small in size Left Kidney: not seen due to patient position and overlying bowel gas Bladder: debris, appears overly distended Bilateral Jets seen: no IMPRESSION: 1. Left kidney not visualized. Right kidney is diminutive in size correlate for chronic medical renal disease. No hydronephrosis. 2. The bladder is distended with internal debris which could be related to sediment or blood product. Correlate for infectious etiology. Correlate for urinary outlet obstruction.
--- NOTE | 2023-10-21 14:52 | P.PN ---
Subjective Progress Note Date: 10/21/23 Principal diagnosis: I reviewed the documentation as provided by the ADITI above, who is the original author of this note. I agree with the documented assessment and plan, with the following changes: none Hospital Course: Patient is a 77-year-old male with a past medical history of Parkinson's disease. He is currently admitted under general surgery team status post paraesophageal hernia repair completed 10/18/2023. Surgical procedure was completed by Dr. Jaramillo. We were consulted for medical management throughout hospitalization. Physical exam: Patient was seen and fully evaluated at bedside. He is postoperative day 2 and appears to be doing well this morning. Patient sitting up in the chair and reports only mild postoperative pain at incisional sites. He denies having any nausea or vomiting and continues to tolerate clear liquid diet without any di fficulties. Vital signs reviewed and stable. General: Nontoxic, no distress and appears stated age. Derm: Skin warm and dry, normal coloration for ethnicity. Head: Atraumatic, normocephalic and symmetric. Eyes: EOMs intact, no lid lag, and anicteric sclera Mouth: no lip lesions, mucus membranes moist Cardiovascular: regular rate and rhythm with normal S1S2, systolic murmur, positive posterior tibial pulses bilaterally, and cap refill < 2 seconds. Lungs: Respirations even, regular, and unlabored on room air. Lungs CTA bilaterally, no rhonchi, no rales, no wheezing, and no accessory muscle usage. Abdominal: soft, nontender to palpation, no guarding, no appreciable organomegaly. Laparoscopic incisions to abdomen intact. Ext: Movement and sensation intact. No gross muscle atrophy, no edema, no contractures Neuro: Speech clear, face symmetrical and CN II-XII grossly intact with no noted focal neuro deficits Psych: Alert and oriented to person, place, time, and situation. Appropriate and pleasant affect. Assessment and Plan of Care: Postoperative pain Status post paraesophageal hernia repair -Management per primary admitting general surgery team including DVT prophylaxis, wound/dressing management, advancement of diet, and pain management. -Continue telemetry monitoring -Continue to encourage use of incentive spirometry -Symptomatic care and pain management. Postoperative urinary retention Hematuria -Patient straight catheterized x 2 and continued to have postoperative urinary retention, order was placed for insertion of Lawrence catheter. -Continue Flomax 0.4 mg daily. -Continue management/care of Lawrence catheter -Urology consulted, appreciate recommendation -Orders placed for ultrasound kidneys, ureters, bladder -Strict I's and O's. Urinary output over the past 24 hours documented 3375 cc. Parkinson's disease -Patient to continue daily medication regimen with carbidopa levodopa 50-200 mg tablets 3 times daily. Anxiety with depression -Continue daily medication regimen with BuSpar 7.5 mg twice daily, Prozac 20 mg daily, and Zyprexa 5 mg nightly. Data and imaging reviewed: Labs reviewed. CBC showing bicytopenia with WBC count of 3.87, hemoglobin 11.6. BMP unremarkable. Liver profile showing hypoalbuminemia with albumin of 3.4 otherwise normal findings. Magnesium 1.8. Vital signs reviewed. Blood pressure 131/67, heart rate 70, respiratory rate 20, temp 97.9 F, and SpO2 of 90% on room air. Thank you for allowing us to participate in the care of this pleasant patient. Do not hesitate to contact us with questions. Someone can be reached from the [facility] hospitalist group all hours of the day at [phone] or via [employer]. Patient was seen independently by Nurse Practitioner. This document was prepared using [employer] dictation software. Please allow for errors in cinder man while rare they do occur. Objective - Vital Signs Vital signs: Vital Signs Temp 97.9 F 10/21/23 06:49 Pulse 70 10/21/23 06:49 Resp 20 10/21/23 06:49 BP 131/67 10/21/23 06:49 Pulse Ox 93 L 10/21/23 08:12 FiO2 Intake & Output 10/20/23 10/21/23 10/21/23 18:59 06:59 18:59 Intake Total 960 1375 Output Total 525 2850 Balance 435 -1475 Weight 63.4 kg Intake: Intake, IV Titration 1375 Amount Lactated Ringers 1,000 ml 1375 @ 125 mls/hr IV .Q8H [facility] Rx#:[id number] Oral 960 Output: Urine 525 2850 Other: Voiding Method Indwelling Catheter Indwelling Catheter # Bowel Movements 1 - Labs CBC & Chem 7: 10/24/23 03:42 10/24/23 03:42 Labs: Abnormal Lab Results - Last 24 Hours (Table) 07/25/24 07/26/24 07/26/24 Range/Units 08:26 05:18 05:18 WBC 3.87 L (4.50-10.00) X 10*3/uL RBC 3.55 L (4.40-5.60) X 10*6/uL Hgb 11.6 L (13.0-17.0) g/dL Hct 34.2 L (39.6-50.0) % MCH 32.7 H (27.0-32.0) pg Chloride 109 H (98-107) mmol/L Glucose 104 H (74-99) mg/dL ALT 8 L (10-49) U/L Total Protein 5.4 L 5.0 L (6.3-8.2) g/dL Albumin 3.1 L 3.4 L (3.5-5.0) g/dL
--- NOTE | 2023-10-21 15:04 | P.PN ---
Subjective Progress Note Date: 10/21/23 CHIEF COMPLAINT: Paraesophageal hiatal hernia HISTORY OF PRESENT ILLNESS: The patient is a 77-year-old male status post repair paraesophageal hiatal hernia. He is sitting in bed with moderate bleeding along his hands and thighs with Lawrence discontinued. No reports of vomiting. Per discussion with nurse, patient was actively pulling his own Lawrence catheter causing urogenital trauma. ROS: No reports of nausea and vomiting. No bowel movements. No fevers or chills. No new chest pain. No productive sputum PHYSICAL EXAM: VITAL SIGNS: Reviewed CONSTITUTIONAL: Well developed and in no acute distress. EYES: Conjuctivae without sclera icterus. Extraocular movements grossly intact. HEAD, EARS, NOSE, THROAT: Moist buccal mucosa. Head is atraumatic, normocephalic. Hears conversational speech. No nasal drainage. RESPIRATORY: Non-labored respirations and equal bilateral excursions. CARDIOVASCULAR: Palpable 2+ radial pulses. ABDOMEN: No peritonitis. MUSCULOSKELETAL: No gross deformity of the lower extremities noted. No clubbing. No cyanosis. SKIN: Good skin turgor. Well perfused. NEUROLOGIC: Cranial nerves II through XII grossly intact. No focal or lateralizing signs. PSYCH: CLINICAL LABS: Reviewed. Hemoglobin down 12.7 11.6, anemia. ASSESSMENT: 1. Paraesophageal hiatal hernia 2. Urinary retention 3. Urogenital trauma due to pulling a Lawrence PLAN: 1. Per discussion with nurse, reinsertion of Lawrence catheter confirmed per urologist. 2. Recommend liquid diet for recent paraesophageal hiatal hernia repair Objective - Vital Signs Vital signs: Vital Signs Temp 98.1 F 10/21/23 13:56 Pulse 79 10/21/23 13:56 Resp 18 10/21/23 13:56 BP 126/66 10/21/23 13:56 Pulse Ox 93 L 10/21/23 13:56 FiO2 Intake & Output 10/20/23 10/21/23 10/21/23 18:59 06:59 18:59 Intake Total 960 1375 Output Total 525 2850 0 Balance 435 -1475 0 Weight 63.4 kg Intake: Intake, IV Titration 1375 Amount Lactated Ringers 1,000 ml 1375 @ 125 mls/hr IV .Q8H [facility] Rx#:[id number] Oral 960 Output: Urine 525 2850 Stool 0 Other: Voiding Method Indwelling Catheter Indwelling Catheter Indwelling Catheter # Bowel Movements 1 - Labs CBC & Chem 7: 10/21/23 05:18 10/21/23 05:18 Labs: Abnormal Lab Results - Last 24 Hours (Table) 10/21/23 10/21/23 Range/Units 05:18 05:18 WBC 3.87 L (4.50-10.00) X 10*3/uL RBC 3.55 L (4.40-5.60) X 10*6/uL Hgb 11.6 L (13.0-17.0) g/dL Hct 34.2 L (39.6-50.0) % MCH 32.7 H (27.0-32.0) pg ALT 8 L (10-49) U/L Total Protein 5.0 L (6.2-8.2) g/dL Albumin 3.4 L (3.8-4.9) g/dL
[2023-10-22] MEDS: PANTOPRAZOLE 40 MG TABLET PO SCH (08:00)
[2023-10-22 08:24] LABS: HCT 35.6 % (39.0-53.0); HGB 12.2 gm/dL (13.0-17.5); MCH 34.1 pg (25.0-35.0); MCHC 34.3 g/dL (31.0-37.0); MCV 99.5 fL (80.0-100.0); Mean Platelet Volume 8.7; Platelet Count 214 k/uL (150-450); RBC 3.58 m/uL (4.30-5.90); RDW 12.6 % (11.5-15.5); WBC 5.6 k/uL (3.8-10.6)
[2023-10-22 08:51] LABS: ALT 8 U/L (4-49); AST 28 U/L (17-59); African American GFR (CKD) 74 (>60 ml/min/1.73 sqM); Albumin 3.2 g/dL (3.5-5.0); Albumin/Globulin Ratio 1.5; Alkaline Phosphatase 80 U/L (38-126); Anion Gap 8 mmol/L; Blood Urea Nitrogen 22 mg/dL (9-20); Calcium 8.9 mg/dL (8.4-10.2); Carbon Dioxide 22 mmol/L (22-30); Chloride 106 mmol/L (98-107); Globulin 2.2 g/dL; Glucose 95 mg/dL (74-99); Magnesium 1.8 mg/dL (1.6-2.3); Non-African American GFR(CKD) 64 (>60 ml/min/1.73 sqM); Sodium 136 mmol/L (137-145); Total Bilirubin 1.8 mg/dL (0.2-1.3); Total Protein 5.4 g/dL (6.3-8.2)
--- NOTE | 2023-10-22 09:54 | P.GSCN ---
History of Present Illness Consult date: 10/22/23 Reason for Consult: Urinary retention History of present illness: This is a 77-year-old male status post tus post repair paraesophageal hiatal hernia, urologist consulted for urinary retention. Patient pulled his catheter out on the night of October 19. Following that it was noticed that he is having gross hematuria and difficulty voiding. Underwent a renal bladder ultrasound that showed evidence of a distended bladder with debris. Patient is a poor historian. But no previous known history of urinary retention or previous urological surgeries. Catheter was reinserted yesterday and the urine this morning is clear. Review of Systems ROS unobtainable: due to mental status Past Medical History Additional Past Medical History / Comment(s): Parkinson's, hiatal hernia History of Any Multi-Drug Resistant Organisms: None Reported Past Surgical History: Tonsillectomy Additional Past Surgical History / Comment(s): hernia repair 2023 Past Anesthesia/Blood Transfusion Reactions: No Reported Reaction Past Psychological History: Anxiety, Depression Smoking Status: Former smoker Past Alcohol Use History: None Reported Additional Past Alcohol Use History / Comment(s): quit 2011, smoked 1 ppd x 30 years. quit drinking 2018 but was a heavy drinker Past Drug Use History: None Reported Medications and Allergies Home Medications Medication Instructions Recorded Confirmed Type Carbidopa-Levodopa ER 50-200Mg 1 tab PO TID@0800,1300,1800 08/21/23 10/18/23 History [Sinemet CR 50-200 mg] Pramipexole [Mirapex] 0.25 mg PO BID@0800,199908/21/23 10/18/23 History FLUoxetine HCL [PROzac] 20 mg PO QAM 09/21/23 10/18/23 History OLANZapine [ZyPREXA] 5 mg PO HS@199909/21/23 10/18/23 History Acetaminophen Tab [Tylenol] 650 mg PO Q6HR PRN tab 09/26/23 10/18/23 Rx Folic Acid 1 mg PO DAILY@1200 #30 tab 09/26/23 10/18/23 Rx Multivitamins, Thera [Multivitamin 1 each PO DAILY@1200 #30 tab 09/26/23 10/18/23 Rx (formulary)] Thiamine [Vitamin B-1] 100 mg PO BID-W/MEALS #60 tab 09/26/23 10/18/23 Rx busPIRone HCL [Buspar] 7.5 mg PO BID 10/14/23 10/18/23 History traMADol HCl [Ultram] 50 mg PO Q6HR PRN 3 Days #12 tab 10/20/23 Rx Allergies Allergy/AdvReac Type Severity Reaction Status Date / Time No Known Allergies Allergy Verified 10/18/23 09:54 Surgical - Exam Vital Signs Temp Pulse Resp BP Pulse Ox 97.0 F L 62 16 128/60 97 10/18/23 10:00 10/18/23 10:00 10/18/23 10:00 10/18/23 10:00 10/18/23 10:00 - General no distress, no pain - Eyes normal ocular movement, no pale - ENT normal nares, normal mucosa - Abdomen Abdomen: soft, non tender, no distended Results - Labs 10/22/23 08:13 10/22/23 08:13 Abnormal Lab Results - Last 24 Hours (Table) 10/22/23 10/22/23 Range/Units 08:13 08:13 RBC 3.58 L (4.30-5.90) m/uL Hgb 12.2 L (13.0-17.5) gm/dL Hct 35.6 L (39.0-53.0) % Sodium 136 L (137-145) mmol/L BUN 22 H (9-20) mg/dL Total Bilirubin 1.8 H (0.2-1.3) mg/dL Total Protein 5.4 L (6.3-8.2) g/dL Albumin 3.2 L (3.5-5.0) g/dL Diabetes panel 10/22/23 Range/Units 08:13 Sodium 136 L (137-145) mmol/L Potassium 4.0 (3.5-5.1) mmol/L Chloride 106 (98-107) mmol/L Carbon Dioxide 22 (22-30) mmol/L BUN 22 H (9-20) mg/dL Creatinine 1.09 (0.66-1.25) mg/dL Glucose 95 (74-99) mg/dL Calcium 8.9 (8.4-10.2) mg/dL AST 28 (17-59) U/L ALT 8 (4-49) U/L Alkaline Phosphatase 80 (38-126) U/L Total Protein 5.4 L (6.3-8.2) g/dL Albumin 3.2 L (3.5-5.0) g/dL Calcium panel 10/22/23 Range/Units 08:13 Calcium 8.9 (8.4-10.2) mg/dL Albumin 3.2 L (3.5-5.0) g/dL Pituitary panel 10/22/23 Range/Units 08:13 Sodium 136 L (137-145) mmol/L Potassium 4.0 (3.5-5.1) mmol/L Chloride 106 (98-107) mmol/L Carbon Dioxide 22 (22-30) mmol/L BUN 22 H (9-20) mg/dL Creatinine 1.09 (0.66-1.25) mg/dL Glucose 95 (74-99) mg/dL Calcium 8.9 (8.4-10.2) mg/dL Adrenal panel 10/22/23 Range/Units 08:13 Sodium 136 L (137-145) mmol/L Potassium 4.0 (3.5-5.1) mmol/L Chloride 106 (98-107) mmol/L Carbon Dioxide 22 (22-30) mmol/L BUN 22 H (9-20) mg/dL Creatinine 1.09 (0.66-1.25) mg/dL Glucose 95 (74-99) mg/dL Calcium 8.9 (8.4-10.2) mg/dL Total Bilirubin 1.8 H (0.2-1.3) mg/dL AST 28 (17-59) U/L ALT 8 (4-49) U/L Alkaline Phosphatase 80 (38-126) U/L Total Protein 5.4 L (6.3-8.2) g/dL Albumin 3.2 L (3.5-5.0) g/dL Assessment and Plan Assessment: 77-year-old male with history of urinary retention, pulled his catheter out on October 19 developed hematuria and retention, catheter was reinserted yesterday. Urine this morning is clear Recommend starting Flomax Can have a repeat trial of void prior to discharge
--- NOTE | 2023-10-22 11:56 | P.PN ---
Subjective Progress Note Date: 10/22/23 Principal diagnosis: I reviewed the documentation as provided by the ADITI above, who is the original author of this note. I agree with the documented assessment and plan, with the following changes: none Hospital Course: Patient is a 77-year-old male with a past medical history of Parkinson's disease. He is currently admitted under general surgery team status post paraesophageal hernia repair completed 10/18/2023. Surgical procedure was completed by Dr. Jaramillo. We were consulted for medical management throughout hospitalization. Physical exam: Patient was seen and fully evaluated at bedside. He is postoperative day 4 and continues to do well at this time. He has tolerated clear liquid diet and requesting for diet to be advanced at this time. He denies any dysphagia and reports only experiencing mild pain this morning. Patient denies having any armin sea, vomiting, chest pain, palpitations, shortness of breath, or any other complaints. Vital signs reviewed and stable. General: Nontoxic, no distress and appears stated age. Derm: Skin warm and dry, normal coloration for ethnicity. Head: Atraumatic, normocephalic and symmetric. Eyes: EOMs intact, no lid lag, and anicteric sclera Mouth: no lip lesions, mucus membranes moist Cardiovascular: regular rate and rhythm with normal S1S2, systolic murmur, positive posterior tibial pulses bilaterally, and cap refill < 2 seconds. Lungs: Respirations even, regular, and unlabored on room air. Lungs CTA bilaterally, no rhonchi, no rales, no wheezing, and no accessory muscle usage. Abdominal: soft, nontender to palpation, no guarding, no appreciable organomegaly. Laparoscopic incisions to abdomen intact. Ext: Movement and sensation intact. No gross muscle atrophy, no edema, no contractures Neuro: Speech clear, face symmetrical and CN II-XII grossly intact with no noted focal neuro deficits Psych: Alert and oriented to person, place, time, and situation. Appropriate and pleasant affect. Assessment and Plan of Care: Postoperative pain Status post paraesophageal hernia repair -Management per primary admitting general surgery team including DVT prophylaxis, wound/dressing management, advancement of diet, and pain management. -Continue telemetry monitoring -Continue to encourage use of incentive spirometry -Symptomatic care and pain management. -PT/OT following Postoperative urinary retention Hematuria, secondary to urogenital trauma from patient pulling out Lawrence -Continue Flomax 0.4 mg daily. -Continue management/care of Lawrence catheter -Urology consulted Secondary to urogenital trauma from pulling out Lawrence and now with gross hematuria, appreciate recommendation -Bladder ultrasound showing bladder is distended with internal debris's likely representing blood product, with concerns of urinary outlet obstruction. -Strict I's and O's. Urinary output over the past 24 hours documented 1325 cc. Parkinson's disease -Patient to continue daily medication regimen with carbidopa levodopa 50-200 mg tablets 3 times daily. Anxiety with depression -Continue daily medication regimen with BuSpar 7.5 mg twice daily, Prozac 20 mg daily, and Zyprexa 5 mg nightly. Data and imaging reviewed: Labs reviewed. CBC showing mild normocytic anemia with hemoglobin of 12.2. BMP showing mild prerenal azotemia with BUN of 22 otherwise normal findings. Magnesium 1.8. Liver profile showing mild hyperbilirubinemia with total bili of 1.8 and hypoalbuminemia with albumin of 3.2 otherwise normal findings. Vital signs reviewed. Blood pressure 117/63, heart rate 65, respiratory rate 17, temp 97.8 F, and SpO2 of 96% on room air. Thank you for allowing us to participate in the care of this pleasant patient. Do not hesitate to contact us with questions. Someone can be reached from the [facility] hospitalist group all hours of the day at [phone] or via perfect serve. Patient was seen independently by Nurse Practitioner. This document was prepared using [employer] dictation software. Please allow for errors in barrel inspector while rare they do occur. Objective - Vital Signs Vital signs: Vital Signs Temp 99.1 F 10/22/23 01:47 Pulse 75 10/22/23 01:47 Resp 18 10/22/23 01:47 BP 108/62 10/22/23 01:47 Pulse Ox 96 10/22/23 01:47 FiO2 Intake & Output 10/21/23 10/22/23 10/22/23 18:59 06:59 18:59 Output Total 900 425 Balance -900 -425 Output: Urine 900 425 Stool 0 Other: Voiding Method Indwelling Catheter Indwelling Catheter # Bowel Movements 1 - Labs CBC & Chem 7: 10/24/23 03:42 10/24/23 03:42 Labs: Abnormal Lab Results - Last 24 Hours (Table) 10/21/23 10/21/23 Range/Units 05:18 05:18 WBC 3.87 L (4.50-10.00) X 10*3/uL RBC 3.55 L (4.40-5.60) X 10*6/uL Hgb 11.6 L (13.0-17.0) g/dL Hct 34.2 L (39.6-50.0) % MCH 32.7 H (27.0-32.0) pg ALT 8 L (10-49) U/L Total Protein 5.0 L (6.2-8.2) g/dL Albumin 3.4 L (3.8-4.9) g/dL
--- NOTE | 2023-10-23 01:24 | P.PN ---
Subjective Progress Note Date: 10/22/23 Patient seen and evaluated at bedside. Patient doing well, tolerating diet, denies nausea, vomiting, fevers, chills. Objective - Vital Signs Vital signs: Vital Signs Temp 98.1 F 10/22/23 19:57 Pulse 72 10/22/23 19:57 Resp 17 10/22/23 13:59 BP 103/46 10/22/23 21:00 Pulse Ox 94 L 10/22/23 19:57 FiO2 Intake & Output 10/22/23 10/22/23 10/23/23 06:59 18:59 06:59 Output Total 425 Balance -425 Output: Urine 425 Other: Voiding Method Indwelling Catheter Indwelling Catheter # Voids 1 # Bowel Movements 1 - Exam gen; nad cv: rrr' pul: non labored breathing abd: soft, non distended, no guarding, surgical incision c/d/i - Labs CBC & Chem 7: 10/22/23 08:13 10/22/23 08:13 Labs: Abnormal Lab Results - Last 24 Hours (Table) 10/22/23 10/22/23 Range/Units 08:13 08:13 RBC 3.58 L (4.30-5.90) m/uL Hgb 12.2 L (13.0-17.5) gm/dL Hct 35.6 L (39.0-53.0) % Sodium 136 L (137-145) mmol/L BUN 22 H (9-20) mg/dL Total Bilirubin 1.8 H (0.2-1.3) mg/dL Total Protein 5.4 L (6.3-8.2) g/dL Albumin 3.2 L (3.5-5.0) g/dL Assessment and Plan Assessment: 77 yo male s/p paraesphageal hernia repair -advance diet -encourage ambulation -encourage incentive spirometer Time with Patient: Less than 30
[2023-10-23] MEDS: MAG HYDROX/AL HYDROX/SIMETH 30 ML, HYOSCYAMINE ELIXIR 10 ML, LIDOCAINE VISCOUS 2% 10 ML PO ONE (09:35)
[2023-10-23 10:05] LABS: HCT 32.8 % (39.6-50.0); MCH 32.6 pg (27.0-32.0); MCHC 33.5 g/dL (32.0-37.0); MCV 97.3 FL (80.0-97.0); Mean Platelet Volume 11.3 FL (9.5-12.2); NRBC Per 100 WBC 0 X 10*3/uL (0.00-0.01); Platelet Count 180 X 10*3/uL (140-440); RBC 3.37 X 10*6/uL (4.40-5.60); RDW 12.7 % (11.5-14.5); WBC 4.27 X 10*3/uL (4.50-10.00)
[2023-10-23 10:35] LABS: BUN/Creat Ratio 19.18 Ratio (12.00-20.00); Blood Urea Nitrogen 21.1 mg/dL (9.0-27.0); Glucose 80 mg/dL (70-110); Magnesium 1.8 mg/dL (1.5-2.4)
[2023-10-23 10:36] LABS: ALT 7 U/L (10-49); AST 22 U/L (14-35); Albumin 3.1 g/dL (3.8-4.9); Albumin/Globulin Ratio 1.82 Ratio (1.60-3.17); Alkaline Phosphatase 77 U/L (41-126); Calcium 8.6 mg/dL (8.7-10.3); Chloride 108 mmol/L (96-109); Globulin 1.7 g/dL (1.6-3.3); Potassium 4.1 mmol/L (3.5-5.5); Sodium 140 mmol/L (135-145); Total Bilirubin 0.8 mg/dL (0.3-1.2); Total Protein 4.8 g/dL (6.2-8.2)
--- NOTE | 2023-10-23 12:43 | P.PN ---
Subjective Progress Note Date: 10/23/23 Principal diagnosis: I reviewed the documentation as provided by the ADITI above, who is the original author of this note. I agree with the documented assessment and plan, with the following changes: none Hospital Course: Patient is a 77-year-old male with a past medical history of Parkinson's disease. He is currently admitted under general surgery team status post paraesophageal hernia repair completed 10/18/2023. Surgical procedure was completed by Dr. Jaramillo. We were consulted for medical management throughout hospitalization. Physical exam: Patient was seen and fully evaluated at bedside. He is postoperative day 5 and continues to do well at this time. He was advanced to full liquid diet this morning and tolerating well. He denies having any nausea, vomiting, or any other complaints at this time. He does report a little bit of acid reflux after breakfast. Patient given a GI cocktail and will monitor patient continues to have reflux or experiences any episodes of nausea will decrease diet back to clear liquids and notify general surgery at that time. Vital signs reviewed and stable. General: Nontoxic, no distress and appears stated age. Derm: Skin warm and dry, normal coloration for ethnicity. Head: Atraumatic, normocephalic and symmetric. Eyes: EOMs intact, no lid lag, and anicteric sclera Mouth: no lip lesions, mucus membranes moist Cardiovascular: regular rate and rhythm with normal S1S2, systolic murmur, positive posterior tibial pulses bilaterally, and cap refill < 2 seconds. Lungs: Respirations even, regular, and unlabored on room air. Lungs CTA bilaterally, no rhonchi, no rales, no wheezing, and no accessory muscle usage. Abdominal: soft, nontender to palpation, no guarding, no appreciable organomegaly. Laparoscopic incisions to abdomen intact. Ext: Movement and sensation intact. No gross muscle atrophy, no edema, no contractures Neuro: Speech clear, face symmetrical and CN II-XII grossly intact with no noted focal neuro deficits Psych: Alert and oriented to person, place, time, and situation. Appropriate and pleasant affect. Assessment and Plan of Care: Postoperative pain Status post paraesophageal hernia repair -Management per primary admitting general surgery team including DVT prophylaxis, wound/dressing management, advancement of diet, and pain management. -Continue telemetry monitoring -Continue to encourage use of incentive spirometry -Symptomatic care and pain management. -PT/OT following Postoperative urinary retention Hematuria, secondary to urogenital trauma from patient pulling out Lawrence -Continue Flomax 0.4 mg daily. -Continue management/care of Lawrence catheter -Urology consulted Secondary to urogenital trauma from pulling out Lawrence and now with gross hematuria, appreciate recommendation -Bladder ultrasound showing bladder is distended with internal debris's likely representing blood product, with concerns of urinary outlet obstruction. -Strict I's and O's. Urinary output over the past 24 hours documented 1325 cc. Parkinson's disease -Patient to continue daily medication regimen with carbidopa levodopa 50-200 mg tablets 3 times daily. Anxiety with depression -Continue daily medication regimen with BuSpar 7.5 mg twice daily, Prozac 20 mg daily, and Zyprexa 5 mg nightly. Data and imaging reviewed: Labs reviewed. CBC showing bicytopenia with WBC count of 4.27 and hemoglobin of 11.0. BMP revealing mild hypocarbia with bicarb of 21 otherwise normal findings. Magnesium 1.8. Liver profile showing hypoalbuminemia with albumin of 3.1. Vital signs reviewed. Blood pressure 123/58, heart rate 65, respiratory rate 16, temp 98.3 F, and SpO2 of 93% on room air. Thank you for allowing us to participate in the care of this pleasant patient. Do not hesitate to contact us with questions. Someone can be reached from the [facility] hospitalist group all hours of the day at [phone] or via perfect serve. Patient was seen independently by Nurse Practitioner. This document was prepared using [employer] dictation software. Please allow for errors in sem manager while rare they do occur. Objective - Vital Signs Vital signs: Vital Signs Temp 98.3 F 10/23/23 07:29 Pulse 65 10/23/23 07:29 Resp 16 10/23/23 07:29 BP 123/58 10/23/23 07:29 Pulse Ox 93 L 10/23/23 07:29 FiO2 Intake & Output 10/22/23 10/23/23 10/23/23 18:59 06:59 18:59 Output Total 800 Balance -800 Output: Urine 800 Other: Voiding Method Indwelling Catheter # Voids 1 # Bowel Movements 1 - Labs CBC & Chem 7: 10/24/23 03:42 10/24/23 03:42
--- NOTE | 2023-10-23 13:28 | P.PN ---
Subjective Progress Note Date: 10/23/23 CHIEF COMPLAINT: Paraesophageal hiatal hernia HISTORY OF PRESENT ILLNESS: The patient is a 77-year-old male status post repair paraesophageal hiatal hernia. He is lying in bed. He reports no one will help him get out of bed. Additionally, he has straws at bedside contraindicated for his type of surgery. Otherwise no abdominal pain. Patient had a massive large bowel movement yesterday ROS: No reports of nausea and vomiting. No fevers or chills. No new chest pain. No productive sputum PHYSICAL EXAM: VITAL SIGNS: Reviewed CONSTITUTIONAL: Well developed and in no acute distress. EYES: Conjuctivae without sclera icterus. Extraocular movements grossly intact. HEAD, EARS, NOSE, THROAT: Moist buccal mucosa. Head is atraumatic, normocephalic. Hears conversational speech. No nasal drainage. RESPIRATORY: Non-labored respirations and equal bilateral excursions. CARDIOVASCULAR: Palpable 2+ radial pulses. ABDOMEN: Incisions intact. MUSCULOSKELETAL: No gross deformity of the lower extremities noted. No clubbing. No cyanosis. SKIN: Good skin turgor. Well perfused. NEUROLOGIC: Cranial nerves II through XII grossly intact. No focal or lateralizing signs. PSYCH: Alert to person place time. CLINICAL LABS: Reviewed. Hemoglobin trending downward 12.2-11.0, anemia ASSESSMENT: 1. Paraesophageal hiatal hernia 2. Urinary retention 3. Urogenital trauma due to pulling a Lawrence anemia PLAN: 1. Continue no straws or carbonated beverages 2. Dietary consultation for Lui diet Objective - Vital Signs Vital signs: Vital Signs Temp 98.3 F 10/23/23 07:29 Pulse 65 10/23/23 07:29 Resp 16 10/23/23 07:29 BP 123/58 10/23/23 07:29 Pulse Ox 93 L 10/23/23 12:52 FiO2 Intake & Output 10/22/23 10/23/23 10/23/23 18:59 06:59 18:59 Output Total 800 700 Balance -800 -700 Output: Urine 800 700 Other: Voiding Method Indwelling Catheter # Voids 1 # Bowel Movements 1 - Labs CBC & Chem 7: 10/23/23 03:57 10/23/23 03:57 Labs: Abnormal Lab Results - Last 24 Hours (Table) 07/28/24 07/28/24 Range/Units 03:57 03:57 WBC 4.27 L (4.50-10.00) X 10*3/uL RBC 3.37 L (4.40-5.60) X 10*6/uL Hgb 11.0 L (13.0-17.0) g/dL Hct 32.8 L (39.6-50.0) % MCV 97.3 H (80.0-97.0) FL MCH 32.6 H (27.0-32.0) pg Carbon Dioxide 21.0 L (21.6-31.8) mmol/L Calcium 8.6 L (8.7-10.3) mg/dL ALT 7 L (10-49) U/L Total Protein 4.8 L (6.2-8.2) g/dL Albumin 3.1 L (3.8-4.9) g/dL
[2023-10-24 04:10] LABS: HCT 34.1 % (39.0-53.0); HGB 11.6 gm/dL (13.0-17.5); MCH 33.3 pg (25.0-35.0); MCHC 34.1 g/dL (31.0-37.0); MCV 97.6 fL (80.0-100.0); Mean Platelet Volume 8.2; Platelet Count 187 k/uL (150-450); RDW 12.6 % (11.5-15.5); WBC 3.5 k/uL (3.8-10.6)
[2023-10-24 05:06] LABS: ALT <6 U/L (4-49); AST 24 U/L (17-59); African American GFR (CKD) >90 (>60 ml/min/1.73 sqM); Albumin 2.7 g/dL (3.5-5.0); Albumin/Globulin Ratio 1.4; Alkaline Phosphatase 81 U/L (38-126); Anion Gap 3 mmol/L; Blood Urea Nitrogen 18 mg/dL (9-20); Carbon Dioxide 24 mmol/L (22-30); Chloride 110 mmol/L (98-107); Glucose 100 mg/dL (74-99); Magnesium 1.7 mg/dL (1.6-2.3); Non-African American GFR(CKD) 81 (>60 ml/min/1.73 sqM); Potassium 3.9 mmol/L (3.5-5.1); Sodium 137 mmol/L (137-145); Total Bilirubin 0.6 mg/dL (0.2-1.3); Total Protein 4.7 g/dL (6.3-8.2)
--- NOTE | 2023-10-24 15:20 | P.PN ---
Subjective Progress Note Date: 10/24/23 CHIEF COMPLAINT: Large paraesophageal hiatal HISTORY OF PRESENT ILLNESS: Patient postop day #3 status post laparoscopic repair of a large paraesophageal hiatal hernia with intrathoracic stomach with mesh. Patient is tolerating the full liquids. He denies any difficulty swallowing. He is having flatus. He has a Lawrence catheter in place due to urinary retention. Afebrile. WBC 3.5 Hgb 11.6 PHYSICAL EXAM: VITAL SIGNS: Reviewed. GENERAL: no acute distress. ABDOMEN: Soft. Mildly distended tenderness at incision sites. Incisions clean dry and intact NEUROLOGIC: Alert and oriented. Cranial nerves II through XII grossly intact. ASSESSMENT: 1. 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 Urinary retention PLAN: -Continue full liquid diet with no straws or carbonated beverages -Discontinue Lawrence catheter in AM -Anticipate possible discharge tomorrow -Discontinue IV fluids -Encourage patient to increase activity level -DVT prophylaxis Lovenox and GI prophylaxis Protonix Physician Endoscopy Tech note has been reviewed by physician. Signing provider agrees with the documented findings, assessment, and plan of care. Objective - Vital Signs Vital signs: Vital Signs Temp 98.0 F 10/24/23 06:40 Pulse 67 10/24/23 06:40 Resp 16 10/24/23 06:40 BP 111/59 10/24/23 06:40 Pulse Ox 93 L 10/24/23 06:40 FiO2 Intake & Output 10/23/23 10/24/23 10/24/23 18:59 06:59 18:59 Output Total 2100 1400 1000 Balance -2100 -1400 -1000 Output: Urine 2100 1400 1000 Other: Voiding Method Indwelling Catheter Indwelling Catheter # Bowel Movements 1 - Labs CBC & Chem 7: 10/24/23 03:42 10/24/23 03:42 Labs: Abnormal Lab Results - Last 24 Hours (Table) 10/24/23 10/24/23 Range/Units 03:42 03:42 WBC 3.5 L (3.8-10.6) k/uL RBC 3.50 L (4.30-5.90) m/uL Hgb 11.6 L (13.0-17.5) gm/dL Hct 34.1 L (39.0-53.0) % Chloride 110 H (98-107) mmol/L Glucose 100 H (74-99) mg/dL Total Protein 4.7 L (6.3-8.2) g/dL Albumin 2.7 L (3.5-5.0) g/dL
--- NOTE | 2023-10-24 15:47 | P.PN ---
Subjective Progress Note Date: 10/24/23 Principal diagnosis: I reviewed the documentation as provided by the ADITI above, who is the original author of this note. I agree with the documented assessment and plan, with the following changes: none Hospital Course: Patient is a 77-year-old male with a past medical history of Parkinson's disease. He is currently admitted under general surgery team status post paraesophageal hernia repair completed 10/18/2023. Surgical procedure was completed by Dr. Jaramillo. We were consulted for medical management throughout hospitalization. Physical exam: Patient was seen and fully evaluated at bedside. He is postoperative day 6 and continues to do well at this time. He is tolerating a full liquid diet and denies any nausea or vomiting. Patient reports controlled postoperative pain at this time. Vital signs reviewed and stable. General: Nontoxic, no distress and appears stated age. Derm: Skin warm and dry, normal coloration for ethnicity. Head: Atraumatic, normocephalic and symmetric. Eyes: EOMs intact, no lid lag, and anicteric sclera Mouth: no lip lesions, mucus membranes moist Cardiovascular: regular rate and rhythm with normal S1S2, systolic murmur, positive posterior tibial pulses bilaterally, and cap refill < 2 seconds. Lungs: Respirations even, regular, and unlabored on room air. Lungs CTA bilaterally, no rhonchi, no rales, no wheezing, and no accessory muscle usage. Abdominal: soft, nontender to palpation, no guarding, no appreciable organomegaly. Laparoscopic incisions to abdomen intact. Ext: Movement and sensation intact. No gross muscle atrophy, no edema, no contractures Neuro: Speech clear, face symmetrical and CN II-XII grossly intact with no noted focal neuro deficits Psych: Alert and oriented to person, place, time, and situation. Appropriate and pleasant affect. Assessment and Plan of Care: Postoperative pain, controlled Status post paraesophageal hernia repair -Management per primary admitting general surgery team including DVT prophylaxis, wound/dressing management, advancement of diet, and pain management. -Continue telemetry monitoring -Continue to encourage use of incentive spirometry -Symptomatic care and pain management. -PT/OT following Postoperative urinary retention Hematuria, secondary to urogenital trauma from patient pulling out Lawrence -Continue Flomax 0.4 mg daily. -Continue management/care of Lawrence catheter -Urology consulted Secondary to urogenital trauma from pulling out Lawrence and now with gross hematuria, appreciate recommendation -Bladder ultrasound showing bladder is distended with internal debris's likely representing blood product, with concerns of urinary outlet obstruction. -Strict I's and O's. Urinary output over the past 24 hours documented 1325 cc. Parkinson's disease -Patient to continue daily medication regimen with carbidopa levodopa 50-200 mg tablets 3 times daily. Anxiety with depression -Continue daily medication regimen with BuSpar 7.5 mg twice daily, Prozac 20 mg daily, and Zyprexa 5 mg nightly. Data and imaging reviewed: Labs reviewed. CBC showing bicytopenia with WBC count of 3.5 and hemoglobin of 11.6. BMP revealing mild hyperchloremia with chloride of 110 otherwise normal findings. Blood glucose 100. Liver profile unremarkable with the exception of hypoalbuminemia with albumin of 2.7. Vital signs reviewed. Blood pressure 111/59, heart rate 67, respiratory rate 16, temp 98.0 F, and SpO2 of 93% on room air. Thank you for allowing us to participate in the care of this pleasant patient. Do not hesitate to contact us with questions. Someone can be reached from the [facility] hospitalist group all hours of the day at [phone] or via [employer] serve. Patient was seen independently by Nurse Practitioner. This document was prepared using [employer] dictation software. Please allow for errors in four roll calender operator while rare they do occur. I reviewed the documentation as provided by the ADITI above, who is the original author of this note. I agree with the documented assessment and plan, with the following changes: none Objective - Vital Signs Vital signs: Vital Signs Temp 98.0 F 10/24/23 06:40 Pulse 67 10/24/23 06:40 Resp 16 10/24/23 06:40 BP 111/59 10/24/23 06:40 Pulse Ox 93 L 10/24/23 06:40 FiO2 Intake & Output 10/23/23 10/24/23 10/24/23 18:59 06:59 18:59 Output Total 2100 1400 Balance -2099 -1400 Output: Urine 2100 1400 Other: Voiding Method Indwelling Catheter - Labs CBC & Chem 7: 10/24/23 03:42 10/24/23 03:42 Labs: Abnormal Lab Results - Last 24 Hours (Table) 10/23/23 10/23/23 10/24/23 Range/Units 03:57 03:57 03:42 WBC 4.27 L 3.5 L (4.50-10.00) X 10*3/uL RBC 3.37 L 3.50 L (4.40-5.60) X 10*6/uL Hgb 11.0 L 11.6 L (13.0-17.0) g/dL Hct 32.8 L 34.1 L (39.6-50.0) % MCV 97.3 H (80.0-97.0) FL MCH 32.6 H (27.0-32.0) pg Chloride (98-107) mmol/L Carbon Dioxide 21.0 L (21.6-31.8) mmol/L Glucose (74-99) mg/dL Calcium 8.6 L (8.7-10.3) mg/dL ALT 7 L (10-49) U/L Total Protein 4.8 L (6.2-8.2) g/dL Albumin 3.1 L (3.8-4.9) g/dL 10/24/23 Range/Units 03:42 WBC (4.50-10.00) X 10*3/uL RBC (4.40-5.60) X 10*6/uL Hgb (13.0-17.0) g/dL Hct (39.6-50.0) % MCV (80.0-97.0) FL MCH (27.0-32.0) pg Chloride 110 H (98-107) mmol/L Carbon Dioxide (21.6-31.8) mmol/L Glucose 100 H (74-99) mg/dL Calcium (8.7-10.3) mg/dL ALT (10-49) U/L Total Protein 4.7 L (6.2-8.2) g/dL Albumin 2.7 L (3.8-4.9) g/dL
[2023-10-25 07:30] VITALS: RESP 17
[2023-10-25 08:49] LABS: HCT 32.2 % (39.6-50.0); HGB 11.2 g/dL (13.0-17.0); MCH 32.8 pg (27.0-32.0); MCHC 34.8 g/dL (32.0-37.0); MCV 94.4 FL (80.0-97.0); Mean Platelet Volume 11.3 FL (9.5-12.2); NRBC Per 100 WBC 0 X 10*3/uL (0.00-0.01); Platelet Count 197 X 10*3/uL (140-440); RBC 3.41 X 10*6/uL (4.40-5.60); RDW 12.4 % (11.5-14.5); WBC 4.07 X 10*3/uL (4.50-10.00)
[2023-10-25 09:24] LABS: Magnesium 1.8 mg/dL (1.5-2.4)
[2023-10-25 10:35] LABS: ALT 12 U/L (10-49); AST 31 U/L (14-35); Albumin 3.2 g/dL (3.8-4.9); Albumin/Globulin Ratio 1.88 Ratio (1.60-3.17); Alkaline Phosphatase 92 U/L (41-126); Blood Urea Nitrogen 12.3 mg/dL (9.0-27.0); Carbon Dioxide 24.5 mmol/L (21.6-31.8); Chloride 108 mmol/L (96-109); Globulin 1.7 g/dL (1.6-3.3); Glucose 121 mg/dL (70-110); Potassium 3.7 mmol/L (3.5-5.5); Sodium 142 mmol/L (135-145); Total Bilirubin 0.3 mg/dL (0.3-1.2); Total Protein 4.9 g/dL (6.2-8.2)
--- NOTE | 2023-10-25 13:02 | P.DS ---
Providers Date of admission: 10/21/23 13:39 Expected date of discharge: 10/25/23 Attending physician: Gera Jaramillo Consults: 10/18/23 11:35 Consult Physician Routine Consulting Provider: Clive Borja Consult Reason/Comments: Medical management Do you want consulting provider notified?: Yes 10/21/23 11:09 Consult Physician Urgent Consulting Provider: Jackson Kimbrough Consult Reason/Comments: hematuria with large clots, urinary retention Do you want consulting provider notified?: Yes Primary care physician: Stated None Hospital Course: Discharge diagnosis 1. Large paraesophageal hiatal hernia with intrathoracic 2. Urinary retention Hospital course This is a 77-year-old male with a large paraesophageal hiatal hernia. He is status post repair of large paraesophageal hiatal hernia with intrathoracic stomach with mesh. Patient is tolerating diet. His pain is controlled. He has been up and ambulating. Patient did have urinary retention during this admis manuela. Lawrence catheter removed. Patient will undergo voiding trial before discharge. If still having urinary retention Lawrence catheter will be reinserted before discharge. Patient is afebrile. He is stable for discharge. Please refer to chart for any further details. Physician Pattern Drafter note has been reviewed by physician. Signing provider agrees with the documented findings, assessment, and plan of care. Patient Condition at Discharge: Stable Plan - Discharge Summary Discharge Rx Participant: Yes New Discharge Prescriptions: New traMADol HCl [Ultram] 50 mg PO Q6HR PRN 3 Days #12 tab PRN Reason: Pain Continue Pramipexole [Mirapex] 0.25 mg PO BID@0800,2000 FLUoxetine HCL [PROzac] 20 mg PO QAM Multivitamins, Thera [Multivitamin (formulary)] 1 each PO DAILY@1200 #30 tab busPIRone HCL [Buspar] 7.5 mg PO BID Carbidopa-Levodopa ER 50-200Mg [Sinemet CR 50-200 mg] 1 tab PO TID@0800,1300,1800 OLANZapine [ZyPREXA] 5 mg PO HS@2000 Folic Acid 1 mg PO DAILY@1200 #30 tab Acetaminophen Tab [Tylenol] 650 mg PO Q6HR PRN tab PRN Reason: Mild Pain Or Fever > 100.5 Thiamine [Vitamin B-1] 100 mg PO BID-W/MEALS #60 tab Discharge Medication List Carbidopa-Levodopa ER 50-200Mg [Sinemet CR 50-200 mg] 1 tab PO TID@0800 ,1300,1800 08/21/23 [History] Pramipexole [Mirapex] 0.25 mg PO BID@0800,199908/21/23 [History] FLUoxetine HCL [PROzac] 20 mg PO QAM 09/21/23 [History] OLANZapine [ZyPREXA] 5 mg PO HS@199909/21/23 [History] Acetaminophen Tab [Tylenol] 650 mg PO Q6HR PRN tab 09/26/23 [Rx] Folic Acid 1 mg PO DAILY@1200 #30 tab 09/26/23 [Rx] Multivitamins, Thera [Multivitamin (formulary)] 1 each PO DAILY@1200 #30 tab 09/26/23 [Rx] Thiamine [Vitamin B-1] 100 mg PO BID-W/MEALS #60 tab 09/26/23 [Rx] busPIRone HCL [Buspar] 7.5 mg PO BID 10/14/23 [History] traMADol HCl [Ultram] 50 mg PO Q6HR PRN 3 Days #12 tab 10/20/23 [Rx] Follow up Appointment(s)/Referral(s): Brittany Engel III, MD [STAFF PHYSICIAN] - 1-2 Days (schedule appointment to establish care with PCP for f/u discharge ) Gera Jaramillo MD [STAFF PHYSICIAN] - 10/27/23 2:50 pm Activity/Diet/Wound Care/Special Instructions: No driving while taking Ultram No lifting over 10 pounds Shower daily. No soaking or tub baths for 2 weeks Very light activity until you are reevaluated at your follow up appointment with your surgeon No straws or carbonated beverages Stay on a full liquid diet for the next 2 weeks Discharge Disposition: HOME SELF-CARE
[2023-10-25 14:40] VITALS: BP 107/57; PULSE 71; TEMP 97.4
--- NOTE | 2023-10-25 15:49 | P.PN ---
Subjective Progress Note Date: 10/25/23 Hospital Course: Patient is a 77-year-old male with a past medical history of Parkinson's disease. He is currently admitted under general surgery team status post paraesophageal hernia repair completed 10/18/2023. Surgical procedure was completed by Dr. Jaramillo. We were consulted for medical management throughout hospitalization. Physical exam: Patient was seen and fully evaluated at bedside. He is postoperative day 7 and continues to do well at this time. He is tolerating a full liquid diet and denies any nausea or vomiting. Patient reports controlled postoperative pain at this time and denies having any other complaints or concerns. Vital signs reviewed and stable. General: Nontoxic, no distress and appears stated age. Derm: Skin warm and dry, normal coloration for ethnicity. Head: Atraumatic, normocephalic and symmetric. Eyes: EOMs intact, no lid lag, and anicteric sclera Mouth: no lip lesions, mucus membranes moist Cardiovascular: regular rate and rhythm with normal S1S2, systolic murmur, positive posterior tibial pulses bilaterally, and cap refill < 2 seconds. Lungs: Respirations even, regular, and unlabored on room air. Lungs CTA bilaterally, no rhonchi, no rales, no wheezing, and no accessory muscle usage. Abdominal: soft, nontender to palpation, no guarding, no appreciable o rganomegaly. Laparoscopic incisions to abdomen intact. Ext: Movement and sensation intact. No gross muscle atrophy, no edema, no contractures Neuro: Speech clear, face symmetrical and CN II-XII grossly intact with no noted focal neuro deficits Psych: Alert and oriented to person, place, time, and situation. Appropriate and pleasant affect. Assessment and Plan of Care: Postoperative pain, controlled Status post paraesophageal hernia repair -Management per primary admitting general surgery team including DVT p rophylaxis, wound/dressing management, advancement of diet, and pain management. -Continue telemetry monitoring -Continue to encourage use of incentive spirometry -Symptomatic care and pain management. -PT/OT following Postoperative urinary retention Hematuria, secondary to urogenital trauma from patient pulling out Lawrence -Continue Flomax 0.4 mg daily. -Continue management/care of Lawrence catheter -Urology consulted Secondary to urogenital trauma from pulling out Lawrence and now with gross hematuria, appreciate recommendation -Bladder ultrasound showing bladder is distended with internal debris's likely representing blood product, with concerns of urinary outlet obstruction. -Strict I's and O's. Urinary output over the past 24 hours documented 1325 cc. Parkinson's disease -Patient to continue daily medication regimen with carbidopa levodopa 50-200 mg tablets 3 times daily. Anxiety with depression -Continue daily medication regimen with BuSpar 7.5 mg twice daily, Prozac 20 mg daily, and Zyprexa 5 mg nightly. Data and imaging reviewed: Labs reviewed. 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 BMP unremarkable. Blood glucose 121. Liver profile unremarkable with the exception of hypoalbuminemia with albumin of 3.2. Vital signs reviewed. Blood pressure 116/65, heart rate 67, respiratory rate 17, temp 97.9 F, and SpO2 of 95% on room air Thank you for allowing us to participate in the care of this pleasant patient. Do not hesitate to contact us with questions. Someone can be reached from the [facility] hospitalist group all hours of the day at [phone] or via perfect serve. Patient was seen independently by Nurse Practitioner. This document was prepared using [employer] dictation software. Please allow for errors in shrink pit operator while rare they do occur. Jamie Cotter NP rendered care for this patient independently, reviewed the findin gs and plan as documented in the note above. I did not physically speak with or examine the patient on this date. Objective - Vital Signs Vital signs: Vital Signs Temp 97.9 F 10/25/23 06:53 Pulse 67 10/25/23 06:53 Resp 17 10/25/23 06:53 BP 116/65 10/25/23 06:53 Pulse Ox 95 10/25/23 06:53 FiO2 Intake & Output 10/24/23 10/25/23 10/25/23 18:59 06:59 18:59 Output Total 1450 Balance -1450 Weight 63.4 kg Output: Urine 1450 Other: Voiding Method Indwelling Catheter Indwelling Catheter # Bowel Movements 2 - Labs CBC & Chem 7: 10/25/23 03:53 10/25/23 03:53
== END 2023-10-25 16:04 | disposition home or self-care (01) | DRG 982 ==
LOC: OR 09:14 → 4SSUR 11:33 → OR 10-21 13:39 → 4SSUR 10-21 13:39
PROVIDERS: ADMIT Surgery; ATTEND Surgery
PROC: 8E0W4CZ Robotic Assisted Procedure of Trunk Region, Percutaneous Endoscopic Approach (ICD-10-PCS; 2023-10-18)
PROC: 0BUT4JZ Supplement Diaphragm with Synthetic Substitute, Percutaneous Endoscopic Approach (ICD-10-PCS; principal; 2023-10-18 10:35)
DX: R33.8 Other retention of urine (principal); D62 Acute posthemorrhagic anemia; S37.39XA Other injury of urethra, initial encounter; T83.83XA Hemorrhage due to genitourinary prosthetic devices, implants and grafts, initial encounter; K44.9 Diaphragmatic hernia without obstruction or gangrene; R31.0 Gross hematuria; G20.A1 Parkinson's disease without dyskinesia, without mention of fluctuations; F41.8 Other specified anxiety disorders; Z87.891 Personal history of nicotine dependence; Z79.899 Other long term (current) drug therapy
CPT/HCPCS: 76770; 80053; 83735; 85027; 93005; 94760

== ENCOUNTER 2024-08-28 22:49 | Emergency (ER) | payer MEDICARE ==
--- NOTE | 2024-08-28 23:50 | ED ---
General Adult HPI - General Chief complaint: Neuro Symptoms/Deficit Stated complaint: Low blood pressure Time Seen by Provider: 08/28/24 23:10 Source: EMS Mode of arrival: EMS Limitations: no limitations - History of Present Illness Initial comments: This patient is an 78-year-old man with history of Parkinson's and previous hypotension being treated with midodrine, who is sent over from his long-term care facility to have evaluation for low blood pressure. The patient arrives with a written note that the patient at the nightly blood pressure check was found to have pressure of 82/90. The patient had repeat blood pressures between 730 and 1030 which were in the 80s and 90s over 40s and 50s. The patient was given 2 doses of midodrine 5 mg each and the blood pressure will remain in that same range. The patient then sent to have further evaluation. On arrival, the patient denying complaints -: hour(s) Severity scale (1-10): 0 Consistency: constant Improves with: none Worsens with: none Associated Symptoms: denies other symptoms Treatments Prior to Arrival: none - Related Data Home Medications Medication Instructions Recorded Confirmed Carbidopa-Levodopa ER 50-200Mg 1 tab PO QID@08,12,16,20 08/21/23 08/24/24 [Sinemet CR 50-200 mg] Pramipexole [Mirapex] 0.25 mg PO TID@1000,1400,1800 08/21/23 08/24/24 busPIRone HCL [Buspar] 7.5 mg PO BID@0800,199910/14/23 08/24/24 Cholecalciferol (Vitamin D3) 1,250 mcg PO MO 08/24/24 08/24/24 [Vitamin D3 (1250 Mcg = 50,000 Iu)] Midodrine [ProAmatine] 5 mg PO TID@0800,1400,199908/24/24 08/24/24 Sertraline [Zoloft] 25 mg PO DAILY@0800 08/24/24 08/24/24 Tamsulosin [Flomax] 0.4 mg PO DAILY@0800 08/24/24 08/24/24 Allergies Allergy/AdvReac Type Severity Reaction Status Date / Time No Known Allergies Allergy Verified 08/28/24 23:17 Review of Systems ROS Statement: Those systems with pertinent positive or pertinent negative responses have been documented in the HPI. ROS Other: All systems not noted in ROS Statement are negative. Constitutional: Denies: fever, weakness Eyes: Denies: vision change Respiratory: Denies: cough, dyspnea Cardiovascular: Denies: chest pain, syncope Gastrointestinal: Denies: abdominal pain, vomiting Neurological: Denies: headache Past Medical History Additional Past Medical History / Comment(s): Parkinson's, hiatal hernia History of Any Multi-Drug Resistant Organisms: None Reported Past Surgical History: Tonsillectomy Additional Past Surgical History / Comment(s): hernia repair 2023 Past Anesthesia/Blood Transfusion Reactions: No Reported Reaction Past Psychological History: Anxiety, Depression Smoking Status: Former smoker Past Alcohol Use History: None Reported Past Drug Use History: None Reported General Exam General appearance: alert, in no apparent distress Head exam: Present: atraumatic, normocephalic Eye exam: Present: normal appearance. Absent: scleral icterus, conjunctival injection Neck exam: Present: normal inspection Respiratory exam: Present: normal lung sounds bilaterally. Absent: respiratory distress, wheezes, rales, rhonchi, stridor, accessory muscle use Cardiovascular Exam: Present: bradycardia, normal heart sounds. Absent: systolic murmur, diastolic murmur, rubs, gallop GI/Abdominal exam: Present: soft. Absent: distended, tenderness, guarding, rebound, rigid, mass Extremities exam: Present: normal inspection, normal capillary refill. Absent: pedal edema, calf tenderness Back exam: Present: normal inspection. Absent: CVA tenderness (R), CVA tenderness (L) Neurological exam: Present: alert. Absent: motor sensory deficit Skin exam: Present: warm, dry, intact, normal color. Absent: rash Course Vital Signs 08/28/24 08/29/24 08/29/24 23:07 00:53 01:00 Temperature 97.8 F Pulse Rate 55 L 52 L 50 L Respiratory 14 16 Rate Blood Pressure 103/60 129/62 109/56 O2 Sat by Pulse 99 100 98 Oximetry 08/29/24 08/29/24 08/29/24 01:59 03:33 05:00 Temperature 97.6 F Pulse Rate 54 L 54 L Respiratory 16 18 Rate Blood Pressure 118/77 118/63 90/57 O2 Sat by Pulse 99 100 Oximetry 08/29/24 08/29/24 06:33 07:53 Temperature 98.4 F 97.7 F Pulse Rate 57 L 65 Respiratory 18 18 Rate Blood Pressure 118/61 101/56 O2 Sat by Pulse 98 97 Oximetry EKG Findings - EKG Results: EKG: interpreted by ERMD, sinus rhythm, normal axis, normal ST/T EKG shows: bradycardia (Rate 51 bpm) - Blocks, [place], Hypertrophy, ST Abn: AV and intraventricular conduction: right bundle branch block (fixed/intermittent, complete/incomplete) Medical Decision Making - Medical Decision Making The patient had chest x-ray that I interpreted as negative for acute infiltrate, pneumothorax, congestive heart failure Was pt. sent in by a medical professional or institution (, PA, BRUSH HOLDER ASSEMBLER, urgent care, hospital, or jail...) When possible be specific @ -[No] Did you speak to anyone other than the patient for history (EMS, parent, family, police, friend...)? What history was obtained from this source @ -[No] Did you review nursing and triage notes (agree or disagree)? Why? @ -[I reviewed and agree with nursing and triage notes] Were old charts reviewed (outside hosp., previous admission, EMS record, old EKG, old radiological studies, urgent care reports/EKG's, jail records)? Report findings @ -[No old charts were reviewed] Differential Diagnosis (chest pain, altered mental status, abdominal pain women, abdominal pain men, vaginal bleeding, weakness, fever, dyspnea, syncope, headache, dizziness, GI bleed, back pain, seizure, CVA, palpatations, mental health, musculoskeletal)? @ -[Differential: Hypoglycemia, shock, sepsis, hyponatremia, anemia, infection, HI, ETOH, adverse medicine reaction, overdose, stroke, this is not meant to be an all-inclusive list. EKG interpreted by me (3pts min.). @ -[I interpreted as above] X-rays interpreted by me (1pt min.). @ -[None done] CT interpreted by me (1pt min.). @ -[None done] U/S interpreted by me (1pt. min.). @ -[None done] What testing was considered but not performed or refused? (CT, X-rays, U/S, labs)? Why? @ -[None] What meds were considered but not given or refused? Why? @ -[None] Did you discuss the management of the patient with other professionals (professionals i.e. , PA, BRUSH HOLDER ASSEMBLER, lab, RT, psych nurse, social science manager, claim examiner, teacher, public health service officer, immigration case worker)? Give summary @ -[No] Was smoking cessation discussed for >3mins.? @ -[No] Was critical care preformed (if so, how long)? @ -[No] Were there social determinants of health that impacted care today? How? (Homelessness, low income, unemployed, alcoholism, drug addiction, transportation, low edu. Level, literacy, decrease access to med. care, alf, rehab)? @ -[No] Was there de-escalation of care discussed even if they declined (Discuss DNR or withdrawal of care, Hospice)? DNR status @ -[No] What co-morbidities impacted this encounter? (DM, HTN, Smoking, COPD, CAD, Cancer, CVA, ARF, Chemo, Hep., AIDS, mental health diagnosis, sleep apnea, morbid obesity)? @ -[None] Was patient admitted / discharged? Hospital course, mention meds given and route, prescriptions, significant lab abnormalities, going to OR and other pertinent info. @ -[Patient is an 78-year-old man with history of Parkinson's disease sent here to have evaluation related to hypotension. The patient's physical exam unremarkable other than for Parkinson's disease and patient may have some mild dehydration. Labs are similar, the patient is given saline bolus. On reevaluation he continues to feel well with no symptoms. At this point patient stable to return to jail as his blood pressure has improved. Undiagnosed new problem with uncertain prognosis? @ -[No] Drug Therapy requiring intensive monitoring for toxicity (Heparin, Nitro, Insulin, Cardizem)? @ -[No] Were any procedures done? @ -[No] Diagnosis/symptom? @ -[Acute hypotension, Acute, or Chronic, or Acute on Chronic? @ -[Acute Uncomplicated (without systemic symptoms) or Complicated (systemic symptoms)? @ -[Uncomplicated Side effects of treatment? @ -[No] Exacerbation, Progression, or Severe Exacerbation? @ -[No] Poses a threat to life or bodily function? How? (Chest pain, [place], HI, pneumonia, PE, COPD, DKA, ARF, appy, cholecystitis, CVA, Diverticulitis, Homicidal, Suicidal, threat to staff... and all critical care pts) @ -[No] All treatments are based on ideal body weight as in ED triage - Lab Data Result diagrams: 08/29/24 00:32 08/29/24 00:32 Lab Results 08/29/24 08/29/24 08/29/24 Range/Units 00:32 00:32 00:32 WBC 5.38 (4.50-10.00) 10*3/uL RBC 3.98 L (4.40-5.60) 10*6/uL Hgb 13.2 (13.0-17.0) g/dL Hct 37.3 L (39.6-50.0) % MCV 93.7 (80.0-97.0) fL MCH 33.2 H (27.0-32.0) pg MCHC 35.4 (32.0-37.0) g/dL Plt Count 227 (140-440) 10*3/uL MPV 11.1 (9.5-12.2) fL Immature Gran % (Auto) 0.4 % Neutrophils % 55.8 % Lymphocytes % 29.2 % Monocytes % 11.0 % Eosinophils % 3.0 % Basophils % 0.6 % Immature Gran # 0.02 (0.00-0.04) 10*3/uL Neutrophils # 3.01 (1.80-7.70) 10*3/uL Lymphocytes # 1.57 (0.90-5.00) 10*3/uL Monocytes # 0.59 (0.20-1.00) 10*3/uL Eosinophils # 0.16 (0.04-0.35) 10*3/uL Basophils # 0.03 (0.00-0.10) 10*3/uL Sodium 137 (137-145) mmol/L Potassium 3.8 (3.5-5.1) mmol/L Chloride 102 (98-107) mmol/L Carbon Dioxide 24 (22-30) mmol/L Anion Gap 11 mmol/L BUN 29 H (9-20) mg/dL Creatinine 1.14 (0.66-1.25) mg/dL Est GFR (CKD-EPI)AfAm 70 (>60 ml/min/1.73 sqM) Est GFR (CKD-EPI)NonAf 61 (>60 ml/min/1.73 sqM) Glucose 90 (74-99) mg/dL Plasma Lactic Acid [place] 1.5 (0.7-2.0) mmol/L Calcium 10.9 H (8.4-10.2) mg/dL Total Bilirubin 0.8 (0.2-1.3) mg/dL AST 21 (17-59) U/L ALT 8 (4-49) U/L Alkaline Phosphatase 83 (38-126) U/L Troponin I (0.000-0.034) ng/mL Total Protein 6.4 (6.3-8.2) g/dL Albumin 3.9 (3.5-5.0) g/dL Urine Color Urine Appearance (Clear) Urine pH (5.0-8.0) Ur Specific [place] (1.001-1.035) Urine Protein (Negative) Urine Glucose (UA) (Negative) Urine Ketones (Negative) Urine Blood (Negative) Urine Nitrite (Negative) Urine Bilirubin (Negative) Urine Urobilinogen (<2.0) mg/dL Ur Leukocyte Esterase (Negative) Urine RBC (0-5) /hpf Urine WBC (0-5) /hpf Ur Squamous Epith Cells (0-4) /hpf Amorphous Sediment (None) /hpf Urine Bacteria (None) /hpf 08/29/24 08/29/24 Range/Units 00:32 04:34 WBC (4.50-10.00) 10*3/uL RBC (4.40-5.60) 10*6/uL Hgb (13.0-17.0) g/dL Hct (39.6-50.0) % MCV (80.0-97.0) fL MCH (27.0-32.0) pg MCHC (32.0-37.0) g/dL Plt Count (140-440) 10*3/uL MPV (9.5-12.2) fL Immature Gran % (Auto) % Neutrophils % % Lymphocytes % % Monocytes % % Eosinophils % % Basophils % % Immature Gran # (0.00-0.04) 10*3/uL Neutrophils # (1.80-7.70) 10*3/uL Lymphocytes # (0.90-5.00) 10*3/uL Monocytes # (0.20-1.00) 10*3/uL Eosinophils # (0.04-0.35) 10*3/uL Basophils # (0.00-0.10) 10*3/uL Sodium (137-145) mmol/L Potassium (3.5-5.1) mmol/L Chloride (98-107) mmol/L Carbon Dioxide (22-30) mmol/L Anion Gap mmol/L BUN (9-20) mg/dL Creatinine (0.66-1.25) mg/dL Est GFR (CKD-EPI)AfAm (>60 ml/min/1.73 sqM) Est GFR (CKD-EPI)NonAf (>60 ml/min/1.73 sqM) Glucose (74-99) mg/dL Plasma Lactic Acid [place] (0.7-2.0) mmol/L Calcium (8.4-10.2) mg/dL Total Bilirubin (0.2-1.3) mg/dL AST (17-59) U/L ALT (4-49) U/L Alkaline Phosphatase (38-126) U/L Troponin I <0.012 (0.000-0.034) ng/mL Total Protein (6.3-8.2) g/dL Albumin (3.5-5.0) g/dL Urine Color Yellow Urine Appearance Turbid (Clear) Urine pH 8.0 (5.0-8.0) Ur Specific [place] 1.021 (1.001-1.035) Urine Protein Negative (Negative) Urine Glucose (UA) Negative (Negative) Urine Ketones 1+ H (Negative) Urine Blood Negative (Negative) Urine Nitrite Negative (Negative) Urine Bilirubin Negative (Negative) Urine Urobilinogen 3.0 (<2.0) mg/dL Ur Leukocyte Esterase Trace H (Negative) Urine RBC 5 (0-5) /hpf Urine WBC 8 H (0-5) /hpf Ur Squamous Epith Cells 1 (0-4) /hpf Amorphous Sediment Rare H (None) /hpf Urine Bacteria Rare H (None) /hpf Disposition Clinical Impression: Hypotension Disposition: HOME SELF-CARE Condition: Good Instructions (If sedation given, give patient instructions): Hypotension (ED) Is patient prescribed a controlled substance at d/c from ED?: No Referrals: Manuel Fredercik MD [Primary Care Provider] - 1-2 days
[2024-08-29 00:39] LABS: Basophils # (A) 0.03 10*3/uL (0.00-0.10); Basophils % (A) 0.6 %; Eosinophils # (A) 0.16 10*3/uL (0.04-0.35); HCT 37.3 % (39.6-50.0); HGB 13.2 g/dL (13.0-17.0); Lymphocytes # (A) 1.57 10*3/uL (0.90-5.00); Lymphocytes % (A) 29.2 %; MCH 33.2 pg (27.0-32.0); MCHC 35.4 g/dL (32.0-37.0); MCV 93.7 fL (80.0-97.0); Mean Platelet Volume 11.1 fL (9.5-12.2); Monocytes # (A) 0.59 10*3/uL (0.20-1.00); Neutrophils # (A) 3.01 10*3/uL (1.80-7.70); Neutrophils % (A) 55.8 %; Platelet Count 227 10*3/uL (140-440); RBC 3.98 10*6/uL (4.40-5.60); RDW 13.2 % (11.5-14.5); WBC 5.38 10*3/uL (4.50-10.00)
--- NOTE | 2024-08-29 00:39 | XR ---
EXAM: XR Chest, 1 View CLINICAL HISTORY: ITS.REASON XR Reason: hypotension TECHNIQUE: Frontal view of the chest. COMPARISON: 08/24/2024 FINDINGS: Lungs: No consolidation. Pleural space: No significant pleural effusion. No pneumothorax. Heart: No cardiomegaly or pulmonary vascular congestion. Bones/joints: No acute fracture. No dislocation. IMPRESSION: No evidence of acute cardiopulmonary disease.
[2024-08-29] MEDS: SODIUM CHLORIDE 0.9% 1,000 ML IV STA (01:06)
[2024-08-29] MEDS: SODIUM CHLORIDE 0.9% 500 ML 500 ML IV STA ×2 (01:09→06:57)
[2024-08-29 01:20] LABS: ALT 8 U/L (4-49); AST 21 U/L (17-59); African American GFR (CKD) 70 (>60 ml/min/1.73 sqM); Albumin 3.9 g/dL (3.5-5.0); Alkaline Phosphatase 83 U/L (38-126); Anion Gap 11 mmol/L; Blood Urea Nitrogen 29 mg/dL (9-20); Calcium 10.9 mg/dL (8.4-10.2); Carbon Dioxide 24 mmol/L (22-30); Chloride 102 mmol/L (98-107); Glucose 90 mg/dL (74-99); Non-African American GFR(CKD) 61 (>60 ml/min/1.73 sqM); Potassium 3.8 mmol/L (3.5-5.1); Sodium 137 mmol/L (137-145); Total Bilirubin 0.8 mg/dL (0.2-1.3); Total Protein 6.4 g/dL (6.3-8.2)
[2024-08-29 03:36] VITALS: RESP 18
[2024-08-29 05:57] LABS: Amorphous Sediment,Urine Rare /hpf; Appearance,Urine Turbid (Clear); Bacteria,Urine Rare /hpf; Bilirubin,Urine Negative (Negative); Blood,Urine Negative (Negative); Color,Urine Yellow; Glucose,Urine (UA) Negative (Negative); Ketones,Urine 1+ (Negative); Leukocyte Esterase,Urine Trace (Negative); Nitrite,Urine Negative (Negative); Protein,Urine Negative (Negative); RBC,Urine 5 /hpf (0-5); Specific Gravity,Urine 1.021 (1.001-1.035); Squamous Epithelial Cell,Urine 1 /hpf (0-4); WBC,Urine 8 /hpf (0-5)
[2024-08-29] MEDS: MIDODRINE 5 MG TAB PO SCH (07:45)
[2024-08-29 07:55] VITALS: BP 101/56; PULSE 65; TEMP 97.7
== END 2024-08-29 08:34 | disposition home or self-care (01) ==
LOC: EC 22:49
DX: I95.9 Hypotension, unspecified (principal); I45.10 Unspecified right bundle-branch block; R00.1 Bradycardia, unspecified; Z87.891 Personal history of nicotine dependence
CPT/HCPCS: 36415; 51701; 71045; 80053; 81001; 83605; 84484; 85025; 93005; 96360; 96361; 99285

== ENCOUNTER 2024-10-01 02:16 | Inpatient (IN) | payer MEDICARE ==
[2024-10-01 03:08] LABS: Basophils # (A) 0.03 10*3/uL (0.00-0.10); Basophils % (A) 0.5 %; Eosinophils # (A) 0.16 10*3/uL (0.04-0.35); Eosinophils % (A) 2.9 %; HCT 28.7 % (39.6-50.0); Lymphocytes # (A) 1.05 10*3/uL (0.90-5.00); Lymphocytes % (A) 18.7 %; MCH 33.8 pg (27.0-32.0); MCHC 34.1 g/dL (32.0-37.0); Monocytes # (A) 0.60 10*3/uL (0.20-1.00); Monocytes % (A) 10.7 %; Neutrophils # (A) 3.74 10*3/uL (1.80-7.70); Neutrophils % (A) 66.7 %; Platelet Count 197 10*3/uL (140-440); RBC 2.90 10*6/uL (4.40-5.60); RDW 13.8 % (11.5-14.5); WBC 5.61 10*3/uL (4.50-10.00)
[2024-10-01 03:17] LABS: ALT <6 U/L (4-49); AST 18 U/L (17-59); African American GFR (CKD) >90 (>60 ml/min/1.73 sqM); Albumin 2.7 g/dL (3.5-5.0); Alkaline Phosphatase 73 U/L (38-126); Anion Gap 5 mmol/L; Blood Urea Nitrogen 25 mg/dL (9-20); Calcium 8.4 mg/dL (8.4-10.2); Carbon Dioxide 22 mmol/L (22-30); Chloride 110 mmol/L (98-107); Glucose 96 mg/dL (74-99); Non-African American GFR(CKD) 90 (>60 ml/min/1.73 sqM); Potassium 3.6 mmol/L (3.5-5.1); Sodium 137 mmol/L (137-145); Total Protein 4.7 g/dL (6.3-8.2)
[2024-10-01 03:19] LABS: HGB 9.8 g/dL (13.0-17.0)
[2024-10-01 03:20] LABS: MCV 99.0 fL (80.0-97.0)
[2024-10-01] MEDS: MORPHINE SULFATE 4 MG/ML SYRINGE IV STA (03:20)
[2024-10-01 03:30] LABS: INR 1.0 (<1.2); Partial Thromboplastin Time 25.3 sec (22.0-30.0); Prothrombin Time 11.0 sec (10.0-12.5)
[2024-10-01] MEDS: SODIUM CHLORIDE 0.9% 1,000 ML IV STA (03:35)
[2024-10-01] MEDS: SODIUM CHLORIDE 0.9% 500 ML 500 ML IV STA (03:36)
--- NOTE | 2024-10-01 04:01 | XR ---
EXAM: XR Chest, 1 View CLINICAL HISTORY: ITS.REASON XR Reason: surgical clearance TECHNIQUE: Frontal view of the chest. COMPARISON: No relevant prior studies available. FINDINGS: Lungs: Increased interstitial markings. Pleural space: Unremarkable. No pneumothorax. Heart: Cardiomegaly. Mediastinum: Unremarkable. Bones/joints: Unremarkable. IMPRESSION: No acute findings in the chest.
--- NOTE | 2024-10-01 04:12 | XR ---
EXAM: XR Left Hip With Pelvis When Performed, 2 or 3 Views CLINICAL HISTORY: Injury TECHNIQUE: Two or three views of the left hip with pelvis when performed. COMPARISON: No relevant prior studies available. FINDINGS: Bones/joints: Mildly displaced intertrochanteric femoral neck fracture. Moderate degenerative changes of both hips. No dislocation. Soft tissues: Unremarkable. Gastrointestinal tract: Significant stool in the rectal vault is concerning for impaction. IMPRESSION: 1. Mildly displaced intertrochanteric femoral neck fracture. 2. Significant stool in the pelvis is concerning for impaction.
--- NOTE | 2024-10-01 04:29 | CT ---
EXAM: CT Head Without Intravenous Contrast CLINICAL HISTORY: Injury TECHNIQUE: Axial computed tomography images of the head/brain without intravenous contrast. CTDI is 45.2 mGy and DLP is 1074 mGy-cm. This CT exam was performed using one or more of the following dose reduction techniques: automated exposure control, adjustment of the mA and/or kV according to patient size, and/or use of iterative reconstruction technique. COMPARISON: No relevant prior studies available. FINDINGS: Brain: No intracranial hemorrhage, mass-effect or midline shift. No abnormal extra axial fluid. No evidence of acute infarct. 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 There is encephalomalacia of the bilateral frontal, left temporal and left temporal lobes. Ventricles: Unremarkable. No ventriculomegaly. Bones/joints: Unremarkable. No acute fracture. Soft tissues: Unremarkable. Sinuses: Mild mucous in the right maxillary sinuses concerning for acute sinusitis. Mastoid air cells: Unremarkable as visualized. No mastoid effusion. IMPRESSION: 1. Mild mucous in the right maxillary sinuses concerning for acute sinusitis. 2. No acute intracranial finding. EXAM: CT Cervical Spine Without Intravenous Contrast CLINICAL HISTORY: Injury TECHNIQUE: Axial computed tomography images of the cervical spine without intravenous contrast. CTDI is 8.7 mGy and DLP is 284.1 mGy-cm. This CT exam was performed using one or more of the following dose reduction techniques: automated exposure control, adjustment of the mA and/or kV according to patient size, and/or use of iterative reconstruction technique. COMPARISON: No relevant prior studies available. FINDINGS: Vertebrae: Degenerative changes of the cervical spine are noted. No acute fracture. No malalignment. Discs/spinal canal/neural foramina: No acute findings. No significant spinal canal stenosis. Soft tissues: Unremarkable. IMPRESSION: No acute finding of the cervical spine.
[2024-10-01] MEDS ORDERED: MAG HYDROX/AL HYDROX/SIMETH 30 ML CUP PO PRN (04:57)
[2024-10-01] MEDS ORDERED: NALOXONE 0.4 MG/ML 1 ML VIAL IV PRN (04:57)
--- NOTE | 2024-10-01 04:57 | ED ---
Fall HPI - General Chief Complaint: Fall Stated Complaint: Fall Time Seen by Provider: 10/01/24 02:53 Source: patient Mode of arrival: EMS - History of Present Illness Initial Comments: This patient is an 78-year-old man presenting to have evaluation for left hip pain and inability to stand after he had fallen. Patient reported he had gotten up to use the bathroom and then he is not sure what happened but he fell, landing on his left hip resulting in pain and inability to move his leg. EMS was called and brought him here. The patient denies other injury currently. He states that his wrist hurt initially but now it is feeling better and he is able to move it. Denies head or neck injury. No chest, back, abdomen, or other extremity pains MD Complaint: fall -: minutes(s) Fall From: standing When Fall Occurred: just prior to arrival Fall Witnessed: no Place Fall Occurred: [facility] Loss of Consciousness: none Prolonged Down Time?: no Symptoms Prior to Fall: none Location - Extremities: Left: Thigh Severity: severe Quality: sharp Context: tripped/slipped - Related Data Home Medications Medication Instructions Recorded Confirmed Pramipexole [Mirapex] 0.25 mg PO TID@0500,1300,2100 08/21/23 10/01/24 busPIRone HCL [Buspar] 7.5 mg PO BID@0800,2000 10/14/23 10/01/24 Midodrine [ProAmatine] 5 mg PO TID@0500,1300,2100 08/24/24 10/01/24 Sertraline [Zoloft] 25 mg PO DAILY@0800 08/24/24 10/01/24 Tamsulosin [Flomax] 0.4 mg PO DAILY@0800 08/24/24 10/01/24 Carbidopa-Levodopa 25-250 mg 1 tab PO QID@05,11,17,23 10/01/24 10/01/24 [Sinemet 25-250] LORazepam [Ativan] 0.5 mg PO Q12H PRN 10/01/24 10/01/24 Magic Cup 1 dose PO TID@0800,1200,1800 10/01/24 10/01/24 Previous Rx's Medication Instructions Recorded Acetaminophen-Codeine 300-30mg 1 tab PO Q6H PRN 3 Days #12 tablet 10/04/24 [Tylenol w/codeine #3] Enoxaparin [Lovenox] 40 mg SQ DAILY #28 each 10/04/24 Sennosides/Docusate Sodium [Senna 1 each PO DAILY #20 capsule 10/04/24 Plus 8.6-50 mg Softgel] Allergies Allergy/AdvReac Type Severity Reaction Status Date / Time No Known Allergies Allergy Verified 10/02/24 12:07 Review of Systems ROS Statement: Those systems with pertinent positive or pertinent negative responses have been documented in the HPI. ROS Other: All systems not noted in ROS Statement are negative. Constitutional: Denies: fever, weakness Eyes: Denies: vision change Respiratory: Denies: cough, dyspnea Cardiovascular: Denies: chest pain, palpitations Gastrointestinal: Denies: abdominal pain, nausea, vomiting Genitourinary: Denies: dysuria Musculoskeletal: Reports: as per HPI, arthralgia. Denies: back pain Neurological: Denies: headache, weakness, numbness Past Medical History Additional Past Medical History / Comment(s): Parkinson's, hiatal hernia History of Any Multi-Drug Resistant Organisms: None Reported Past Surgical History: Tonsillectomy Additional Past Surgical History / Comment(s): hernia repair 2023 Past Anesthesia/Blood Transfusion Reactions: No Reported Reaction Past Psychological History: Anxiety, Depression Smoking Status: Former smoker Past Alcohol Use History: None Reported Past Drug Use History: None Reported General Exam Limitations: no limitations General appearance: alert, in no apparent distress Head exam: Present: atraumatic, normocephalic Eye exam: Present: normal appearance. Absent: scleral icterus, conjunctival injection ENT exam: Present: mucous membranes dry Neck exam: Present: normal inspection, full ROM. Absent: tenderness Respiratory exam: Present: normal lung sounds bilaterally. Absent: respiratory distress, wheezes, rales, rhonchi, stridor, chest wall tenderness, accessory muscle use Cardiovascular Exam: Present: regular rate, normal rhythm, normal heart sounds. Absent: systolic murmur, diastolic murmur, rubs, gallop GI/Abdominal exam: Present: soft. Absent: distended, tenderness, guarding, rebound, rigid, mass, pulsatile mass Extremities exam: Present: tenderness, normal capillary refill. Absent: normal inspection, full ROM, pedal edema Left Hip exam: Present: tenderness, swelling, external rotation, shortening. Absent: full ROM, abrasion, laceration Upper Leg exam: Present: tenderness. Absent: full ROM, swelling, abrasion, laceration Knee exam: Absent: tenderness, swelling, abrasion, laceration Lower Leg exam: Present: full ROM. Absent: tenderness, swelling, abrasion Ankle exam: Present: normal inspection, full ROM. Absent: tenderness, swelling Neurovascular tendon exam: Present: no vascular compromise. Absent: pulse deficit Back exam: Present: normal inspection. Absent: paraspinal tenderness, vertebral tenderness Neurological exam: Present: alert Skin exam: Present: warm, dry, intact, normal color. Absent: rash Course Vital Signs 10/01/24 10/01/24 10/01/24 02:29 04:34 09:41 Temperature 96.8 F L 96.9 F L Pulse Rate 61 63 63 Respiratory 17 17 16 Rate Blood Pressure 99/57 104/61 113/61 O2 Sat by Pulse 94 L 96 98 Oximetry 10/01/24 10/01/24 10/01/24 13:00 15:00 16:44 Temperature 97.4 F L 99.4 F Pulse Rate 66 71 68 Respiratory 17 19 Rate Blood Pressure 91/51 108/59 101/53 O2 Sat by Pulse 97 97 95 Oximetry 10/01/24 20:24 Temperature 98.2 F Pulse Rate 67 Respiratory 19 Rate Blood Pressure 98/56 O2 Sat by Pulse 97 Oximetry Medical Decision Making - Medical Decision Making The patient had left hip x-ray that I interpreted as showing comminuted left hip intertrochanteric fracture. The patient had chest x-ray that I interpreted as negative for acute infiltrate, pneumothorax, congestive heart failure The patient had CT scan of the brain and C-spine that I interpreted as negative for acute intracranial hemorrhage, mass effect or midline shift. Case discussed with Dr. Tavares who will admit patient Was pt. sent in by a medical professional or institution (, PA, RESPIRATORY CARE TECHNICIAN, urgent care, hospital, or [facility]...) When possible be specific @ -[No] Did you speak to anyone other than the patient for history (EMS, parent, family, police, friend...)? What history was obtained from this source @ -[No] Did you review nursing and triage notes (agree or disagree)? Why? @ -[I reviewed and agree with nursing and triage notes] Were old charts reviewed (outside hosp., previous admission, EMS record, old EKG, old radiological studies, urgent care reports/EKG's, [facility] records)? Report findings @ -[No old charts were reviewed] Differential Diagnosis (chest pain, altered mental status, abdominal pain women, abdominal pain men, vaginal bleeding, weakness, fever, dyspnea, syncope, headache, dizziness, GI bleed, back pain, seizure, CVA, palpatations, mental health, musculoskeletal)? @ -[Differential Musculoskeletal Muscular strain, contusion, ligament sprain, fracture, arthritis, septic arthritis, bursitis, cellulitis, muscle spasm, nerve compression, DVT, arterial occlusion, herpes zoster, electrolyte abnormality, tumor.... This is not meant to be in all inclusive list EKG interpreted by me (3pts min.). @ -[As above] X-rays interpreted by me (1pt min.). @ -[I interpreted as above CT interpreted by me (1pt min.). @ -[I interpreted as above U/S interpreted by me (1pt. min.). @ -[None done] What testing was considered but not performed or refused? (CT, X-rays, U/S, labs)? Why? @ -[None] What meds were considered but not given or refused? Why? @ -[None] Did you discuss the management of the patient with other professionals (professionals i.e. , PA, RESPIRATORY CARE TECHNICIAN, lab, RT, psych nurse, oncology social worker, classified ad clerk, teacher, minesweeping officer, case folder)? Give summary @ -[Case discussed with Dr. Tavares who will admit for probable surgical repair Was smoking cessation discussed for >3mins.? @ -[No] Was critical care preformed (if so, how long)? @ -[No] Were there social determinants of health that impacted care today? How? (Home lessness, low income, unemployed, alcoholism, drug addiction, transportation, low edu. Level, literacy, decrease access to med. care, residential, rehab)? @ -[No] Was there de-escalation of care discussed even if they declined (Discuss DNR or withdrawal of care, Hospice)? DNR status @ -[No] What co-morbidities impacted this encounter? (DM, HTN, Smoking, COPD, CAD, Cancer, CVA, ARF, Chemo, Hep., AIDS, mental health diagnosis, sleep apnea, morbid obesity)? @ -[None] Was patient admitted / discharged? Hospital course, mention meds given and route, prescriptions, significant lab abnormalities, going to OR and other pertinent info. @ -[As above Undiagnosed new problem with uncertain prognosis? @ -[No] Drug Therapy requiring intensive monitoring for toxicity (Heparin, Nitro, Insulin, Cardizem)? @ -[No] Were any procedures done? @ -[No] Diagnosis/symptom? @ -[Acute intertrochanteric left hip fracture Acute fall Acute, or Chronic, or Acute on Chronic? @ -[Acute Uncomplicated (without systemic symptoms) or Complicated (systemic symptoms)? @ -[Uncomplicated Side effects of treatment? @ -[No] Exacerbation, Progression, or Severe Exacerbation? @ -[No] Poses a threat to life or bodily function? How? (Chest pain, USA, PA, pneumonia, PE, COPD, DKA, ARF, appy, cholecystitis, CVA, Diverticulitis, Homicidal, Suicidal, threat to staff... and all critical care pts) @ -[Yes, threat to ability to walk without appropriate orthopedic surgical care All treatments are based on ideal body weight as in ED triage - Lab Data Result diagrams: 10/04/24 14:24 10/03/24 03:19 Lab Results 10/01/24 10/01/24 10/01/24 Range/Units 02:27 02:27 02:27 WBC 5.61 (4.50-10.00) 10*3/uL RBC 2.90 L (4.40-5.60) 10*6/uL Hgb 9.8 L D (13.0-17.0) g/dL Hct 28.7 L (39.6-50.0) % MCV 99.0 H D (80.0-97.0) fL MCH 33.8 H (27.0-32.0) pg MCHC 34.1 (32.0-37.0) g/dL Plt Count 197 (140-440) 10*3/uL MPV 10.8 (9.5-12.2) fL Immature Gran % (Auto) 0.5 % Neutrophils % 66.7 % Lymphocytes % 18.7 % Monocytes % 10.7 % Eosinophils % 2.9 % Basophils % 0.5 % Immature Gran # 0.03 (0.00-0.04) 10*3/uL Neutrophils # 3.74 (1.80-7.70) 10*3/uL Lymphocytes # 1.05 (0.90-5.00) 10*3/uL Monocytes # 0.60 (0.20-1.00) 10*3/uL Eosinophils # 0.16 (0.04-0.35) 10*3/uL Basophils # 0.03 (0.00-0.10) 10*3/uL PT 11.0 (10.0-12.5) sec INR 1.0 (<1.2) APTT 25.3 (22.0-30.0) sec Sodium 137 (137-145) mmol/L Potassium 3.6 (3.5-5.1) mmol/L Chloride 110 H (98-107) mmol/L Carbon Dioxide 22 (22-30) mmol/L Anion Gap 5 mmol/L BUN 25 H (9-20) mg/dL Creatinine 0.69 (0.66-1.25) mg/dL Est GFR (CKD-EPI)AfAm >90 (>60 ml/min/1.73 sqM) Est GFR (CKD-EPI)NonAf 90 (>60 ml/min/1.73 sqM) Glucose 96 (74-99) mg/dL Calcium 8.4 (8.4-10.2) mg/dL Total Bilirubin 0.5 (0.2-1.3) mg/dL AST 18 (17-59) U/L ALT <6 (4-49) U/L Alkaline Phosphatase 73 (38-126) U/L Total Protein 4.7 L (6.3-8.2) g/dL Albumin 2.7 L (3.5-5.0) g/dL - EKG Data -: EKG Interpreted by Mi EKG shows normal: sinus rhythm, axis (Normal), intervals (AL interval 181 ms, QTc 357 ms, both normal. QRS duration 122 ms, prolonged consistent with right bundle branch block.), QRS complexes (Right bundle branch block pattern.) Rate: normal (Rate 63 bpm) Disposition Clinical Impression: Fall, Intertrochanteric fracture of left hip Disposition: ADMITTED IP TO THIS HOSP Condition: Fair Is patient prescribed a controlled substance at d/c from ED?: No
[2024-10-01] MEDS: SODIUM CHLORIDE 0.9% 1,000 ML IV SCH (05:19)
[2024-10-01] MEDS ORDERED: CARBIDOPA-LEVODOPA ER 50-200MG 1 EACH TABLET.ER PO SCH (08:00)
[2024-10-01] MEDS: TAMSULOSIN 0.4 MG CAP.ER.24H PO SCH (09:44)
[2024-10-01] MEDS: PRAMIPEXOLE 0.25 MG TAB PO SCH (09:48)
[2024-10-01] MEDS: MIDODRINE 5 MG TAB PO SCH (09:49)
[2024-10-01] MEDS: ERGOCALCIFEROL 1,250 MCG (50,000 IU) CAPSULE PO SCH (09:49)
[2024-10-01] MEDS: SERTRALINE 25 MG TAB PO SCH (09:50)
[2024-10-01] MEDS: CARBIDOPA-LEVODOPA 25-250 MG 1 EACH TAB PO SCH (09:51)
[2024-10-01] MEDS ORDERED: LORazepam 0.5 MG TAB PO PRN (14:29)
[2024-10-01] MEDS: ENOXAPARIN 40 MG/0.4 ML SYRINGE SQ SCH (15:02)
--- NOTE | 2024-10-01 15:35 | P.CONS ---
History of Present Illness - Reason for Consult Consult date: 10/01/24 Medical management Requesting physician: Miles Proctor - Chief Complaint Fall - History of Present Illness Pleasant 78-year-old patient. Follows with visiting physicians Dr. Frederick. Currently a resident of [facility]. Does use a walker. Chronic medical conditions include Parkinson's, depression, BPH. Patient was brought by the EMS from the [facility] to senior living. Staff reported they heard the patient fall in the room. Patient is found on the floor next to his bed. Patient complaining of left hip pain. It was shortened and rotated. Patient has limited exercise tolerance because of underlying condition. Denies any prior cardiac history. No chest pain or shortness of breath. Review of systems: GEN.: Tired EYES: None HEENT: None NECK: None RESPIRATORY: None CARDIOVASCULAR: None GASTROINTESTINAL: None GENITOURINARY: None MUSCULOSKELETAL: Joint pains including left hip pain LYMPHATICS: None HEMATOLOGICAL: None PSYCHIATRY: A bit forgetful NEUROLOGICAL: [Does use a walker Social history: Currently at [facility]. Patient stopped smoking in 2011 smoked a pack a day for close to 30 years. Stopped drinking in 2019 was a heavy drinker prior to that. Is using a walker Physical examination: VITAL SIGNS: 96.9, 63, 16, 113 x 61, 98% room air GENERAL: BMI 18.2, laying in bed awake not in distress. EYES: Pupils equal. Conjunctiva jeffery l. HEENT: External appearance of nose and ears normal, oral cavity grossly normal. NECK: JVD not raised; masses not palpable. HEART: First and second heart sounds are normal; no edema. LUNGS: Respiratory rate normal; diminished breath sound. ABDOMEN: Soft, nontender, liver spleen not palpable, no masses palpable. PSYCH: Awake, able to answer and hold simple conversation]l. MUSCULOSKELETAL:No Clubbing/cyanosis;muscles-grossly intact. 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 Limited range of motion left hip NEUROLOGICAL: Cranial nerves grossly intact; no facial asymmetry, power and sensation grossly intact. LYMPHATICS: No lymph nodes palpable in the axilla and neck INVESTIGATIONS, reviewed in the clinical context: October 01, 2026: White count 5.6 hemoglobin 9.8 platelets 197 sodium 137 potassium 3.6 creatinine 0.69 EKG tracing personally reviewed by me-normal sinus rhythm Chest x-ray film personally reviewed by me-possibly some chronic changes upper zone. Some hyperinflation CT head without contrast: Unremarkable Left hip x-ray: Mildly displaced IT femoral neck fracture. Assessment plan: - Acute mildly displaced IT femoral neck fracture secondary to fall Pain control. Orthopedics following for possible surgical intervention tomorrow - Parkinson disease, chronic Sinemet 20 flushes to 51 tablet 4 times daily. Mirapex 0.25 mg 3 times daily - Hypotension Midodrine 5 mg 3 times daily - Depression anxiety BuSpar 7.5 mg twice daily. Zoloft 25 mg a day. - BPH Flomax 0.4 mg a day - Mild protein calorie malnutrition from decreased oral intake Ensure supplement - Full code Given patient's age and overall functional status patient is a moderate risk for surgery. No cardiopulmonary complications to surgery. Otherwise patient is medically stable to proceed for surgery Thank you Dr. Proctor Past Medical History Additional Past Medical History / Comment(s): Parkinson's, hiatal hernia History of Any Multi-Drug Resistant Organisms: None Reported Past Surgical History: Tonsillectomy Additional Past Surgical History / Comment(s): hernia repair 2023 Past Anesthesia/Blood Transfusion Reactions: No Reported Reaction Past Psychological History: Anxiety, Depression Smoking Status: Former smoker Past Alcohol Use History: None Reported Past Drug Use History: None Reported Medications and Allergies Home Medications Medication Instructions Recorded Confirmed Type Pramipexole [Mirapex] 0.25 mg PO TID@0500,1300,2100 08/21/23 10/01/24 History busPIRone HCL [Buspar] 7.5 mg PO BID@0800,2000 10/14/23 10/01/24 History Midodrine [ProAmatine] 5 mg PO TID@0500,1300,2100 08/24/24 10/01/24 History Sertraline [Zoloft] 25 mg PO DAILY@79908/24/24 10/01/24 History Tamsulosin [Flomax] 0.4 mg PO DAILY@79908/24/24 10/01/24 History Carbidopa-Levodopa 25-250 mg 1 tab PO QID@05,11,17,23 10/01/24 10/01/24 History [Sinemet 25-250] LORazepam [Ativan] 0.5 mg PO Q12H PRN 10/01/24 10/01/24 History Magic Cup 1 dose PO TID@0800,1200,1800 10/01/24 10/01/24 History Allergies Allergy/AdvReac Type Severity Reaction Status Date / Time No Known Allergies Allergy Verified 10/01/24 08:42 Physical Exam Vitals: Vital Signs Temp Pulse Resp BP Pulse Ox 10/01/24 15:00 71 108/59 97 10/01/24 13:00 66 91/51 97 10/01/24 09:41 96.9 F L 63 16 113/61 98 10/01/24 04:34 63 17 104/61 96 10/01/24 02:29 96.8 F L 61 17 99/57 94 L Intake and Output 10/01/24 10/01/24 10/01/24 06:59 14:59 22:59 Other: Weight 60.781 kg Results CBC & Chem 7: 10/01/24 02:27 10/01/24 02:27 Labs: Abnormal Lab Results - Last 24 Hours (Table) 10/01/24 10/01/24 Range/Units 02:27 02:27 RBC 2.90 L (4.40-5.60) 10*6/uL Hgb 9.8 L D (13.0-17.0) g/dL Hct 28.7 L (39.6-50.0) % MCV 99.0 H D (80.0-97.0) fL MCH 33.8 H (27.0-32.0) pg Chloride 110 H (98-107) mmol/L BUN 25 H (9-20) mg/dL Total Protein 4.7 L (6.3-8.2) g/dL Albumin 2.7 L (3.5-5.0) g/dL
[2024-10-01] MEDS ORDERED: NON FORMULARY DRUG (Magic Cup 1 EACH Ml) PO SCH (18:00)
--- NOTE | 2024-10-02 07:37 | P.HPOR ---
History of Present Illness H&P Date: 10/01/24 Chief Complaint: Left hip pain Patient is an 78-year-old male who presents to the emergency department yesterday for evaluation of left hip pain and inability to stand after patient had fallen at [facility]. Reportedly, patient had gotten up to use his bathroom then was not sure what happened but he fell landing on his left hip. EMS was called and brought patient into the hospital. Patient denies any other injury currently. Patient denies losing consciousness or hitting his head. Patient denies any previous orthopedic surgeries. History was difficult to obtain due to patient's mental state. Left lower extremity appears to be shortened and externally rotated. x-ray of the left hip confirms left hip IT fracture. Past Medical History Additional Past Medical History / Comment(s): Parkinson's, hiatal hernia History of Any Multi-Drug Resistant Organisms: None Reported Past Surgical History: Tonsillectomy Additional Past Surgical History / Comment(s): hernia repair 2023 Past Anesthesia/Blood Transfusion Reactions: No Reported Reaction Past Psychological History: Anxiety, Depression Smoking Status: Former smoker Past Alcohol Use History: None Reported Past Drug Use History: None Reported Medications and Allergies Home Medications Medication Instructions Recorded Confirmed Type Pramipexole [Mirapex] 0.25 mg PO TID@0500,1300,2100 08/21/23 10/01/24 History busPIRone HCL [Buspar] 7.5 mg PO BID@0800,2000 10/14/23 10/01/24 History Midodrine [ProAmatine] 5 mg PO TID@0500,1300,2100 08/24/24 10/01/24 History Sertraline [Zoloft] 25 mg PO DAILY@0800 08/24/24 10/01/24 History Tamsulosin [Flomax] 0.4 mg PO DAILY@0800 08/24/24 10/01/24 History Carbidopa-Levodopa 25-250 mg 1 tab PO QID@05,11,17,23 10/01/24 10/01/24 History [Sinemet 25-250] LORazepam [Ativan] 0.5 mg PO Q12H PRN 10/01/24 10/01/24 History Magic Cup 1 dose PO TID@0800,1200,1800 10/01/24 10/01/24 History Allergies Allergy/AdvReac Type Severity Reaction Status Date / Time No Known Allergies Allergy Verified 10/01/24 08:42 Physical Examination Left lower extremity appears to be shortened and externally rotated. Some ecchymosis present. Negative for any open fractures, significant open wounds. Sensation is equal, symmetric, bilat intact throughout the upper and lower extremities on exam. Patient does have significant tenderness to palpation over the left hip and radiating down the left leg just proximal to the left knee. Nontender throughout rest of exam. Patient does have significantly limited range of motion in the left lower extremity on exam secondary to injury left hip referred pain. Patient is able to wiggle digits and left foot. Patient does have good range of motion on right lower extremity on exam. 4-/5 in RLE on exam. 4/5 in all major motor groups in bilateral upper extremities. Left ankle holly si/plantarflexion 3/5. Left knee and left hip motor exam not performed due to the injury. Radial pulse intact, 2+ bilaterally. Cap refill under 3 seconds in digits of upper extremities. Positive logroll maneuver on the left. Negative Homans bilaterally. Results - Labs Labs: Abnormal Lab Results - Last 24 Hours (Table) 10/01/24 10/01/24 Range/Units 02:27 02:27 RBC 2.90 L (4.40-5.60) 10*6/uL Hgb 9.8 L D (13.0-17.0) g/dL Hct 28.7 L (39.6-50.0) % MCV 99.0 H D (80.0-97.0) fL MCH 33.8 H (27.0-32.0) pg Chloride 110 H (98-107) mmol/L BUN 25 H (9-20) mg/dL Total Protein 4.7 L (6.3-8.2) g/dL Albumin 2.7 L (3.5-5.0) g/dL H & H 10/01/24 Range/Units 02:27 Hgb 9.8 L D (13.0-17.0) g/dL Hct 28.7 L (39.6-50.0) % Coagulation 10/01/24 Range/Units 02:27 INR 1.0 (<1.2) Result Diagrams: 10/01/24 02:27 10/01/24 02:27 - Diagnostic results Hip x-ray: report reviewed, image reviewed (X-ray of the left hip does demo nstrate left hip IT fracture) Assessment and Plan Assessment: 1. Left hip IT fracture status post fall from standing Plan: 1. Left hip IT fracture status post fall from standing -x-ray of the left hip does demonstrate left hip IT fracture. I discussed the findings of the imaging and exam with my attending, Dr. Proctor. At this time we are recommending orthopedic surgical intervention in the form of left hip intramedullary nail. Surgery has been scheduled 10/02/2024 -left hip IM nail. Consent to be obtained. N.p.o. after midnight. Nonweightbearing left left lower extremity. Pain medication as needed. We will continue to follow patient during stay in hospital. 2. Appreciate medical management 3. Pain management - tylenol 4. DVT prophylaxis - mechanical 5. GI prophylaxis recs 6. PT/OT- NWB LLE 7. encourage incentive spriometer use Time with Patient: Less than 30
[2024-10-02] MEDS ORDERED: ACETAMINOPHEN TAB 325 MG TAB PO PRN (07:41)
[2024-10-02] MEDS: IV FLUID CONTINUATION 1,000 ML IV ONE (11:45)
[2024-10-02] MEDS: ONDANSETRON 4 MG/2 ML VIAL IVP PRN (12:24)
[2024-10-02 12:30] VITALS: BMI 18.1
[2024-10-02] MEDS ORDERED: ROCURONIUM 10 MG/ML (5 ML VIAL) IV ONE (12:51)
[2024-10-02] MEDS ORDERED: ePHEDrine 50 MG/ML 1 ML VIAL ONE (12:51)
[2024-10-02] MEDS ORDERED: WATER FOR INJECTION, STERILE 10 ML VIAL IV ONE (12:51)
[2024-10-02] MEDS ORDERED: TRANEXAMIC 1,000 MG/100ML-NACL PREMIX BAG ONE (12:51)
[2024-10-02] MEDS ORDERED: GLYCOPYRROLATE 0.2 MG/ML 2 ML VIAL ONE (12:51)
[2024-10-02] MEDS ORDERED: PHENYLEPHRINE-0.9% NACL SYG 1,000 MCG/10 ML SYRINGE ONE (12:51)
[2024-10-02] MEDS ORDERED: SUCCINYLCHOLINE CHLORIDE 200 MG/10 ML VIAL IV ONE (12:51)
[2024-10-02] MEDS ORDERED: ETOMIDATE 2 MG/ML 10 ML VIAL ONE (12:51)
[2024-10-02] MEDS ORDERED: NEOSTIGMINE 1 MG/ML 10 ML VIAL ONE (12:51)
[2024-10-02] MEDS ORDERED: fentaNYL (PF) 50 MCG/ML 2 ML AMP ONE (12:51)
[2024-10-02] MEDS ORDERED: KETAMINE HCL IN 0.9 % NACL 50 MG/5 ML SYRINGE ONE (12:51)
[2024-10-02] MEDS: ceFAZolin 1,000 MG in SODIUM CHLORIDE 0.9% 1,000 ML IRRIGATION ONE (13:02)
[2024-10-02] MEDS ORDERED: NALOXONE 0.4 MG/ML 1 ML VIAL IV PRN (14:04)
--- NOTE | 2024-10-02 14:15 | P.OP ---
Date of Procedure: 10/02/24 Preoperative Diagnosis: Displaced three-part left intertrochanteric femur fracture Postoperative Diagnosis: Same Procedure(s) Performed: Trochanteric intramedullary nailing left intertrochanteric femur fracture Implants: Rama gamma 3 12 mm short 125 degree trochanteric nail, 100 mm compression screw, 37.5 mm x 4.5 mm distal locking screw. Anesthesia: GETA Surgeon: Miles Proctor Inspector Bullet Slugs #1: Noah Barros Estimated Blood Loss (ml): 50 Pathology: none sent Condition: stable Disposition: PACU Indications for Procedure: The patient is an 78-year-old male who presents after falling injuring his left hip. Upon evaluation he was noted to have a displaced three-part left intertrochanteric femur fracture. A discussion of the risks and benefits of operative intervention was made with the patient's family. Specific risks of the surgery to include infection, neurovascular injury, development of nonunion/malunion, and possible need for subsequent procedures was discussed. Informed consent was obtained. Operative Findings: As below Description of Procedure: The patient was brought to the operating room, and after induction of general anesthesia was placed supine on the Burley table. The left leg was then placed in the traction boot and appropriately padded. The right leg was placed in a well- leg villa. The fracture was reduced with longitudinal traction and internal rotation of the left leg. This was verified on the AP and lateral views with fluoroscopy. I was able to obtain good reduction. The left lower extremity was prepped and draped in normal fashion. An 8 cm incision was then made starting at the greater trochanter extending proximally. Skin was incised sharply. Subcutaneous tissues were divided sharply. Electrocautery was used for hemost asis. The gluteus scott fascia was split in line with the skin incision. Dissection was then made down to level the greater trochanter. A starting awl was then placed in the medial/central portion of the greater trochanter and this was verified with fluoroscopy. A ball-tipped guidewire was then easily inserted. I reamed up to 13 mm distally using flexible reamers. Proximally I reamed to 15.5 mm to the level of the lesser trochanter. A 125 degree short 12 mm trochanteric nail was then gently inserted over the guidewire. The guidewire was removed. A guidepin was placed in the centercenter portion of the femoral head and neck with the aid of fluoroscopy to within 5 mm of the articular surface. A triple reamer was used to a depth of 100 mm. A 100 mm compression screw was inserted with good purchase. This was locked proximally to control rotation. The distal locking screw was then placed in the static position with the aid of fluoroscopy. Final fluoroscopic view showed adequate reduction of the fracture and placement of the implant on the AP and lateral views. The wounds were irrigated normal saline. The fascia was closed with running 0 Vicryl suture. The subcutaneous tissues were approximate interrupted 2-0 Vicryl sutures. The skin was reapproximated po. A sterile dressing was applied. The patient was awoken from general anesthesia and transferred to recovery room in fair condition. Blood loss is estimated 50 cc. No complications were incurred. Sponge and needle counts were correct in the case. Noah NORTH assisted in the major components the case to include positioning, reduction, implantation, and closure.
--- NOTE | 2024-10-02 14:16 | XR ---
EXAMINATION TYPE: XR Hip Complete LT, FL guidance operating room Intraoperative/procedural fluoroscop ic services were provided. CLINICAL INDICATION:Male, 78 years old with history of IT NAIL LT NIP; , PHH FINDINGS: Post surgical changes from left proximal femur IT nail and screw for intertrochanteric fracture. No r adiographic evidence for complication. Total fluoroscopy time is 29.3 seconds. DAP: 1.3985 Gycm2 Please see the operative/procedural note for further details. [facility], , 10/02/2024 2:13 PM
[2024-10-02] MEDS: Acetaminophen-Codeine 300-30mg TAB PO PRN (17:36)
--- NOTE | 2024-10-02 18:22 | P.PN ---
Progress Note - Text Progress Note Date: 10/02/24 - Chief Complaint Fall - History of Present Illness Pleasant 78-year-old patient. Follows with visiting physicians Dr. Frederick. Currently a resident of [facility]. Does use a walker. Chronic medical conditions include Parkinson's, depression, BPH. Patient was brought by the EMS from the [facility] to custodial. Staff reported they heard the patient fall in the room. Patient is found on the floor next to his bed. Patient complaining of left hip pain. It was shortened and rotated. Patient has limited exercise tolerance because of underlying condition. Denies any prior cardiac history. No chest pain or shortness of breath. October 02: Patient was seen by me this morning. In bed. NPO. Later this afternoon intramedullary nailing was carried out by Dr. Proctor. Active Medications Acetaminophen (Acetaminophen Tab 325 Mg Tab) 650 mg PO Q6HR PRN PRN Reason: Fever and/ or Pain Acetaminophen/Codeine Phosphate (Acetaminophen-Codeine 300-30mg Tab) 1 each PO Q6HR PRN PRN Reason: Pain Scale 7 to 10 Last Admin: 10/02/24 17:36 Dose: 1 each Al Hydroxide/Mg Hydroxide (Mag Hydrox/Al Hydrox/Simeth 30 Ml Cup) 15 ml PO Q6HR PRN PRN Reason: Indigestion Buspirone HCl (Buspirone Hcl 5 Mg Tab) 7.5 mg PO BID@0800,2000 [facility] Last Admin: 10/02/24 08:26 Dose: 7.5 mg Carbidopa/Levodopa (Carbidopa-Levodopa 25-250 Mg 1 Each Tab) 1 each PO QID@05,11,17,23 [facility] Last Admin: 10/02/24 17:19 Dose: 1 each Enoxaparin Sodium (Enoxaparin 40 Mg/0.4 Ml Syringe) 40 mg SQ DAILY [facility] Ergocalciferol (Ergocalciferol 1,250 Mcg (50,000 Iu) Capsule) 1,250 mcg PO MO [facility] Last Admin: 10/01/24 09:49 Dose: 1,250 mcg Sodium Chloride (Saline 0.9%) 1,000 mls @ 75 mls/hr IV .[id number] [facility] Last Admin: 10/02/24 08:25 Dose: 75 mls/hr Lorazepam (Lorazepam 0.5 Mg Tab) 0.5 mg PO Q12H PRN PRN Reason: Anxiety Midodrine (Midodrine 5 Mg Tab) 5 mg PO TID@0800,1400,2000 [facility] Last Admin: 10/02/24 14:20 Dose: Not Given Morphine Sulfate (Morphine Sulfate 4 Mg/Ml Syringe) 4 mg IV Q4HR PRN PRN Reason: Severe Pain (Scale 7 to 10) Naloxone HCl (Naloxone 0.4 Mg/Ml 1 Ml Vial) 0.2 mg IV Q2M PRN PRN Reason: Opioid Reversal Naloxone HCl (Naloxone 0.4 Mg/Ml 1 Ml Vial) 0.2 mg IV Q2M PRN PRN Reason: Opioid Reversal Ondansetron HCl (Ondansetron 4 Mg/2 Ml Vial) 4 mg IVP Q8HR PRN PRN Reason: Nausea And Vomiting Last Admin: 10/02/24 12:24 Dose: 4 mg Pramipexole Dihydrochloride (Pramipexole 0.25 Mg Tab) 0.25 mg PO TID@1000,1400,1800 [facility] Last Admin: 10/02/24 17:19 Dose: 0.25 mg Sertraline HCl (Sertraline 25 Mg Tab) 25 mg PO DAILY@0800 [facility] Last Admin: 10/02/24 08:27 Dose: 25 mg Tamsulosin HCl (Tamsulosin 0.4 Mg Cap.Er.24h) 0.4 mg PO DAILY@0800 [facility] Last Admin: 10/02/24 08:26 Dose: 0.4 mg Social history: Currently at [facility]. Patient stopped smoking in 2011 smoked a pack a day for close to 30 years. Stopped drinking in 2019 was a heavy drinker prior to that. Is using a walker Physical examination: VITAL SIGNS: 97.6, 60, 14, 106 x 64, 94% room GENERAL: BMI 18.2, laying in bed awake EYES: Pupils equal. Conjunctiva jeffery l. HEENT: External appearance of nose and ears normal, oral cavity grossly normal. NECK: JVD not raised; masses not palpable. HEART: First and second heart sounds are normal; no edema. LUNGS: Respiratory rate normal; diminished breath sound. ABDOMEN: Soft, nontender, liver spleen not palpable, no masses palpable. PSYCH: Awake, able to answer and hold simple conversation]l. MUSCULOSKELETAL:No Clubbing/cyanosis;muscles-grossly intact. 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 Limited range of motion left hip. NEUROLOGICAL: Cranial nerves grossly intact; no facial asymmetry, power and sensation grossly intact. Fine tremors INVESTIGATIONS, reviewed in the clinical context: October 01, 2026: White count 5.6 hemoglobin 9.8 platelets 197 sodium 137 potassium 3.6 creatinine 0.69 EKG tracing personally reviewed by me-normal sinus rhythm Chest x-ray film personally reviewed by me-possibly some chronic changes upper zone. Some hyperinflation CT head without contrast: Unremarkable Left hip x-ray: Mildly displaced IT femoral neck fracture. Assessment plan: - Acute mildly displaced IT femoral neck fracture secondary to fall Pain control. Dr. Proctor: Intramedullary nailing done October 02 - Parkinson disease, chronic Sinemet 4 times daily. Mirapex 0.25 mg 3 times daily - Hypotension Midodrine 5 mg 3 times daily - Depression anxiety BuSpar 7.5 mg twice daily. Zoloft 25 mg a day. - BPH Flomax 0.4 mg a day - Mild protein calorie malnutrition from decreased oral intake Ensure supplement - Full code Thank you Dr. Proctor Past Medical History Additional Past Medical History / Comment(s): Parkinson's, hiatal hernia History of Any Multi-Drug Resistant Organisms: None Reported Past Surgical History: Tonsillectomy Additional Past Surgical History / Comment(s): hernia repair 2023 Past Anesthesia/Blood Transfusion Reactions: No Reported Reaction Past Psychological History: Anxiety, Depression Smoking Status: Former smoker Past Alcohol Use History: None Reported Past Drug Use History: None Reported
[2024-10-02 19:56] LABS: Basophils # (A) 0.04 X 10*3/uL (0.00-0.10); Basophils % (A) 0.7 %; Eosinophils # (A) 0.14 X 10*3/uL (0.04-0.35); Eosinophils % (A) 2.6 %; HCT 33.8 % (39.6-50.0); HGB 10.9 g/dL (13.0-17.0); Immature Grans, Automated 0.70 %; Lymphocytes # (A) 0.67 X 10*3/uL (0.90-5.00); Lymphocytes % (A) 12.3 %; MCH 32.7 pg (27.0-32.0); MCHC 32.2 g/dL (32.0-37.0); MCV 101.5 FL (80.0-97.0); Monocytes # (A) 0.61 X 10*3/uL (0.20-1.00); Monocytes % (A) 11.2 %; NRBC Per 100 WBC 0 X 10*3/uL (0.00-0.01); Neutrophils # (A) 3.93 X 10*3/uL (1.80-7.70); Neutrophils % (A) 72.5 %; Platelet Count 194 X 10*3/uL (140-440); RBC 3.33 X 10*6/uL (4.40-5.60); RDW 13.8 % (11.5-14.5); WBC 5.43 X 10*3/uL (4.50-10.00)
[2024-10-03 03:47] LABS: Basophils # (A) 0.02 10*3/uL (0.00-0.10); Basophils % (A) 0.4 %; Eosinophils # (A) 0.12 10*3/uL (0.04-0.35); Eosinophils % (A) 2.2 %; HCT 30.1 % (39.6-50.0); HGB 10.2 g/dL (13.0-17.0); Lymphocytes # (A) 0.57 10*3/uL (0.90-5.00); Lymphocytes % (A) 10.7 %; MCH 33.3 pg (27.0-32.0); MCHC 33.9 g/dL (32.0-37.0); MCV 98.4 fL (80.0-97.0); Monocytes # (A) 0.67 10*3/uL (0.20-1.00); Monocytes % (A) 12.5 %; Neutrophils # (A) 3.94 10*3/uL (1.80-7.70); Neutrophils % (A) 73.6 %; Platelet Count 185 10*3/uL (140-440); RBC 3.06 10*6/uL (4.40-5.60); RDW 13.6 % (11.5-14.5); WBC 5.35 10*3/uL (4.50-10.00)
[2024-10-03 04:11] LABS: African American GFR (CKD) >90 (>60 ml/min/1.73 sqM); Anion Gap 8 mmol/L; Blood Urea Nitrogen 18 mg/dL (9-20); Calcium 9.1 mg/dL (8.4-10.2); Carbon Dioxide 22 mmol/L (22-30); Chloride 104 mmol/L (98-107); Glucose 119 mg/dL (74-99); Non-African American GFR(CKD) 85 (>60 ml/min/1.73 sqM); Potassium 4.1 mmol/L (3.5-5.1); Sodium 134 mmol/L (137-145)
[2024-10-03] MEDS: MORPHINE SULFATE 4 MG/ML SYRINGE IV PRN (05:52)
--- NOTE | 2024-10-03 12:59 | P.PN ---
Subjective Progress Note Date: 10/03/24 Principal diagnosis: Displaced three-part left intertrochanteric femur fracture Patient was seen at bedside this morning sitting up in chair with dressing present over left hip. Nursing mention that overnight patient had remove dressing and pulled some of the po out. Nursing reinforced incision with Steri-Strips. Patient says he has been having pain in the left hip this morning and has had some difficult time bearing weight to the left lower extremity since surgery yesterday. Due to the patient's mental state the rest of history is difficult to obtain. Objective - Vital Signs Vital signs: Vital Signs Temp 98.2 F 10/03/24 07:57 Pulse 76 10/03/24 08:35 Resp 17 10/03/24 08:35 BP 114/62 10/03/24 07:57 Pulse Ox 95 10/03/24 07:57 FiO2 Intake & Output 10/02/24 10/03/24 10/03/24 18:59 06:59 18:59 Intake Total 801 Output Total 950 600 Balance -149 -600 Weight 60.78 kg Intake: IV 801 Output: Urine 900 600 Estimated Blood Loss 50 Other: Voiding Method Indwelling Catheter Indwelling Catheter Indwelling Catheter - Exam Ecchymosis present near incision. Negative for any open fracture. Incision appears to be healing at this time.. Sensation is equal, symmetric, bilat intact throughout the upper and lower extremities on exam. Patient does have significant tenderness to palpation over the left hip and radiating down the left leg just proximal to the left knee. Nontender throughout rest of exam. Patient does have significantly limited range of motion in the left lower extremity on exam secondary to pain in hip. Patient is able to wiggle digits and left foot. Patient does have good range of motion on right lower extremity on exam. 4-/5 in RLE on exam. 4/5 in all major motor groups in bilateral upper extremities. Left ankle dorsi/plantarflexion 3+/5. Left knee and left hip 3/5. Radial pulse intact, 2+ bilaterally. Cap refill under 3 seconds in digits of upper extremities. Negative Homans bilaterally. - Labs CBC & Chem 7: 10/03/24 03:19 10/03/24 03:19 Labs: Abnormal Lab Results - Last 24 Hours (Table) 10/02/24 10/03/24 10/03/24 Range/Units 15:44 03:19 03:19 RBC 3.33 L 3.06 L (4.40-5.60) X 10*6/uL Hgb 10.9 L 10.2 L (13.0-17.0) g/dL Hct 33.8 L 30.1 L (39.6-50.0) % MCV 101.5 H 98.4 H (80.0-97.0) FL MCH 32.7 H 33.3 H (27.0-32.0) pg Lymphocytes # 0.67 L 0.57 L (0.90-5.00) X 10*3/uL Sodium 134 L (137-145) mmol/L Glucose 119 H (74-99) mg/dL Assessment and Plan Assessment: Displaced three-part left intertrochanteric femur fracture - Postop day 1 status post left hip IM nail Plan: 1. Displaced three-part left intertrochanteric femur fracture -surgery performed yesterday, 10/02/2024 -left hip IM nail. Patient stable at bedside's morning with dressing present over left hip incisions. Assess dressing daily. Pain medication as needed. Weightbearing as tolerated walker and assistance. We will continue to follow patient during stay in hospital. Plan for discharge to rehab tomorrow. 2. Appreciate medical management 3. Pain management - tylenol w/codeine 4. DVT prophylaxis - lovenox 5. GI prophylaxis - Maalox 6. PT/OT-weightbearing as tolerated with walker and assistance 7. encourage incentive spriometer use 8. Discharge planning -and for discharge to rehab tomorrow Time with Patient: Less than 30
[2024-10-03] MEDS: ENOXAPARIN 40 MG/0.4 ML SYRINGE SQ SCH (15:32)
--- NOTE | 2024-10-03 17:31 | P.PN ---
Progress Note - Text Progress Note Date: 10/03/24 Chief Complaint Fall - History of Present Illness Pleasant 78-year-old patient. Follows with visiting physicians Dr. Frederick. Currently a resident of [facility]. Does use a walker. Chronic medical conditions include Parkinson's, depression, BPH. Patient was brought by the EMS from the [facility] to longterm. Staff reported they heard the patient fall in the room. Patient is found on the floor next to his bed. Patient complaining of left hip pain. It was shortened and rotated. Patient has limited exercise tolerance because of underlying condition. Denies any prior cardiac history. No chest pain or shortness of breath. October 02: Patient was seen by me this morning. In bed. NPO. Later this afternoon intramedullary nailing was carried out by Dr. Proctor. October 03: Up in a chair. Significant pain at the operative site. Oral intake 25- 50%. PT OT on the case. Currently maximum assist Active Medications Acetaminophen (Acetaminophen Tab 325 Mg Tab) 650 mg PO Q6HR PRN PRN Reason: Fever and/ or Pain Acetaminophen/Codeine Phosphate (Acetaminophen-Codeine 300-30mg Tab) 1 each PO Q6HR PRN PRN Reason: Pain Scale 7 to 10 Last Admin: 10/03/24 14:13 Dose: 1 each Al Hydroxide/Mg Hydroxide (Mag Hydrox/Al Hydrox/Simeth 30 Ml Cup) 15 ml PO Q6HR PRN PRN Reason: Indigestion Buspirone HCl (Buspirone Hcl 5 Mg Tab) 7.5 mg PO BID@0800,2000 [facility] Last Admin: 10/03/24 08:35 Dose: 7.5 mg Carbidopa/Levodopa (Carbidopa-Levodopa 25-250 Mg 1 Each Tab) 1 each PO QID@05,11,17,23 [facility] Last Admin: 10/03/24 17:22 Dose: 1 each Enoxaparin Sodium (Enoxaparin 40 Mg/0.4 Ml Syringe) 40 mg SQ DAILY [facility] Last Admin: 10/03/24 15:32 Dose: 40 mg Ergocalciferol (Ergocalciferol 1,250 Mcg (50,000 Iu) Capsule) 1,250 mcg PO MO [facility] Last Admin: 10/01/24 09:49 Dose: 1,250 mcg Sodium Chloride (Saline 0.9%) 1,000 mls @ 75 mls/hr IV .[id number] [facility] Last Admin: 10/03/24 16:43 Dose: 75 mls/hr Lorazepam (Lorazepam 0.5 Mg Tab) 0.5 mg PO Q12H PRN PRN Reason: Anxiety Midodrine (Midodrine 5 Mg Tab) 5 mg PO TID@0800,1400,2000 [facility] Last Admin: 10/03/24 15:05 Dose: Not Given Morphine Sulfate (Morphine Sulfate 4 Mg/Ml Syringe) 4 mg IV Q4HR PRN PRN Reason: Severe Pain (Scale 7 to 10) Last Admin: 10/03/24 17:23 Dose: 4 mg Naloxone HCl (Naloxone 0.4 Mg/Ml 1 Ml Vial) 0.2 mg IV Q2M PRN PRN Reason: Opioid Reversal Naloxone HCl (Naloxone 0.4 Mg/Ml 1 Ml Vial) 0.2 mg IV Q2M PRN PRN Reason: Opioid Reversal Ondansetron HCl (Ondansetron 4 Mg/2 Ml Vial) 4 mg IVP Q8HR PRN PRN Reason: Nausea And Vomiting Last Admin: 10/02/24 12:24 Dose: 4 mg Pramipexole Dihydrochloride (Pramipexole 0.25 Mg Tab) 0.25 mg PO TID@1000,1400,1800 [facility] Last Admin: 10/03/24 17:23 Dose: 0.25 mg Sertraline HCl (Sertraline 25 Mg Tab) 25 mg PO DAILY@0800 [facility] Last Admin: 10/03/24 08:35 Dose: 25 mg Tamsulosin HCl (Tamsulosin 0.4 Mg Cap.Er.24h) 0.4 mg PO DAILY@0800 [facility] Last Admin: 10/03/24 08:35 Dose: 0.4 mg Social history: Currently at [facility]. Patient stopped smoking in 2011 smoked a pack a day for close to 30 years. Stopped drinking in 2019 was a heavy drinker prior to that. Is using a walker Physical examination: VITAL SIGNS: 97.6, 71, 15, 125 x 67, 96% room air GENERAL: BMI 18.2, up in a recliner but uncomfortable EYES: Pupils equal. Conjunctiva jeffery l. HEENT: External appearance of nose and ears normal, oral cavity grossly normal. NECK: JVD not raised; masses not palpable. HEART: First and second heart sounds are normal; no edema. LUNGS: Respiratory rate normal; diminished breath sound. ABDOMEN: Soft, nontender, liver spleen not palpable, no masses palpable. PSYCH: Awake, able to answer and hold simple conversation]l. MUSCULOSKELETAL:No Clubbing/cyanosis;muscles-grossly intact. 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 NEUROLOGICAL: Cranial nerves grossly intact; no facial asymmetry, power and sensation grossly intact. Fine tremors INVESTIGATIONS, reviewed in the clinical context: October 03: White count 5.3 hemoglobin 10.2 platelets manage 5 potassium 4.1 creatinine 0.79 October 01, 2026: White count 5.6 hemoglobin 9.8 platelets 197 sodium 137 potassium 3.6 creatinine 0.69 EKG tracing personally reviewed by me-normal sinus rhythm Chest x-ray film personally reviewed by me-possibly some chronic changes upper zone. Some hyperinflation CT head without contrast: Unremarkable Left hip x-ray: Mildly displaced IT femoral neck fracture. Assessment plan: - Acute mildly displaced IT femoral neck fracture secondary to fall Pain control. Dr. Proctor: Intramedullary nailing done October 02 - Parkinson disease, chronic Sinemet 4 times daily. Mirapex 0.25 mg 3 times daily - Hypotension Midodrine 5 mg 3 times daily - Depression anxiety BuSpar 7.5 mg twice daily. Zoloft 25 mg a day. - BPH Flomax 0.4 mg a day - Mild protein calorie malnutrition from decreased oral intake Ensure supplement - Acute gait dysfunction and medical debility from fracture and surgical repair PT OT - Full code Continue current medication treatment plan Thank you Dr. Proctor Past Medical History Additional Past Medical History / Comment(s): Parkinson's, hiatal hernia History of Any Multi-Drug Resistant Organisms: None Reported Past Surgical History: Tonsillectomy Additional Past Surgical History / Comment(s): hernia repair 2023 Past Anesthesia/Blood Transfusion Reactions: No Reported Reaction Past Psychological History: Anxiety, Depression Smoking Status: Former smoker Past Alcohol Use History: None Reported Past Drug Use History: None Reported
[2024-10-04 01:44] VITALS: RESP 16
--- NOTE | 2024-10-04 12:06 | P.PN ---
Subjective Progress Note Date: 10/04/24 Principal diagnosis: Displaced three-part left intertrochanteric femur fracture Patient was seen at bedside this morning sitting up in chair with dressing present over left hip. Patient says he has been having pain in the left hip this morning and has had some difficult time bearing weight to the left lower extremity since surgery yesterday. Due to the patient's mental state the rest of history is difficult to obtain. Objective - Vital Signs Vital signs: Vital Signs Temp 98.2 F 10/04/24 07:44 Pulse 67 10/04/24 07:44 Resp 16 10/04/24 07:44 BP 107/58 10/04/24 07:44 Pulse Ox 96 10/04/24 07:44 FiO2 Intake & Output 10/03/24 10/04/24 10/04/24 18:59 06:59 18:59 Output Total 300 Balance -300 Output: Urine 300 Other: Voiding Method Indwelling Catheter # Voids 0 1 - Exam Ecchymosis present near incision. Negative for any open fracture. Incision appears to be healing at this time.. Sensation is equal, symmetric, bilat intact throughout the upper and lower extremities on exam. Patient does have si gnificant tenderness to palpation over the left hip and radiating down the left leg just proximal to the left knee. Nontender throughout rest of exam. Patient does have significantly limited range of motion in the left lower extremity on exam secondary to pain in hip. Patient is able to wiggle digits and left foot. Patient does have good range of motion on right lower extremity on exam. 4-/5 in RLE on exam. 4/5 in all major motor groups in bilateral upper extremities. Left ankle dorsi/plantarflexion 3+/5. Left knee and left hip 3/5. Radial pulse intact, 2+ bilaterally. Cap refill under 3 seconds in digits of upper extremities. Negative Homans bilaterally. - Labs CBC & Chem 7: 10/03/24 03:19 10/03/24 03:19 Assessment and Plan Assessment: Displaced three-part left intertrochanteric femur fracture - Postop day 2 status post left hip IM nail Plan: 1. Displaced three-part left intertrochanteric femur fracture -surgery performed 10/02/2024 -left hip IM nail. Patient stable at bedside this morning with dressing present over left hip incisions. Assess dressing daily. Pain medication as needed. Weightbearing as tolerated walker and assistance. Discharge to rehab today. 2. Appreciate medical management 3. Pain management - tylenol w/codeine 4. DVT prophylaxis - lovenox 5. GI prophylaxis - Maalox 6. PT/OT-weightbearing as tolerated with walker and assistance 7. encourage incentive spriometer use 8. Discharge planning -discharge to rehab today Time with Patient: Less than 30
--- NOTE | 2024-10-04 13:54 | P.DS ---
Providers Date of admission: 10/01/24 04:57 Expected date of discharge: 10/04/24 Attending physician: Miles Proctor Consults: 10/01/24 05:00 Consult Physician Routine Consulting Provider: Yusef Blanchard Consult Reason/Comments: Medical management Do you want consulting provider notified?: Yes Primary care physician: Manuel Frederick MD Hospital Course: Date of admission: 10/01/2024 Date of discharge: 10/04/2024 Admission diagnosis: Displaced left intertrochanteric femur fracture Discharge diagnosis: Status post IM nail left intertrochanteric femur fracture Attending physician: Dr. Proctor Surgical procedures: Intramedullary nail left intertrochanteric femur fracture Brief history: Patient is a 78-year-old male who had presented to [facility] on 10/01/2024 for evaluation of a left hip injury. It was determined patient had a displaced left intertrochanteric femur fracture, he was admitted under our orthopedic care with plan for surgical intervention. Hospital course: Details of patient's surgery can be found in operative report. Patient tolerated the procedure well and was subsequently transported to orthopedic floor. Patient's orthopeidc and medical care was provided daily. Patient had daily laboratory tests performed for evaluation of overall blood counts. Patient had daily physical therapy to include strengthening range of motion as well as education with walker ambulation. Patient was treated with Lovenox for their postoperative DVT prophylaxis during their inpatient stay. Patient was noted to have a relatively uneventful postoperative course. Patient reported satisfactory pain control with oral pain medications by postoperative day 0. Patient showed satisfactory progress with physical therapy. Patient moved steadily through the program and had no difficulty meeting the goals by postoperative day 2. Given patient's otherwise satisfactory course and having met physical therapy goals, plan is to discharge patient subacute rehab on postoperative day 2. Discharge condition/disposition: Patient will be discharged subacute rehab in stable condition. Discharge medications: Instructions are given on resumption of patient's normal daily medications per primary care recommendation, in addition patient will be prescribed Tylenol 3, Lovenox, senna S. Discharge instructions: 1. Wound care and infection precautions, keep incision dry and covered while showering, no lotions, creams, moisturizers. No soaking, tubs, pools, hottubs. Do not scrub over the incision. 2. Weight-bear as tolerated with walker / cane until follow-up. 3. Ice and elevate when necessary. Do not exceed 20 minutes per hour with ice pack. 4. Utilize compression sleeve until seen at first follow up appointment. 5. Visiting nursing care. 6. Home physical therapy. 7. Pain meds and anticoagulants per prescription. 8. Pain medication has potential to cause constipation. Increase oral fluid and fiber intake. Contact primary care provider if you have not had a bowel movement within 48 hours after discharge 9. No anti-inflammatory medication until discussed at first post operative visit, this including Motrin, Aleve, Mobic, Diclofenac. 10. Follow up in office at 2 weeks postop with Chris Reeder PA-C/Noah Paz 11. Follow up with your primary care doctor 7-10 days after discharge. 12. Contact [facility] with any questions, . Assessment: Displaced three-part left intertrochanteric femur fracture Procedures: Intramedullary nail left intertrochanteric femur fracture Patient Condition at Discharge: Fair Plan - Discharge Summary Discharge Rx Participant: No New Discharge Prescriptions: New Sennosides/Docusate Sodium [Senna Plus 8.6-50 mg Softgel] 1 each PO DAILY #20 capsule Enoxaparin [Lovenox] 40 mg SQ DAILY #28 each Acetaminophen-Codeine 300-30mg [Tylenol w/codeine #3] 1 tab PO Q6H PRN 3 Days #12 tablet PRN Reason: Pain No Action Pramipexole [Mirapex] 0.25 mg PO TID@0500,1300,2100 busPIRone HCL [Buspar] 7.5 mg PO BID@0800,2000 Tamsulosin [Flomax] 0.4 mg PO DAILY@0800 LORazepam [Ativan] 0.5 mg PO Q12H PRN PRN Reason: Anxiety Magic Cup 1 dose PO TID@0800,1200,1800 Sertraline [Zoloft] 25 mg PO DAILY@0800 Midodrine [ProAmatine] 5 mg PO TID@0500,1300,2100 Carbidopa-Levodopa 25-250 mg [Sinemet 25-250] 1 tab PO QID@05,11,,23 Discharge Medication List Pramipexole [Mirapex] 0.25 mg PO TID@0500,1300,2100 08/21/23 [History] busPIRone HCL [Buspar] 7.5 mg PO BID@0800,2000 10/14/23 [History] Midodrine [ProAmatine] 5 mg PO TID@0500,1300,2100 08/24/24 [History] Sertraline [Zoloft] 25 mg PO DAILY@0800 08/24/24 [History] Tamsulosin [Flomax] 0.4 mg PO DAILY@0800 08/24/24 [History] Carbidopa-Levodopa 25-250 mg [Sinemet 25-250] 1 tab PO QID@05,11,17,23 10/01/24 [History] LORazepam [Ativan] 0.5 mg PO Q12H PRN 10/01/24 [History] Magic Cup 1 dose PO TID@0800,1200,1800 10/01/24 [History] Acetaminophen-Codeine 300-30mg [Tylenol w/codeine #3] 1 tab PO Q6H PRN 3 Days #12 tablet 10/04/24 [Rx] Enoxaparin [Lovenox] 40 mg SQ DAILY #28 each 10/04/24 [Rx] Sennosides/Docusate Sodium [Senna Plus 8.6-50 mg Softgel] 1 each PO DAILY #20 capsule 10/04/24 [Rx] Follow up Appointment(s)/Referral(s): Noah Barros PAC [PHYSICIAN GAS PUMP ATTENDANT] - 2 Weeks Manuel Frederick MD [Primary Care Provider] - 1-2 days [facility], [NON-STAFF] - As Needed Patient Instructions/Handouts: Intramedullary Nailing (GEN) Activity/Diet/Wound Care/Special Instructions: Orthopedic Discharge Instructions: 1. Wound care and infection precautions, keep incision dry and covered while showering, no lotions, creams, moisturizers. No soaking, pools, hot tubs. Do not scrub over incision. 2. Weight-bear as tolerated with walker / cane until follow-up. 3. Ice and elevate when necessary. Do not exceed 20 minutes per hour with ice pack. 4. Utilize compression sleeve until seen at first follow up appointment. 5. Pain meds and anticoagulants per prescription. 6. Pain medication has potential to cause constipation. Increase oral fluid and fiber intake. Contact primary care provider if you have not had a bowel movement within 48 hours after discharge. 7. No anti-inflammatory medication until discussed at first post operative visit, this including Motrin, Aleve, Mobic, Diclofenac. 8. Follow up in office at 2 weeks postop with Chris Reeder PA-C / Noah Barros PA-C 9. Follow up with your primary care doctor 7-10 days after discharge. 10. Contact [facility] with any questions, . Keep dressing clean, dry, intact. okay to change post-op dressing and use opti- foam over incisions. Discharge Disposition: TRANSFER TO SNF/ECF
[2024-10-04 15:06] VITALS: BP 94/55; PULSE 69; TEMP 98.1
--- NOTE | 2024-10-04 17:50 | P.PN ---
Progress Note - Text Progress Note Date: 10/04/24 Chief Complaint Fall - History of Present Illness Pleasant 78-year-old patient. Follows with visiting physicians Dr. Frederick. Currently a resident of [facility]. Does use a walker. Chronic medical conditions include Parkinson's, depression, BPH. Patient was brought by the EMS from the [facility]. Staff reported they heard the patient fall in the room. Patient is found on the floor next to his bed. Patient complaining of left hip pain. It was shortened and rotated. Patient has limited exercise tolerance because of underlying condition. Denies any prior cardiac history. No chest pain or shortness of breath. October 02: Patient was seen by me this morning. In bed. NPO. Later this afternoon intramedullary nailing was carried out by Dr. Proctor. October 03: Up in a chair. Significant pain at the operative site. Oral intake 25- 50%. PT OT on the case. Currently maximum assist October 04: Has been up in the chair. Improvement in pain. Oral intake better. Patient seen by me this afternoon. Discussed Social history: Currently at [facility]. Patient stopped smoking in 2011 smoked a pack a day for close to 30 years. Stopped drinking in 2018 was a heavy drinker prior to that. Is using a walker Physical examination: VITAL SIGNS: 98.2, 67, 16, 107 x 58, 96% room air GENERAL: BMI 18.2, up in a recliner, more comfortable today EYES: Pupils equal. Conjunctiva jeffery l. HEENT: External appearance of nose and ears normal, oral cavity grossly normal. NECK: JVD not raised; masses not palpable. HEART: First and second heart sounds are normal; no edema. LUNGS: Respiratory rate normal; diminished breath sound. ABDOMEN: Soft, nontender, liver spleen not palpable, no masses palpable. PSYCH: Awake, able to answer and hold simple conversation]l. MUSCULOSKELETAL:No Clubbing/cyanosis;muscles-grossly intact. 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 NEUROLOGICAL: Cranial nerves grossly intact; no facial asymmetry, power and sensation grossly intact. Fine tremors INVESTIGATIONS, reviewed in the clinical context: October 03: White count 5.3 hemoglobin 10.2 platelets manage 5 potassium 4.1 creatinine 0.79 October 01, 2026: White count 5.6 hemoglobin 9.8 platelets 197 sodium 137 potassium 3.6 creatinine 0.69 EKG tracing personally reviewed by me-normal sinus rhythm Chest x-ray film personally reviewed by me-possibly some chronic changes upper zone. Some hyperinflation CT head without contrast: Unremarkable Left hip x-ray: Mildly displaced IT femoral neck fracture. Assessment plan: - Acute mildly displaced IT femoral neck fracture secondary to fall Pain control. Dr. Proctor: Intramedullary nailing done October 02 - Parkinson disease, chronic Sinemet 4 times daily. Mirapex 0.25 mg 3 times daily - Hypotension Midodrine 5 mg 3 times daily - Depression anxiety BuSpar 7.5 mg twice daily. Zoloft 25 mg a day. - BPH Flomax 0.4 mg a day - Mild protein calorie malnutrition from decreased oral intake Ensure supplement - Acute gait dysfunction and medical debility from fracture and surgical repair PT OT - Full code Continue current medication. Discussed with patient. PT OT. Thank you Dr. Proctor Past Medical History Additional Past Medical History / Comment(s): Parkinson's, hiatal hernia History of Any Multi-Drug Resistant Organisms: None Reported Past Surgical History: Tonsillectomy Additional Past Surgical History / Comment(s): hernia repair 2023 Past Anesthesia/Blood Transfusion Reactions: No Reported Reaction Past Psychological History: Anxiety, Depression Smoking Status: Former smoker Past Alcohol Use History: None Reported Past Drug Use History: None Reported
[2024-10-04 20:07] LABS: Basophils # (A) 0.03 X 10*3/uL (0.00-0.10); Basophils % (A) 0.5 %; Eosinophils # (A) 0.16 X 10*3/uL (0.04-0.35); Eosinophils % (A) 2.7 %; HCT 32.2 % (39.6-50.0); HGB 10.5 g/dL (13.0-17.0); Immature Grans, Automated 0.70 %; Lymphocytes # (A) 0.74 X 10*3/uL (0.90-5.00); Lymphocytes % (A) 12.7 %; MCH 32.9 pg (27.0-32.0); MCHC 32.6 g/dL (32.0-37.0); MCV 100.9 FL (80.0-97.0); Monocytes # (A) 0.64 X 10*3/uL (0.20-1.00); Monocytes % (A) 11.0 %; NRBC Per 100 WBC 0 X 10*3/uL (0.00-0.01); Neutrophils # (A) 4.22 X 10*3/uL (1.80-7.70); Neutrophils % (A) 72.4 %; Platelet Count 232 X 10*3/uL (140-440); RBC 3.19 X 10*6/uL (4.40-5.60); RDW 13.5 % (11.5-14.5); WBC 5.83 X 10*3/uL (4.50-10.00)
== END 2024-10-04 15:51 | DRG 481 ==
LOC: EC 02:16 → 4SSUR 04:57
PROVIDERS: ADMIT Orthopaedic Surgery; ATTEND Orthopaedic Surgery
PROC: 0QS706Z Reposition Left Upper Femur with Intramedullary Internal Fixation Device, Open Approach (ICD-10-PCS; principal; 2024-10-02 12:35)
DX: S72.142A Displaced intertrochanteric fracture of left femur, initial encounter for closed fracture (principal); E44.1 Mild protein-calorie malnutrition; G20.A1 Parkinson's disease without dyskinesia, without mention of fluctuations; F32.A Depression, unspecified; Z68.1 Body mass index [BMI] 19.9 or less, adult; I95.9 Hypotension, unspecified; F41.9 Anxiety disorder, unspecified; N40.0 Benign prostatic hyperplasia without lower urinary tract symptoms; W18.30XA Fall on same level, unspecified, initial encounter; Y92.122 Bedroom in nursing home as the place of occurrence of the external cause; Z87.891 Personal history of nicotine dependence; Z79.899 Other long term (current) drug therapy
CPT/HCPCS: 36415; 70450; 71045; 72125; 73502; 80048; 80053; 85025; 85610; 85730; 93005; 96361; 96374; 99285